=== PATIENT | male | born 1950 | race Caucasian/White ===

== ENCOUNTER 2018-01-30 11:02 | Day surgery (SDC) | payer MEDICARE ==
[2018-01-24 10:38] VITALS: BMI 34.5
[~2018-01-30 11:02] MED LIST: ALPRAZolam 0.25 MG TAB PO PRN; ASPIRIN 325 MG TAB PO STA; SODIUM CHLORIDE 0.9% 1,000 ML in EMPTY BAG 1 BAG IV ONE
[2018-01-30 11:19] LABS: Glucose,Whole Blood 92 mg/dL (75-99)
[2018-01-30 11:29] VITALS: TEMP 98.2
[2018-01-30] MEDS ORDERED: ASPIRIN 81 MG ONE (11:31)
[2018-01-30] MEDS ORDERED: VERAPAMIL 2.5 MG/ML 2 ML AMP ONE (12:39)
[2018-01-30] MEDS ORDERED: LIDOCAINE 2% INJ 20 MG/ML (20 ML MDV) ONE (12:39)
[2018-01-30] MEDS ORDERED: fentaNYL (PF) 50 MCG/ML 2 ML AMP ONE (12:39)
[2018-01-30] MEDS ORDERED: fentaNYL (PF) 50 MCG/ML 2 ML AMP IV ONE (12:50)
[2018-01-30] MEDS ORDERED: LIDOCAINE 2% INJ 20 MG/ML SQ ONE (12:52)
[2018-01-30] MEDS ORDERED: VERAPAMIL SYRINGE (5 MG/10 ML) INTRAARTER ONE (12:55)
[2018-01-30 13:01] LABS: Basophils # (A) 0.1 k/uL (0-0.2); Basophils % (A) 1 %; Eosinophils # (A) 0.2 k/uL (0-0.7); Eosinophils % (A) 2 %; HCT 53.1 % (39.0-53.0); HGB 17.2 gm/dL (13.0-17.5); Lymphocytes # (A) 4.5 k/uL (1.0-4.8); Lymphocytes % (A) 41 %; MCHC 32.5 g/dL (31.0-37.0); MCV 86.3 fL (80.0-100.0); Monocytes # (A) 0.6 k/uL (0-1.0); Monocytes % (A) 5 %; Neutrophils # (A) 5.4 k/uL (1.3-7.7); Neutrophils % (A) 49 %; Platelet Count 218 k/uL (150-450); RBC 6.15 m/uL (4.30-5.90); RDW 14.7 % (11.5-15.5); WBC 11.1 k/uL (3.8-10.6)
[2018-01-30] MEDS ORDERED: HEPARIN SODIUM 1,000 UN/ML (10ML VL) ONE (13:03)
[2018-01-30] MEDS ORDERED: IOPAMIDOL-370 125ML BTL INJ ONE (13:07)
[2018-01-30] MEDS ORDERED: HEPARIN SODIUM 1,000 UN/ML (10ML VL) IV ONE (13:08)
[2018-01-30] MEDS ORDERED: RX INFO: IV CONTRAST WAS GIVEN 1 EACH MISC MISCELLANE PRN (13:22)
[2018-01-30] MEDS ORDERED: NITROGLYCERIN SL TABS 0.4 MG TAB SUBLINGUAL PRN (13:23)
[2018-01-30] MEDS ORDERED: SODIUM CHLORIDE 0.9% 1,000 ML IV SCH (13:30)
[2018-01-30 13:52] VITALS: RESP 18
--- NOTE | 2018-01-30 13:54 | CC ---
CARDIAC CATHETERIZATION REPORT Mr. Fermin is a 67-year-old male with known history of hypertension, hyperlipidemia, diabetes mellitus, prior history of coronary artery disease, who presented with symptoms of progressive angina pectoris. In view of that, recommendation made regarding cardiac catheterization. The procedures, risks and complication were discussed with the patient who was in full understanding and agreement. Of note, the patient has underwent percutaneous revascularization of the LAD in 2016 and subsequently repeat intervention in 2017. PROCEDURE: Patient was brought to the [facility] in a fasting semi-sedated state after receiving fentanyl and Benadryl and achieving moderate conscious sedated state. Using Xylocaine anesthesia and Seldinger technique, a 6-Ukrainian sheath was introduced in the right radial artery. Selective right and left angiography were performed using 5-Ukrainian 4 bend right and left Austin catheter. Multiple views of the coronary artery including hemiaxial views were obtained. Following that, a 5-Ukrainian tight pigtail catheter was introduced into left ventricle and a 30 degree MADRID view of the left ventricle was obtained. Following that, the catheter and sheaths were removed. Hemostasis was obtained with deployment of a TR band. There was no immediate complication. Patient is returned to his room in stable condition. Of note, the patient received 5000 units of intravenous heparin as well as intra-arterial verapamil. FINDINGS: 1. FLUOROSCOPY: There was significant calcification involving the coronary arteries. 2. LEFT MAIN: This is a short size vessel, bifurcating into left circumflex, left anterior descending artery. Left main coronary artery has no evidence of high- grade stenosis. 3. LEFT ANTERIOR DESCENDING ARTERY: This is a large-sized vessel reaching toward the apex with a wraparound apex segment giving rise to 3 diagonal branches. The stented segment in the proximal LAD is patent. The stented segment in the mid LAD has a long segment of in-stent restenosis and a significant stenosis involving involving the third diagonal branch. The rest of the vessel has no high-grade stenosis. 4. LEFT CIRCUMFLEX: This is a nondominant vessel giving rise to 2 obtuse marginal branches, the first one is large in caliber. Both of them have 80%-90% stenosis at the takeoff. 5. RIGHT CORONARY ARTERY: This is a calcified vessel, dominant, bifurcating distally into PDA and posterolateral segment and branches. The right coronary artery in mid segment has a 70%-80% stenosis. The rest of the vessel has no high-grade stenosis. 6. LEFT VENTRICULOGRAM: Left ventriculogram is performed in 30 degree MADRID view and revealed an intra-apical akinesis. The ejection fraction is estimated at 40%-45%. There was no significant mitral regurgitation. HEMODYNAMICS: There was no gradient across the aortic valve. The left ventricular end-diastolic pressure was 60 mmHg. CONCLUSION: 1. Significant in-stent restenosis of the left anterior descending artery with a obstructive disease in the diagonal branch. 2. Significant disease in the right coronary artery as well as the left circumflex. 3. Moderately impaired left ventricular systolic function. RECOMMENDATION: In view of finding anatomy and a history of diabetes mellitus, I have recommended proceeding with coronary artery bypass grafting, the rationale behind the recommendation was discussed with the patient who is in full understanding and agreement. Duration of the procedure 21 minute. MMODL / IJN: [id number] /
--- NOTE | 2018-01-30 14:00 | LTR ---
DATE OF SERVICE: 01/30/2018 RE: Wayne Fermin Dear Dr. Miles; I had the pleasure to perform cardiac catheterization on Mr. Fermin at [facility] on January 30, 2018. A full copy of the procedure note will be forwarded to you. In brief, he was found to have significant progression of disease with significant in- stent restenoses and based on those findings, I recommend proceeding with evaluation for coronary artery bypass grafting. I will keep you updated on his progress and thank you again for allowing me to participate in this patient's care. Please feel free to call for any questions. Sincerely yours, Felicia Randall MD MMGENOL / TERENCEN: [id number] /
--- NOTE | 2018-01-30 14:38 | P.GSCN ---
<Shanel Gutiérrez - Last Filed: 01/30/18 14:24> History of Present Illness Consult date: 01/30/18 Reason for Consult: Multivessel coronary artery disease, surgical revascularization recommendations. Requesting physician: Felicia Randall History of present illness: This is a 67-year-old gentleman who follows with Dr. Alexander Miles on an outpatient basis. He does have a previous medical history of insulin-dependent diabetes mellitus, currently on insulin pump, coronary artery disease with previous myocardial infarction in 2016, stent placement to the proximal LAD in March 2016, stent placement to the ostial diagonal and mid LAD in December 2016, hypertension, hyperlipidemia, family history of early coronary artery disease, obstructive sleep apnea status post surgical revision and no current CPAP use, previous tobacco dependence, patient quit smoking 30-40 years ago. This gentleman presented to Dr. Randall's office with complaints of burning type chest pain with activity, relieved at rest. Associated symptoms include shortness of breath and diaphoresis. Patient denies paroxysmal nocturnal dyspnea, orthopnea, edema, palpitations, syncopal episodes, or stroke-like symptoms. He was brought to [facility] today for elective heart catheterization and was found to have right coronary artery stenosis of 70 %, circumflex stenosis of 90%, proximal LAD stenosis 20%, mid LAD stenosis 95%. LV gram was completed and demonstrated an ejection fraction of 45%. Dr. Epstein from cardiothoracic surgery was consulted regarding surgical revascularization recommendations. Review of Systems 14 point review of systems was completed and was negative except as noted. - Cardiovascular Reports as per HPI, Reports chest pain, Reports decreased exercise tolerance, Reports dyspnea on exertion, Reports high blood pressure, Reports palpitations, Reports shortness of breath - Respiratory Reports as per HPI, Reports dyspnea, Reports sleep apnea, Reports snoring - Gastrointestinal Reports as per HPI, Reports heartburn - Musculoskeletal bilateral: knee pain (Patient needs knee surgery but can't have until he receives cardiac clearance) Past Medical History Past Medical History: Coronary Artery Disease (CAD), COPD, Diabetes Mellitus, Hyperlipidemia, Hypertension, Myocardial Infarction (CT), Sleep Apnea/CPAP/BIPAP Additional Past Medical History / Comment(s): NO CPAP MACHINE (HAD SX), AWAITING SX ON DESTINI KNEES Last Myocardial Infarction Date:: 12/18/16 History of Any Multi-Drug Resistant Organisms: None Reported Past Surgical History: Appendectomy, Heart Catheterization With Stent, Hernia Repair, Tonsillectomy Additional Past Surgical History / Comment(s): 4 HEART STENTS, surgery for sleep apnea, INGUINAL HERNIA Past Anesthesia/Blood Transfusion Reactions: No Reported Reaction Date of Last Stent Placement:: 12/18/17 Past Psychological History: No Psychological Hx Reported Smoking Status: Former smoker Past Alcohol Use History: None Reported Past Drug Use History: None Reported - Past Family History Mother Family Medical History: Osteoarthritis (OA) Additional Family Medical History / Comment(s): MOM IS 86 YEARS OLD. Father Family Medical History: Coronary Artery Disease (CAD), Myocardial Infarction (CT ) Additional Family Medical History / Comment(s): HAD QUAD BYPASS . AT AGE [address] Medications and Allergies Home Medications Medication Instructions Recorded Confirmed Type Enalapril [Vasotec] 10 mg PO DAILY 02/02/16 01/30/18 History INSULIN LISPRO (humaLOG) [humaLOG] See Protocol SQ CONTINUOUS 02/02/16 01/24/18 History Metoprolol Tartrate [Lopressor] 50 mg PO DAILY 02/02/16 01/30/18 History Atorvastatin [Lipitor] 80 mg PO HS #90 tab 03/30/16 01/30/18 Rx Nitroglycerin Sl Tabs [Nitrostat] 0.4 mg SUBLINGUAL Q5M PRN #25 tab 03/30/16 Rx Aspirin [Adult Low Dose Aspirin EC] 81 mg PO DAILY 01/24/18 01/30/18 History Isosorbide Mononitrate [Isosorbide 30 mg PO DAILY 01/24/18 01/30/18 History Mononitrate ER] Levothyroxine Sodium [Synthroid] 50 mcg PO HS 01/24/18 01/30/18 History Allergies Allergy/AdvReac Type Severity Reaction Status Date / Time No Known Allergies Allergy Verified 01/24/18 10:33 Surgical - Exam Vital Signs Temp Pulse Resp BP Pulse Ox 98.2 F 67 18 127/70 94 L 01/30/18 11:20 01/30/18 11:20 01/30/18 11:20 01/30/18 11:20 01/30/18 11:20 - General well developed, well nourished, no distress, no pain, obese - Eyes PERRL, normal ocular movement - ENT no hearing loss - Neck no masses, no bruits, trachea midline - Respiratory Lungs sounds diminished bilaterally. Respirations even, nonlabored. Currently on room air with oxygen saturation 94%. No chest wall deformities. - Cardiovascular S1, S2 present. Regular rate and rhythm, sinus rhythm on telemetry with occasional PVCs. Palpable peripheral pulses bilaterally. No edema present. No varicosities noted to bilateral lower extremities. Left radial Issac's test is negative. - Abdomen Abdomen: soft, non tender, bowel sounds - Genitourinary Deferred - Rectum Deferred - Integumentary no rash, no growths, no abnormal pigmentation - Neurologic normal coordination, normal sensation - Psychiatric oriented to time, oriented to person, oriented to place, speech is normal, memory intact Results - Labs 01/30/18 11:20 Abnormal Lab Results - Last 24 Hours (Table) 01/30/18 Range/Units 11:20 WBC 11.1 H (3.8-10.6) k/uL RBC 6.15 H (4.30-5.90) m/uL Hct 53.1 H (39.0-53.0) % - Imaging Additional studies: Cardiac catheterization films reviewed. Assessment and Plan (1) Coronary artery disease Current Visit: Yes Status: Chronic Code(s): I25.10 - ATHSCL HEART DISEASE OF [place] CORONARY ARTERY W/O ANG PCTRS SNOMED Code(s): 39031825 (2) Insulin dependent diabetes mellitus Current Visit: Yes Status: Chronic Code(s): E11.9 - TYPE 2 DIABETES MELLITUS WITHOUT COMPLICATIONS; Z79.4 - TELEX OPERATOR (CURRENT) USE OF INSULIN SNOMED Code(s): 13788492 (3) History of myocardial infarction Current Visit: No Status: Resolved Code(s): I25.2 - OLD MYOCARDIAL INFARCTION SNOMED Code(s): 140079452 (4) History of coronary artery stent placement Current Visit: Yes Status: Chronic Code(s): Z95.5 - PRESENCE OF CORONARY ANGIOPLASTY IMPLANT AND GRAFT SNOMED Code(s): 816807559 (5) Hypertension Current Visit: Yes Status: Chronic Code(s): I10 - ESSENTIAL (PRIMARY) HYPERTENSION SNOMED Code(s): 83501810 (6) Hyperlipidemia Current Visit: Yes Status: Chronic Code(s): E78.5 - HYPERLIPIDEMIA, UNSPECIFIED SNOMED Code(s): 92190542 (7) History of obstructive sleep apnea Current Visit: Yes Status: Acute Code(s): Z86.69 - PERSONAL HISTORY OF DIS OF THE NERVOUS SYS AND SENSE ORGANS SNOMED Code(s): 821920236 (8) Family history of premature coronary artery disease Current Visit: Yes Status: Chronic Code(s): Z82.49 - FAMILY HX OF ISCHEM HEART DIS AND OTH DIS OF THE CIRC SYS SNOMED Code(s): 708849728 (9) Tobacco dependence in remission Current Visit: No Status: Resolved Code(s): F17.201 - NICOTINE DEPENDENCE, UNSPECIFIED, IN REMISSION SNOMED Code(s): 613237250 (10) Obesity (BMI 30-39.9) Current Visit: Yes Status: Chronic Code(s): E66.9 - OBESITY, UNSPECIFIED SNOMED Code(s): 406816296 Plan: The patient was seen and examined at the bedside in the [facility] with family present. Chart/diagnostics were reviewed. Will obtain relevant studies are completed it Dr. Randall's office. We will discuss the case in detail with Dr. Epstein. Preoperative teaching initiated, all questions answered. Preoperative testing initiated. Would recommend continuing aspirin, statin, beta lauri, KAIA inhibitor, Plavix. Patient will need to be off Plavix for 5-7 days prior to surgery. Medical management per Dr. Randall, Dr. Miles. More recommendations to follow. Thank you Dr. Randall for this consult. We look forward to working with you in the care of your patient. Time with Patient: Greater than 30 <Jd Epstein R - Last Filed: 01/30/18 15:36> Surgical - Exam Vital Signs Temp Pulse Resp BP Pulse Ox 98.2 F 67 18 127/70 94 L 01/30/18 11:20 01/30/18 11:20 01/30/18 11:20 01/30/18 11:20 01/30/18 11:20 Results - Labs 01/30/18 11:20 Abnormal Lab Results - Last 24 Hours (Table) 01/30/18 Range/Units 11:20 WBC 11.1 H (3.8-10.6) k/uL RBC 6.15 H (4.30-5.90) m/uL Hct 53.1 H (39.0-53.0) % Assessment and Plan Assessment: 67-year-old male with previous stenting of the left anterior descending in 2016 here in [place] and subsequent restenting of the LAD more distally in [place] in 2017. Patient now presents with anginal symptomatology. He is found to have three-vessel coronary artery disease with in-stent restenosis in the LAD more distal stent. Ventricular function is somewhat diminished although still above 40%. The anterior wall is somewhat hypokinetic. Recommendation is for coronary artery bypass surgery per Dr. Tate are some on and I agree with this recommendation. Plan bypass of the LAD beyond the stents the right coronary artery and the first obtuse marginal coronary artery. We will attempt to bypass the second obtuse marginal coronary artery, although it is a smaller and somewhat diseased vessel. Coronary bypass surgery will likely be performed by Dr. Selam More. Patient was seen and examined with the nurse practitioner. Films were reviewed with Dr. Randall. I agree with the evaluation of the nurse practitioner as documented. Met with the patient and his family. The indications for surgery, risks versus benefits and possible complications were outlined. STS risk for the procedure should be about 2% mortality. This was discussed with the patient. Patient's questions were answered to the best of my ability. Plan is to stop his Plavix and proceed with surgery sometime later next week.
[2018-01-30 14:48] VITALS: BP 115/79; PULSE 68
--- NOTE | 2018-01-30 15:52 | US ---
EXAMINATION TYPE: US carotid duplex BILAT DATE OF EXAM: 01/30/2018 COMPARISON: NONE CLINICAL HISTORY: PreOp cardiac surgery. Pre op cardiac surgery EXAM MEASUREMENTS: RIGHT: Peak Systolic Velocity (PSV) cm/sec ----- Right CCA: 48.8 ----- Right ICA: 47.4 ----- Right ECA: 95.0 ICA/CCA ratio: 1.0 RIGHT: End Diastole cm/sec ----- Right CCA: 10.8 ----- Right ICA: 17.0 ----- Right ECA: 0.0 LEFT: Peak Systolic Velocity (PSV) cm/sec ----- Left CCA: 51.7 ----- Left ICA: 64.5 ----- Left ECA: 112.9 ICA/CCA ratio: 1.2 LEFT: End Diastole cm/sec ----- Left CCA: 8.5 ----- Left ICA: 13.4 ----- Left ECA: 0.0 VERTEBRALS (direction of flow): Right Vertebral: Antegrade Left Vertebral: Antegrade Rhythm: Arrhythmia Bilateral intimal thickening, plaque bilateral bulb and proximal ICA greater on left side, no elevate d velocities, no significant stenosis. IMPRESSION: 1. Bilateral areas of plaque with no significant hemodynamic stenosis bilaterally. Criteria for Assigning % of Stenosis / Diameter reduction (Estimation based on the indirect measurements of the internal carotid artery velocities (ICA PSV). 1. Normal (no stenosis)=ICA PSV < 125 cm/s: ratio < 2.0: ICA EDV<40 cm/s. 2. Less than 50% stenosis=ICA PSV < 125 cm/s: ratio < 2.0: ICA EDV<40 cm/s. 3. 50 to 69% stenosis=ICA PSV of 125 to 230 cm/s: ration 2.0 ? 4.0: ICA EDV 40-100 cm/s. 4. Greater than 70% stenosis to near occlusion= ICA PSV > 230 cm/s: ratio > 4.0: ICA EDV > 100 cm/s. 5. Near occlusion= ICA PSV velocities may be low or undetectable: variable ratio and ICA EDV. 6. Total occlusion=unable to detect flow.
[2018-01-30 16:05] LABS: Basophils % (A) 0 %; Eosinophils # (A) 0.2 k/uL (0-0.7); Eosinophils % (A) 3 %; HGB 15.5 gm/dL (13.0-17.5); Lymphocytes # (A) 1.9 k/uL (1.0-4.8); Lymphocytes % (A) 27 %; MCH 27.7 pg (25.0-35.0); MCHC 31.6 g/dL (31.0-37.0); MCV 87.4 fL (80.0-100.0); Mean Platelet Volume 7.8; Monocytes # (A) 0.4 k/uL (0-1.0); Monocytes % (A) 5 %; Neutrophils # (A) 4.5 k/uL (1.3-7.7); Neutrophils % (A) 64 %; Platelet Count 171 k/uL (150-450); RDW 14.8 % (11.5-15.5); WBC 7.1 k/uL (3.8-10.6)
[2018-01-30 16:18] LABS: INR 1.1 (<1.2); Partial Thromboplastin Time 27.7 sec (22.0-30.0); Prothrombin Time 10.9 sec (9.0-12.0)
[2018-01-30 16:22] LABS: ALT 23 U/L (21-72); AST 21 U/L (17-59); Albumin 3.9 g/dL (3.5-5.0); Alkaline Phosphatase 76 U/L (38-126); Anion Gap 15 mmol/L; Blood Urea Nitrogen 14 mg/dL (9-20); Calcium 9.8 mg/dL (8.4-10.2); Carbon Dioxide 27 mmol/L (22-30); Chloride 102 mmol/L (98-107); Glucose 218 mg/dL (74-99); Magnesium 1.5 mg/dL (1.6-2.3); Potassium 4.5 mmol/L (3.5-5.1); Sodium 144 mmol/L (137-145); Total Bilirubin 0.4 mg/dL (0.2-1.3); Total Protein 6.2 g/dL (6.3-8.2)
[2018-01-30 16:58] LABS: Appearance,Urine Clear (Clear); Bilirubin,Urine Negative (Negative); Blood,Urine Negative (Negative); Color,Urine Yellow; Glucose,Urine (UA) 2+ (Negative); Ketones,Urine Negative (Negative); Leukocyte Esterase,Urine Negative (Negative); Nitrite,Urine Negative (Negative); Protein,Urine Trace (Negative); Urobilinogen,Urine <2.0 mg/dL (<2.0)
--- NOTE | 2018-01-30 17:22 | XR ---
EXAMINATION TYPE: XR chest 2V DATE OF EXAM: 01/30/2018 COMPARISON: 06/08/2016 HISTORY: Preop heart surgery TECHNIQUE: Frontal and lateral views of the chest are obtained. FINDINGS: There is no heart failure nor confluent pneumonic infiltrate. Costophrenic angles are shaneka r. There are chest leads. Bony thorax is intact. IMPRESSION: No active cardiopulmonary disease. No change.
[2018-01-30 17:40] LABS: Specific Gravity,Urine >1.050 (1.001-1.035)
[2018-01-30] MEDS ORDERED: LEVOTHYROXINE 50 MCG TAB PO SCH (21:00)
[2018-01-30] MEDS ORDERED: ATORVASTATIN 80 MG TAB PO SCH (21:00)
[2018-01-31 01:38] LABS: Hemoglobin A1C 8.8 % (4.0-6.0)
[2018-01-31 02:16] LABS: Hepatitis A Antibody IgM Non-Reactive (Non-Reactive); Hepatitis B Core IgM Non-Reactive (Non-Reactive)
[2018-01-31] MEDS ORDERED: METOPROLOL TARTRATE 50 MG TAB PO SCH (09:00)
[2018-01-31] MEDS ORDERED: NON-FORMULARY DRUG (Enalapril 10 MG) PO SCH (09:00)
[2018-01-31] MEDS ORDERED: NON-FORMULARY DRUG (Aspirin [Adult Low Dose Aspirin Ec] 81 MG) PO SCH (09:00)
[2018-01-31] MEDS ORDERED: ISOSORBIDE MONONITRATE ER 30 MG TAB.ER.24H PO SCH (09:00)
--- NOTE | 2018-01-31 10:14 | ECHOF ---
Referral Reason:preop cabg MEASUREMENTS -------- HEIGHT: 182.9 cm WEIGHT: 109.3 kg BP: RVIDd: 3.5 cm (< 3.3) IVSd: 1.6 cm (0.6 - 1.1) LVIDd: 4.4 cm (3.9 - 5.3) LVPWd: 1.3 cm (0.6 - 1.1) IVSs: 1.8 cm LVIDs: 2.9 cm LVPWs: 1.7 cm Ao Diam: 3.7 cm (2.0 - 3.7) AV Cusp: 2.1 cm (1.5 - 2.6) LA Diam: 3.4 cm (2.7 - 3.8) MV EXCURSION: 16.790 mm (> 18.000) MV EF SLOPE: 72 mm/s (70 - 150) EPSS: 0.8 cm MV E Jerry: 0.60 m/s MV DecT: 249 ms MV A Jerry: 0.64 m/s MV E/A Ratio: 0.93 RAP: 5.00 mmHg RVSP: 7.97 mmHg FINDINGS -------- Sinus rhythm with extra systolic beats. This was a technically difficult study with suboptimal views. The left ventricular size is normal. There is moderate concentric left ventricular hypertrophy. O verall left ventricular systolic function is mildly impaired with, an EF between 45 - 50 %. Basal l ateral LV wall motion is hypokinetic. The right ventricle is mildly enlarged. The left atrium is normal in size. The right atrium is normal in size. Lumason used Aortic valve is trileaflet and is mildly thickened. The mitral valve leaflets are mildly thickened. There is trace mitral regurgitation. Trace tricuspid regurgitation present. The right ventricular systolic pressure, as measured by Dopp ler, is 7.97mmHg. Pulmonic valve appears structurally normal. The aortic root size is normal. Normal inferior vena cava with normal inspiratory collapse consistent with estimated right atrial pre ssure of 5 mmHg. The pericardium is normal. CONCLUSIONS -------- 1. Sinus rhythm with extra systolic beats. 2. This was a technically difficult study with suboptimal views. 3. The left ventricular size is normal. 4. There is moderate concentric left ventricular hypertrophy. 5. Overall left ventricular systolic function is mildly impaired with, an EF between 45 - 50 %. 6. Basal lateral LV wall motion is hypokinetic. 7. The right ventricle is mildly enlarged. 8. The left atrium is normal in size. 9. The right atrium is normal in size. 10. Lumason used 11. Aortic valve is trileaflet and is mildly thickened. 12. The mitral valve leaflets are mildly thickened. 13. There is trace mitral regurgitation. 14. Trace tricuspid regurgitation present. 15. The right ventricular systolic pressure, as measured by Doppler, is 7.97mmHg. 16. Pulmonic valve appears structurally normal. 17. The aortic root size is normal. 18. Normal inferior vena cava with normal inspiratory collapse consistent with estimated right atrial pressure of 5 mmHg. 19. The pericardium is normal. COMMUNITY SERVICES COORDINATOR: Shanel Quinn RDCS
--- NOTE | 2018-02-06 11:25 | P.VSCSTY ---
Greater Saphenous Vein Mapping This is bilateral lower extremity greater saphenous vein mapping. Date of service 01/30/2018 Vein quality and ultrasound appearance no wall changes or intraluminal thrombus are seen. Vein size groin right 11 x 9.8 groin left 7.4 x 7.7 High thigh right 5.8 x 6.2 high thigh left 7.3 x 6.2 Mid thigh right 5.6 x 5.3 mid thigh left 6.1 x 5.7 Above-knee right 6.2 x 4.8 above-knee left 6.4 x 4.7 Below knee right 5.7 x 4.5 below-knee left 5.9 x 4.6 Mid calf right 6.2 x 4.1 mid calf left 5.0 x 3.7 Ankle right 4.8 x 3.3 ankle left 4.6 x 3.3 Impression usable bilateral greater saphenous vein.
== END 2018-01-30 18:05 | disposition home or self-care (01) ==
LOC: CATHCVL 11:02
PROVIDERS: ATTEND Internal Medicine Interventional Cardiology
DX: T82.855A Stenosis of coronary artery stent, initial encounter (principal); I25.110 Atherosclerotic heart disease of native coronary artery with unstable angina pectoris; I25.84 Coronary atherosclerosis due to calcified coronary lesion; I10 Essential (primary) hypertension; Z87.891 Personal history of nicotine dependence; I51.7 Cardiomegaly; I08.1 Rheumatic disorders of both mitral and tricuspid valves; E78.2 Mixed hyperlipidemia; E11.9 Type 2 diabetes mellitus without complications; Z79.4 Long term (current) use of insulin; Z96.41 Presence of insulin pump (external) (internal); I65.23 Occlusion and stenosis of bilateral carotid arteries; J44.9 Chronic obstructive pulmonary disease, unspecified; Z82.49 Family history of ischemic heart disease and other diseases of the circulatory system; Z01.810 Encounter for preprocedural cardiovascular examination; I25.2 Old myocardial infarction; E66.9 Obesity, unspecified; Z68.30 Body mass index [BMI] 30.0-30.9, adult; G47.33 Obstructive sleep apnea (adult) (pediatric); Z79.02 Long term (current) use of antithrombotics/antiplatelets; Z79.82 Long term (current) use of aspirin; Z79.890 Hormone replacement therapy; Z79.899 Other long term (current) drug therapy
CPT/HCPCS: 94150; 93458; 86900; 86901; 80053; 80074; 84443; 83735; 85025; 85610; 85730; 86850; 81003; 87070; 87086; 83036; 71046; 93970; 93880; C8929; C1894; C1769; J2001; J3010; J1644; Q9950; Q9967; 93306

== ENCOUNTER → 2018-02-01 | Outpatient (CLI) | payer MEDICARE ==
--- NOTE | 2018-02-06 11:28 | P.ARTDOP ---
Arterial Doppler Bilateral radial artery studies: Doppler assessment shows no right to left or segmental pressure gradient. Digital plethysmography with radial artery compression shows no significant pressure change. Imaging shows the right to vary between 2.8 x 2.6 and 6.1 x 5.6 mm. The left varies between 2.6 x 2.8 and 5.2 x 5.3 mm. Impression: Large usable bilateral radial arteries.
== END | disposition home or self-care (01) ==
LOC: RADUSWWP 07:47
PROVIDERS: ATTEND Surgery
DX: Z01.818 Encounter for other preprocedural examination (principal); I25.10 Atherosclerotic heart disease of native coronary artery without angina pectoris
CPT/HCPCS: 93923; 93930

== ENCOUNTER 2018-02-05 05:33 | Inpatient (IN) | payer MEDICARE ==
[~2018-02-05 05:33] MED LIST changes: +ALBUMIN HUMAN 25% 50 ML IV ONE; +ALBUMIN HUMAN 5% 500 ML IVPB ONE; -ALPRAZolam 0.25 MG TAB PO PRN; +ASPIRIN 325 MG TAB PO ONE; -ASPIRIN 325 MG TAB PO STA; +ATORVASTATIN 10 MG TAB PO ONE; +CALCIUM CHLORIDE 100 MG/ML 10 ML SYRINGE IV ONE; +CHLORHEXIDINE GLUCONATE 15 ML CUP MUCOUS MEM ONE; +CLEVIDIPINE BUTYRATE 25 MG in EMPTY BAG 1 BAG IV ONE; +DEXTROSE 5% IN WATER 1,000 ML with POTASSIUM CHLORIDE 110 MEQ, MAGNESIUM SULFATE 16 MEQ... IV ONE; +DEXTROSE 5% IN WATER 1,000 ML with POTASSIUM CHLORIDE 25 MEQ, SODIUM CHLORIDE 2.5MEQ/ML... IRRIGATION ONE; +HEPARIN SODIUM 1,000 UN/ML (10ML VL) IV ONE; +HEPARIN SODIUM,PORCINE 5,000 UNIT in SODIUM CHLORIDE 0.9% 500 ML IV ONE; +INSULIN REGULAR 100 UNIT in SODIUM CHLORIDE 0.9% 100 ML IV ONE; +LACTATED RINGERS 1,000 ML IV ONE; +MAGNESIUM SULFATE MG 500 MG/ML VIAL IV ONE; +MANNITOL 25% 12.5 GM/50 ML VIAL IV ONE; +METOPROLOL TARTRATE 12.5 MG TAB PO ONE; +NITROGLYCERIN SL TABS 0.4 MG TAB SUBLINGUAL ONE; +NITROGLYCERIN-D5W PMX 25 MG/250 ML BTL IV ONE; +NITROGLYCERIN-D5W PMX 50 MG in DEXTROSE/WATER 1 250ML.BAG IV ONE; +NOREPINEPHRIN 4 MG-0.9% NS PMX 4 MG/250 ML ML IV ONE; +PAPAVERINE 360 MG in SODIUM CHLORIDE 0.9% 90 ML IV ONE; +PHENYLEPHRINE 40 MG in SODIUM CHLORIDE 0.9% 250 ML IV ONE; +PHENYLEPHRINE-0.9% NACL SYG 1 MG/10 ML SYRINGE IV ONE; +PROPOFOL 1,000 MG/100 ML VIAL IV ONE; +PROTAMINE SULFATE 10 MG/ML 25 ML VIAL IV ONE; +PROTAMINE SULFATE 250 MG in EMPTY BAG 1 BAG IV ONE; +SODIUM BICARB 8.4% 50 ML SYR (1 MEQ/ML) IV ONE; +SODIUM CHLORIDE 0.9% 1,000 ML IV ONE; -SODIUM CHLORIDE 0.9% 1,000 ML in EMPTY BAG 1 BAG IV ONE; +TRANEXAMIC ACID 2,000 MG in SODIUM CHLORIDE 0.9% 180 ML IV ONE; +ceFAZolin 1,000 MG in SODIUM CHLORIDE 0.9% IRRIGATIO 1,000 ML IRRIGATION ONE; +ceFAZolin 2,000 MG in SODIUM CHLORIDE 0.9% 30 ML IVPB ONE
[2018-02-05 06:17] LABS: Glucose,Whole Blood 111 mg/dL (75-99)
[2018-02-05] MEDS ORDERED: DILTIAZEM 50 MG in SODIUM CHLORIDE 0.9% 40 ML IV STA (07:56)
[2018-02-05 08:48] LABS: ABG Base Excess 0.9 mmol/L; ABG HCO3 26 mmol/L (21-25); ABG PCO2 42 mmHg (35-45); ABG PO2 324 mmHg (83-108); ABG Sodium Whole Blood 141 mmol/L (135-146); ABG TCO2 27 mmol/L (19-24)
[2018-02-05 11:00] LABS: ABG Base Excess 1.1 mmol/L; ABG HCO3 26 mmol/L (21-25); ABG Oxygen Saturation 99.9 % (94-97); ABG PCO2 40 mmHg (35-45); ABG PH 7.42 (7.35-7.45); ABG PO2 259 mmHg (83-108); ABG Potassium Whole Blood 4.2 mmol/L (3.4-4.5); ABG Sodium Whole Blood 139 mmol/L (135-146); ABG TCO2 27 mmol/L (19-24)
[2018-02-05 11:49] LABS: ABG Base Excess -0.2 mmol/L; ABG HCO3 26 mmol/L (21-25); ABG Oxygen Saturation 99.6 % (94-97); ABG PCO2 46 mmHg (35-45); ABG PH 7.36 (7.35-7.45); ABG PO2 187 mmHg (83-108); ABG Potassium Whole Blood 5.3 mmol/L (3.4-4.5); ABG Sodium Whole Blood 135 mmol/L (135-146); ABG TCO2 27 mmol/L (19-24)
[2018-02-05 12:17] LABS: ABG HCO3 25 mmol/L (21-25); ABG PCO2 45 mmHg (35-45); ABG PH 7.35 (7.35-7.45); ABG PO2 313 mmHg (83-108); ABG Potassium Whole Blood 4.7 mmol/L (3.4-4.5); ABG Sodium Whole Blood 137 mmol/L (135-146); ABG TCO2 26 mmol/L (19-24)
[2018-02-05 13:02] LABS: ABG Base Excess -1.3 mmol/L; ABG HCO3 25 mmol/L (21-25); ABG Oxygen Saturation 99.7 % (94-97); ABG PCO2 48 mmHg (35-45); ABG PH 7.32 (7.35-7.45); ABG PO2 229 mmHg (83-108); ABG Potassium Whole Blood 4.6 mmol/L (3.4-4.5); ABG Sodium Whole Blood 137 mmol/L (135-146); ABG TCO2 27 mmol/L (19-24)
[2018-02-05 13:25] LABS: ABG Base Excess -1.9 mmol/L; ABG HCO3 25 mmol/L (21-25); ABG Oxygen Saturation 95.4 % (94-97); ABG PCO2 49 mmHg (35-45); ABG PH 7.31 (7.35-7.45); ABG PO2 84 mmHg (83-108); ABG Sodium Whole Blood 139 mmol/L (135-146); ABG TCO2 26 mmol/L (19-24)
[2018-02-05] MEDS ORDERED: ONDANSETRON 4 MG/2 ML VIAL IVP PRN (14:07)
[2018-02-05] MEDS ORDERED: DEXTROSE 5% IN WATER 100 ML with AMIODARONE 150 MG IV PRN (14:07)
[2018-02-05] MEDS ORDERED: Phosphorus Replacement Protoco 1 EACH MISC MISCELLANE PRN (14:07)
[2018-02-05] MEDS ORDERED: Potassium Replacement Protocol 1 EACH MISC MISCELLANE PRN (14:07)
[2018-02-05] MEDS ORDERED: CALCIUM GLUCONATE 2,000 MG in SODIUM CHLORIDE 0.9% 100 ML IVPB PRN (14:07)
[2018-02-05] MEDS ORDERED: Magnesium Replacement Protocol 1 EACH MISC MISCELLANE PRN (14:07)
[2018-02-05] MEDS ORDERED: ASPIRIN 300 MG SUPP RECTAL STA (14:17)
[2018-02-05] MEDS: NITROGLYCERIN-D5W PMX 50 MG in DEXTROSE/WATER 1 250ML.BAG IV SCH (14:30)
[2018-02-05] MEDS: INSULIN REGULAR 100 UNIT in SODIUM CHLORIDE 0.9% 100 ML IV SCH (14:30)
[2018-02-05] MEDS: PROPOFOL 1,000 MG in EMPTY BAG 1 BAG IV SCH ×2 (14:30→23:25)
[2018-02-05 14:51] LABS: Glucose,Whole Blood 149 mg/dL (75-99)
[2018-02-05] MEDS: LACTATED RINGERS 1,000 ML IV SCH (14:57)
[2018-02-05 14:58] LABS: Ionized Calcium 5.1 mg/dL (4.5-5.3)
[2018-02-05 14:59] LABS: Basophils % (A) 0 %; Eosinophils # (A) 0.1 k/uL (0-0.7); Eosinophils % (A) 1 %; HCT 36.5 % (39.0-53.0); Lymphocytes # (A) 1.3 k/uL (1.0-4.8); Lymphocytes % (A) 22 %; MCH 28.4 pg (25.0-35.0); MCHC 32.6 g/dL (31.0-37.0); MCV 87.2 fL (80.0-100.0); Mean Platelet Volume 8.4; Monocytes # (A) 0.3 k/uL (0-1.0); Monocytes % (A) 5 %; Neutrophils % (A) 71 %; Platelet Count 113 k/uL (150-450); RBC 4.18 m/uL (4.30-5.90); RDW 14.7 % (11.5-15.5); WBC 5.6 k/uL (3.8-10.6)
[2018-02-05] MEDS ORDERED: AMIODARONE 450 MG in DEXTROSE 5% IN WATER 250 ML IV PRN ×2 (15:00)
[2018-02-05 15:02] LABS: INR 1.2 (<1.2); Partial Thromboplastin Time 30.5 sec (22.0-30.0); Prothrombin Time 11.3 sec (9.0-12.0)
[2018-02-05 15:05] LABS: ABG Base Excess -0.8 mmol/L; ABG HCO3 26 mmol/L (21-25); ABG Oxygen Saturation 99.7 % (94-97); ABG PCO2 52 mmHg (35-45); ABG PO2 297 mmHg (83-108); ABG TCO2 27 mmol/L (19-24)
[2018-02-05 15:09] LABS: ALT 16 U/L (21-72); AST 26 U/L (17-59); Albumin 3.4 g/dL (3.5-5.0); Alkaline Phosphatase 54 U/L (38-126); Anion Gap 13 mmol/L; Blood Urea Nitrogen 13 mg/dL (9-20); Calcium 8.8 mg/dL (8.4-10.2); Carbon Dioxide 25 mmol/L (22-30); Chloride 105 mmol/L (98-107); Glucose 150 mg/dL (74-99); HGB 11.9 gm/dL (13.0-17.5); Magnesium 2.2 mg/dL (1.6-2.3); Potassium 4.1 mmol/L (3.5-5.1); Sodium 143 mmol/L (137-145); Total Bilirubin 0.6 mg/dL (0.2-1.3); Total Protein 5.1 g/dL (6.3-8.2)
--- NOTE | 2018-02-05 15:12 | XR ---
EXAMINATION TYPE: XR chest 1V portable DATE OF EXAM: 02/05/2018 CLINICAL HISTORY: Postoperative cardiac surgery TECHNIQUE: Single AP portable frontal view of the chest is obtained. COMPARISON: Chest x-ray from January 30, 2018 FINDINGS: There is new endotracheal tube with tip at aortic knob level, approximately 2 to 3 cm abo ve kaleigh. Advise pulling back 2 to 3 cm. There is new orogastric tube projecting below left hemidiaphragm. There are new bilateral chest tubes . There is new right internal jugular [place] catheter with tip at level of the pulmonary outflow t ract. New sternal wires and mediastinal clips are present. There is persistent low lung volumes. There is s table mild cardiomegaly with new moderate central vascular congestion. There is right hilar linear at electasis and more focal left basilar atelectasis and/or less likely infiltrate. No large pleural eff usion or pneumothorax is seen bilaterally. IMPRESSION: 1. New tubes and lines as detailed above, advise pulling back endotracheal tube 2 to 3 cm. 2. Low lung volumes and mild cardiomegaly with new moderate central vascular congestion and patchy bi lateral atelectatic change most prominent in the left lung base.
[2018-02-05 15:41] LABS: Glucose,Whole Blood 145 mg/dL (75-99)
[2018-02-05] MEDS: IPRATROPIUM-ALBUTEROL 3 ML NEB INHALATION SCH ×3 (15:56→23:16)
--- NOTE | 2018-02-05 16:12 | OP ---
OPERATIVE REPORT DATE OF SURGERY: 02/05/2018. SURGEON: Selam More MD ASSISTANTS: 1. Orlando BUSH. 2. Thee De Leon. 3. Bhaskar Benjamin. PREOPERATIVE DIAGNOSES: 1. Triple-vessel coronary artery disease, status post remote stenting of his left anterior descending coronary artery x 2. 2. Mild left ventricular dysfunction. 3. Hypertension. 4. Insulin-dependent diabetes mellitus. 5. Varicose veins. POSTOPERATIVE DIAGNOSES: 1. Triple-vessel coronary artery disease, status post remote stenting of his left anterior descending coronary artery x 2. 2. Mild left ventricular dysfunction. 3. Hypertension. 4. Insulin-dependent diabetes mellitus. 5. Varicose veins. PROCEDURES: 1. Coronary artery bypass grafting x3 using the left internal mammary artery to the left anterior descending artery, left radial artery from the aorta to the second obtuse marginal artery, reverse saphenous vein graft from the aorta to the right coronary artery. 2. Endoscopic harvesting of the left radial artery. 3. Endoscopic harvesting of the right greater saphenous vein from knee to ankle level. 4. Intraoperative transesophageal echocardiogram and epiaortic scanning. 5. Intraoperative graft flow measurements using the [employer] system. INDICATION FOR SURGERY: Patient is a 67-year-old gentleman with prior intervention on his LAD twice with a total of 3 stents, with recurrent anginal symptoms. Cardiac catheterization showed triple-vessel coronary artery disease. The patient is on chronic Plavix. His ejection fraction showed a 45% ejection fraction with no significant valvular abnormality. He clinically had varicose veins. The vein appeared to be large by ultrasound. The patient was brought in today 5 days after stopping his Plavix for triple-vessel coronary artery bypass grafting toward LAD, the biggest obtuse marginal artery, and the right coronary artery. The STS risk was discussed with him and his family. They understood it and agreed to proceed. DESCRIPTION OF PROCEDURE: With patient in supine position, right internal jugular [place] catheter was inserted as well as a left brachial arterial line. The patient had a cardiac index of 2 , PA pressure of 48/23. Subsequently he was brought to the operating room, where general endotracheal anesthesia was induced uneventfully. Two grams of cefazolin were given intravenously. A Garcia catheter was inserted. The chest, abdomen, both lower extremities and the left upper extremity were prepped and draped using ChloraPrep. Ioban was used to cover the skin. Transesophageal echocardiogram confirmed the preoperative finding of mild anteroapical hypokinesia and an ejection fraction of around 50% and no significant valvular abnormality. Midline sternotomy was performed and no bone wax was used. The left hemisternum was elevated and the left internal mammary artery was harvested in a semi- skeletonized fashion. The left pleura was intentionally opened in this process and was drained with a 28-Wallisian chest tube. The right pleura had also a breach in it and was drained also with another 28-Wallisian chest tube. In the same setting, the left radial artery was harvested endoscopically. It was initially exposed at the wrist, where a clamping trial revealed a preserved oxygen pulsatile signal in the left index finger. The forearm incision was closed over a drain. Also in the same setting, the right greater saphenous vein was harvested endoscopically from ankle to knee level after administration of 1500 units of heparin. The leg incisions were closed over a drain. Mediastinal fat was transected between 2 ties and epiaortic scanning revealed concentric intimal thickening but no protruding atheroma of the ascending aorta. Pericardium was opened in an inverted T-fashion and a pericardial cradle was created. Findings included a short soft aorta and a normal-sized heart. After systemic heparinization after placement of respective pledgeted pursestrings, aortic cannulation with a 21-Wallisian soft flow cannula, venous cannulation via the right atrial appendage with dual-stage cannula was performed. Antegrade as well as retrograde cardioplegia catheters were placed. The mammary artery was double-clipped distally and transected. It had an excellent pulsatile flow in it and was around 2 mm in diameter. The radial artery was prepared by incising the fascia all along its volar aspect, and it appeared to be of good quality, around 3 mm in diameter. The vein was prepared and surprisingly was of good quality, around 4 mm in diameter, non-varicosed in the segment to be used. Cardiopulmonary bypass was initiated and we looked at the target. It appeared that the LAD beyond the stents, the right coronary artery before its bifurcation, and the largest obtuse marginal artery, which was low, would be the site for bypass. During aortic clamping, myocardial protection was achieved with an initial dose of antegrade cold blood cardioplegia followed by a dose of retrograde cold blood cardioplegia. All subsequent doses were given retrograde at 15-minute intervals. The first distal anastomosis was between a segment of reverse saphenous vein graft of good quality and the 2 mm right coronary artery before its bifurcation. The coronary artery was around 2 mm in diameter, thin-walled, and the anastomosis was completed using Prolene 7-0 in continuous fashion. The second distal anastomosis was between the left radial artery and the low second obtuse marginal artery, which was opened, was around 1.75 mm in diameter, thin-walled. This was performed using Prolene 7-0 in continuous fashion. The third and last distal anastomosis was between the left internal mammary artery and the distal left anterior descending artery beyond the stent, where it was around 1.75 mm in diameter, of good quality, using Prolene 7 -0 in continuous fashion. Re-warming was started as we punched out 2 buttons of the ascending aorta and completed the 2 proximal anastomoses of the vein graft and the radial artery respectively to the aorta using Prolene 6-0 and 7-0. Lidocaine and magnesium were given before unclamping the aorta. Patient required one single defibrillation to regain initially spontaneous sinus rhythm that was slow but then eventually picked up. Two monopolar atrial pacing wires were affixed to the respective pursestrings on the right atrium. One bipolar ventricular pacing wire was driven via the inferior aspect of the right ventricle. One substernal 32-Wallisian chest tube was placed. After a period of reperfusion and ensuring adequate distal and proximal anastomoses, we weaned off cardiopulmonary bypass without the need of any inotropic or vasopressor support. Graft flow measurements revealed excellent patent grafts. Test-dose and full-dose protamine was given. Decannulation followed. The right atrial appendage cannulation site was reinforced with a silk 0 tie. MMODL / IJN: [id number] / [facility]
[2018-02-05] MEDS: MORPHINE SULFATE 4 MG/ML SYRINGE IVP PRN (16:14)
[2018-02-05] MEDS: ceFAZolin IN SWFI 2 GM/20 ML SYRINGE IVP SCH ×2 (16:16→23:26)
[2018-02-05] MEDS ORDERED: fentaNYL (PF) 50 MCG/ML 2 ML AMP IVP STA (16:24)
[2018-02-05] MEDS: CLEVIDIPINE BUTYRATE 25 MG in EMPTY BAG 1 BAG IV SCH ×5 (16:25→22:53)
[2018-02-05 16:43] LABS: Glucose,Whole Blood 127 mg/dL (75-99)
[2018-02-05] MEDS: ACETAMINOPHEN IV (For NPO) 1,000 MG in EMPTY BAG 1 BAG IVPB SCH ×2 (16:45→23:25)
[2018-02-05 17:06] LABS: ABG Base Excess -2.2 mmol/L; ABG HCO3 26 mmol/L (21-25); ABG Oxygen Saturation 86.2 % (94-97); ABG PCO2 63 mmHg (35-45); ABG PH 7.22 (7.35-7.45); ABG PO2 63 mmHg (83-108); ABG TCO2 28 mmol/L (19-24)
[2018-02-05] MEDS ORDERED: CISATRACURIUM 2 MG/ML 5 ML VIAL IV ONE (17:19)
[2018-02-05] MEDS: CISATRACURIUM 200 MG in SODIUM CHLORIDE 0.9% 180 ML IV SCH (17:33)
[2018-02-05] MEDS ORDERED: METOPROLOL TARTRATE 5 MG/5 ML VIAL IVP ONE ×2 (17:45→21:14)
[2018-02-05] MEDS: METOPROLOL TARTRATE 5 MG/5 ML VIAL IVP SCH ×2 (17:47→17:58)
[2018-02-05 18:07] LABS: ABG Base Excess -0.9 mmol/L; ABG HCO3 26 mmol/L (21-25); ABG Oxygen Saturation 96.8 % (94-97); ABG PCO2 55 mmHg (35-45); ABG PH 7.28 (7.35-7.45); ABG PO2 101 mmHg (83-108); ABG TCO2 28 mmol/L (19-24)
[2018-02-05 18:10] LABS: Glucose,Whole Blood 138 mg/dL (75-99)
[2018-02-05 18:21] LABS: Basophils % (A) 0 %; Eosinophils # (A) 0.1 k/uL (0-0.7); Eosinophils % (A) 1 %; HGB 13.6 gm/dL (13.0-17.5); Lymphocytes # (A) 1.2 k/uL (1.0-4.8); Lymphocytes % (A) 15 %; MCH 28.8 pg (25.0-35.0); MCHC 33.1 g/dL (31.0-37.0); MCV 87.2 fL (80.0-100.0); Mean Platelet Volume 7.7; Monocytes # (A) 0.6 k/uL (0-1.0); Monocytes % (A) 7 %; Neutrophils % (A) 75 %; Platelet Count 158 k/uL (150-450); RBC 4.71 m/uL (4.30-5.90); RDW 14.9 % (11.5-15.5); WBC 7.9 k/uL (3.8-10.6)
[2018-02-05 19:15] LABS: Glucose,Whole Blood 134 mg/dL (75-99)
[2018-02-05 20:06] LABS: Glucose,Whole Blood 153 mg/dL (75-99)
[2018-02-05 20:35] LABS: Basophils % (A) 0 %; Eosinophils # (A) 0.2 k/uL (0-0.7); Eosinophils % (A) 2 %; HCT 39.9 % (39.0-53.0); HGB 14.1 gm/dL (13.0-17.5); Lymphocytes # (A) 1.1 k/uL (1.0-4.8); Lymphocytes % (A) 13 %; MCH 30.4 pg (25.0-35.0); MCHC 35.4 g/dL (31.0-37.0); Mean Platelet Volume 7.6; Monocytes # (A) 0.4 k/uL (0-1.0); Monocytes % (A) 5 %; Neutrophils # (A) 6.3 k/uL (1.3-7.7); Neutrophils % (A) 79 %; Platelet Count 173 k/uL (150-450); RBC 4.64 m/uL (4.30-5.90); RDW 15.1 % (11.5-15.5)
[2018-02-05 20:46] LABS: Anion Gap 12 mmol/L; Blood Urea Nitrogen 12 mg/dL (9-20); Carbon Dioxide 24 mmol/L (22-30); Chloride 103 mmol/L (98-107); Glucose 167 mg/dL (74-99); Potassium 4.7 mmol/L (3.5-5.1); Sodium 139 mmol/L (137-145)
[2018-02-05] MEDS: MUPIROCIN 2% OINT 22 GM TUBE NASAL SCH (20:47)
[2018-02-05] MEDS: CHLORHEXIDINE GLUCONATE 15 ML CUP MUCOUS MEM SCH (21:00)
[2018-02-05 21:05] LABS: Glucose,Whole Blood 167 mg/dL (75-99)
[2018-02-05 21:08] LABS: ABG Base Excess 0.1 mmol/L; ABG HCO3 25 mmol/L (21-25); ABG Oxygen Saturation 94.2 % (94-97); ABG PCO2 44 mmHg (35-45); ABG PH 7.37 (7.35-7.45); ABG PO2 73 mmHg (83-108); ABG TCO2 27 mmol/L (19-24)
[2018-02-05] MEDS ORDERED: MUPIROCIN 2% OINT 22 GM TUBE NASAL ONE (21:15)
[2018-02-05 22:10] LABS: Glucose,Whole Blood 171 mg/dL (75-99)
[2018-02-05 23:07] LABS: Glucose,Whole Blood 169 mg/dL (75-99)
[2018-02-05] MEDS: HEPARIN SODIUM,PORCINE 5,000 UNIT/ML 1 ML VIAL SQ SCH (23:26)
[2018-02-06] MEDS: INSULIN REGULAR 100 UNIT in SODIUM CHLORIDE 0.9% 100 ML IV SCH ×2 (00:25→13:29)
[2018-02-06 00:42] LABS: Glucose,Whole Blood 162 mg/dL (75-99)
[2018-02-06] MEDS: CLEVIDIPINE BUTYRATE 25 MG in EMPTY BAG 1 BAG IV SCH ×3 (00:48→08:21)
[2018-02-06 01:00] LABS: Glucose,Whole Blood 164 mg/dL (75-99)
[2018-02-06] MEDS: MORPHINE SULFATE 4 MG/ML SYRINGE IVP PRN ×5 (02:06→22:04)
[2018-02-06 02:14] LABS: Glucose,Whole Blood 150 mg/dL (75-99)
[2018-02-06] MEDS: PROPOFOL 1,000 MG in EMPTY BAG 1 BAG IV SCH ×2 (02:34→05:40)
[2018-02-06 03:02] LABS: Glucose,Whole Blood 145 mg/dL (75-99)
[2018-02-06] MEDS: IPRATROPIUM-ALBUTEROL 3 ML NEB INHALATION SCH ×8 (03:09→21:34)
[2018-02-06 04:04] LABS: Glucose,Whole Blood 141 mg/dL (75-99)
[2018-02-06 04:22] LABS: Basophils % (A) 0 %; Eosinophils # (A) 0.1 k/uL (0-0.7); Eosinophils % (A) 1 %; HCT 38.3 % (39.0-53.0); Lymphocytes # (A) 1.1 k/uL (1.0-4.8); Lymphocytes % (A) 17 %; MCH 29.3 pg (25.0-35.0); MCHC 33.9 g/dL (31.0-37.0); MCV 86.4 fL (80.0-100.0); Mean Platelet Volume 7.5; Monocytes # (A) 0.3 k/uL (0-1.0); Monocytes % (A) 5 %; Neutrophils % (A) 76 %; Platelet Count 147 k/uL (150-450); RBC 4.43 m/uL (4.30-5.90); RDW 15.1 % (11.5-15.5); WBC 6.6 k/uL (3.8-10.6)
[2018-02-06 04:36] LABS: Ionized Calcium 4.9 mg/dL (4.5-5.3)
[2018-02-06 04:44] LABS: ALT 22 U/L (21-72); AST 33 U/L (17-59); Albumin 3.4 g/dL (3.5-5.0); Alkaline Phosphatase 53 U/L (38-126); Anion Gap 12 mmol/L; Blood Urea Nitrogen 11 mg/dL (9-20); Calcium 8.9 mg/dL (8.4-10.2); Carbon Dioxide 24 mmol/L (22-30); Chloride 102 mmol/L (98-107); Glucose 143 mg/dL (74-99); Magnesium 1.8 mg/dL (1.6-2.3); Potassium 4.4 mmol/L (3.5-5.1); Sodium 138 mmol/L (137-145); Total Bilirubin 0.6 mg/dL (0.2-1.3); Total Protein 5.2 g/dL (6.3-8.2)
[2018-02-06 05:17] LABS: Glucose,Whole Blood 129 mg/dL (75-99)
[2018-02-06 05:18] LABS: INR 1.1 (<1.2); Partial Thromboplastin Time 26.4 sec (22.0-30.0); Prothrombin Time 10.8 sec (9.0-12.0)
[2018-02-06] MEDS: ACETAMINOPHEN IV (For NPO) 1,000 MG in EMPTY BAG 1 BAG IVPB SCH ×3 (05:23→18:18)
[2018-02-06 05:24] LABS: ABG Base Excess 1.2 mmol/L; ABG HCO3 26 mmol/L (21-25); ABG Oxygen Saturation 98.3 % (94-97); ABG PCO2 38 mmHg (35-45); ABG PH 7.43 (7.35-7.45); ABG PO2 129 mmHg (83-108); ABG TCO2 27 mmol/L (19-24)
[2018-02-06] MEDS: MAGNESIUM SULFATE-D5W PMX 1 GM in DEXTROSE/WATER 1 100ML.BAG IVPB SCH ×2 (05:53→07:09)
[2018-02-06 06:04] LABS: Glucose,Whole Blood 120 mg/dL (75-99)
[2018-02-06 07:04] LABS: Glucose,Whole Blood 133 mg/dL (75-99)
[2018-02-06] MEDS: LEVOTHYROXINE 50 MCG TAB PO SCH (07:09)
--- NOTE | 2018-02-06 07:11 | XR ---
EXAMINATION TYPE: XR chest 1V portable DATE OF EXAM: 02/06/2018 Comparison: 02/05/2018 Clinical History: 67-year-old male Post Operative Cardiac Surgery Findings: Median sternotomy wires are present with postsurgical clips in the mediastinum. ET tube tip at the le ashlyn of the medial clavicular heads, satisfactory. NG tube courses below the diaphragm. Bilateral ches t tubes and mediastinal drain are present. No appreciable pneumothorax. Mild perihilar and interstiti al densities show some improvement from prior exam. Persistent small left effusion with retrocardiac opacity. Impression: 1. Slight improvement in the mild pulmonary vascular congestion. 2. Continued small left effusion with retrocardiac atelectasis.
[2018-02-06] MEDS ORDERED: METOPROLOL TARTRATE 25 MG TAB PO STA (07:24)
[2018-02-06] MEDS ORDERED: FUROSEMIDE 10 MG/ML 2 ML VIAL IV STA ×2 (07:29→16:01)
--- NOTE | 2018-02-06 08:31 | P.CNPUL ---
History of Present Illness Consult date: 02/06/18 Reason for consult: other Chief complaint: Status post bypass grafting History of present illness: Pulmonary consult dated 02/06/2018 This is a 67-year-old male who is postop day #1, status post three-vessel bypass grafting. His primary care doctor is Dr. Alexander Miles. The patient has a history of insulin-dependent diabetes mellitus managed with insulin pump CAD with previous myocardial infarction 2016 and stent placement to the LAD hypertension hyperlipidemia family history of CAD sleep apnea syndrome and previous tobacco use although he quit 30-40 years ago. After surgery yesterday , we are having issues with oxygenation and ventilation. Vent changes were made both by myself and thoracic surgeon. Because of poor ventilation and oxygenation, the patient's PEEP had to be increased his FiO2 had to be increased and eventually the patient had to be heavily sedated and paralyzed. In part, this was related to rigors the patient was having, unresponsive to fentanyl. Nonetheless, the patient seemed to do well through the night and this morning the PEEP was dropped. The paralytic was discontinued as well. His arterial blood gases this morning were much improved and we were hopeful that he could be weaned and extubated. This morning, the patient started having some mild riders again, and I made the decision to transition the patient from propofol to Precedex. In addition, we decided to use morphine for control of riders and also additional Cleviprex for blood pressure control. The patient is also receiving IV acetaminophen for mild elevations in temperature. Chest x-ray labs and medications are all reviewed this morning. Review of Systems ROS unobtainable: due to endotracheal tube Past Medical History Past Medical History: Coronary Artery Disease (CAD), COPD, Diabetes Mellitus, Hyperlipidemia, Hypertension, Myocardial Infarction (PR), Sleep Apnea/CPAP/BIPAP Additional Past Medical History / Comment(s): NO CPAP MACHINE, ARTHRITIS KNEES, VARICOSE VEINS, SOB WITH WALKING, INSULIN PUMP. Last Myocardial Infarction Date:: 12/18/16 History of Any Multi-Drug Resistant Organisms: None Reported Past Surgical History: Appendectomy, Heart Catheterization With Stent, Hernia Repair, Tonsillectomy Additional Past Surgical History / Comment(s): 4 HEART STENTS (2015 @ [facility] & 2017 @ [place]), surgery for sleep apnea, INGUINAL HERNIA Past Anesthesia/Blood Transfusion Reactions: No Reported Reaction Date of Last Stent Placement:: 12/18/16 Past Psychological History: No Psychological Hx Reported Smoking Status: Former smoker Past Alcohol Use History: Rare Additional Past Alcohol Use History / Comment(s): STARTED SMOKING AT AGE 16 QUIT IN 1984 SMOKED 2PPD Past Drug Use History: None Reported - Past Family History Mother Family Medical History: Osteoarthritis (OA) Additional Family Medical History / Comment(s): . Father Family Medical History: Coronary Artery Disease (CAD), Myocardial Infarction (PR ) Additional Family Medical History / Comment(s): HAD QUAD BYPASS . AT AGE 60 FROM [place] Medications and Allergies Home Medications Medication Instructions Recorded Confirmed Type Metoprolol Tartrate [Lopressor] 50 mg PO DAILY 02/02/16 02/05/18 History Atorvastatin [Lipitor] 80 mg PO HS #90 tab 03/30/16 02/05/18 Rx Nitroglycerin Sl Tabs [Nitrostat] 0.4 mg SUBLINGUAL Q5M PRN #25 tab 03/30/1610/25 Rx Aspirin [Adult Low Dose Aspirin EC] 81 mg PO DAILY 01/24/18 02/05/18 History Isosorbide Mononitrate [Isosorbide 30 mg PO DAILY 01/24/18 02/05/18 History Mononitrate ER] Levothyroxine Sodium [Synthroid] 50 mcg PO HS 01/24/18 02/05/18 History Clopidogrel [Plavix] 75 mg PO DAILY 02/04/18 02/05/18 History Enalapril [Vasotec] 20 mg PO DAILY 02/04/18 02/05/18 History Mupirocin 2% Nasal Oint [Bactroban 1 applic NASAL BID 02/04/18 02/05/18 History 2% Nasal Oint] INSULIN LISPRO (For Pump) [humaLOG 0.01 units SQ-PUMP CONTINUOUS 02/05/18 History (For Pump)] Allergies Allergy/AdvReac Type Severity Reaction Status Date / Time No Known Allergies Allergy Verified 02/05/18 14:28 Physical Exam Osteopathic Statement: *. No significant issues noted on an osteopathic structural exam other than those noted in the History and Physical/Consult. Vitals: Vital Signs Temp Pulse Pulse Resp BP Pulse Ox 02/06/18 07:45 101 H 02/06/18 07:17 100 02/06/18 07:00 98.8 F 96 95 22 127/66 100 05/02/18 06:30 100 22 99 05/02/18 06:00 99.3 F 98 98 22 106/58 97 05/02/18 05:30 101 H 22 100 05/18 05:00 99.5 F 99 98 22 136/68 100 05/02/18 04:30 95 22 100 05//18 04:00 99.1 F 94 94 22 120/66 99 05/02/18 03:31 90 05/0218 03:30 90 22 98 05/02/18 03:10 92 05/02/18 03:00 99 F 93 92 22 116/62 97 05/02/18 02:30 93 22 97 05/18 02:00 99.3 F 94 93 22 123/61 99 //18 01:30 89 22 99 05//18 01:00 99.5 F 83 94 22 134/56 98 05/02/18 00:30 86 22 97 02/06/18 00:00 87 22 98 02/05/18 23:34 93 02/05/18 23:30 94 22 98 02/05/18 23:16 96 02/05/18 23:00 88 22 97 02/05/18 22:30 85 22 97 02/05/18 22:00 86 22 95 02/05/18 21:30 88 22 95 02/05/18 21:00 104 H 24 96 02/05/18 20:30 97 22 94 L 02/05/18 20:02 98 02/05/18 20:00 105 H 22 94 L 02/05/18 19:52 109 H 02/05/18 19:30 101 H 22 94 L 02/05/18 19:00 101 H 22 95 02/05/18 18:30 99 16 99 0518 18:00 104 H 16 99 02/05/18 17:45 116 H 16 99 02/05/18 17:30 118 H 16 97 02/05/18 17:15 117 H 16 93 L 02/05/18 17:00 117 H 16 88 L 02/05/18 16:45 108 H 93 L 02/05/18 16:30 106 H 22 100 02/05/18 16:15 103 H 20 99 02/05/18 16:00 103 H 18 99 02/05/18 15:45 100 18 97 02/05/18 15:30 94 16 97 02/05/18 15:15 85 15 100 02/05/18 15:00 79 14 100 02/05/18 14:45 78 14 100 Intake and Output 02/05/18 02/06/18 02/06/18 22:59 06:59 14:59 Intake Total 819.355 938.484 138.789 Output Total 2540 700 45 Balance -1720.645 238.484 93.789 Intake: IV 421.5 460 80 Cardiac Output 20 60 30 Lactated Ringers 1,000 ml 400 400 50 @ 50 mls/hr IV .Q20H HUEY Rx#:[id number] Nitroglycerin-D5w Pmx 50 1.5 mg In Dextrose/Water 1 250ml.bag @ 5 MCG/MIN 1.5 mls/hr IV .Q24H HUEY Rx#: [id number] Intake, IV Titration 397.855 478.484 58.789 Amount Cisatracurium 200 mg In 23.871 120.554 Sodium Chloride 0.9% 180 ml @ 2 MCG/KG/MIN 13.08 mls/hr IV .[id number] HUEY Rx #:[id number] Clevidipine Butyrate 25 200.000 84.200 4.4 mg In Empty Bag 1 bag @ 1 MG/HR 2 mls/hr IV .Q24H HUEY Rx#:[id number] Insulin Regular 100 unit 32.584 68.030 7.949 In Sodium Chloride 0.9% 100 ml @ Per Protocol IV .Q0M HUEY Rx#:[id number] Nitroglycerin-D5w Pmx 50 41.4 5.7 mg In Dextrose/Water 1 250ml.bag @ 5 MCG/MIN 1.5 mls/hr IV .Q24H HUEY Rx#: [id number] Propofol 1,000 mg In 100.0 200 46.44 Empty Bag 1 bag @ Titrate IV .Q0M HUEY Rx#: [id number] Output: Chest Tube Drainage 535 165 10 Chest Tube Mediastinal 330 100 10 Chest Tube Right Lateral 55 5 Chest Left Lateral Chest 150 60 Drainage 15 15 Left Wrist 5 5 Right Knee 10 10 Urine 1990 520 35 Other: Voiding Method Indwelling Catheter Indwelling Catheter Weight 117.6 kg ABP, PAP, CO, CI - Last 8 Hours Arterial Blood Pressure 111/65 Arterial Blood Pressure 112/64 Arterial Blood Pressure 105/60 Arterial Blood Pressure 134/68 Arterial Blood Pressure 118/67 Arterial Blood Pressure 125/68 Arterial Blood Pressure 117/64 Arterial Blood Pressure 116/64 Arterial Blood Pressure 111/60 Arterial Blood Pressure 116/61 Arterial Blood Pressure 141/68 Arterial Blood Pressure 133/68 Arterial Blood Pressure 107/61 Arterial Blood Pressure 107/60 Pulmonary Artery Pressure 30/20 Pulmonary Artery Pressure 29/21 Pulmonary Artery Pressure 29/21 Pulmonary Artery Pressure 29/19 Pulmonary Artery Pressure 30/21 Pulmonary Artery Pressure 30/21 Pulmonary Artery Pressure 30/20 Pulmonary Artery Pressure 30/23 Pulmonary Artery Pressure 31/22 Pulmonary Artery Pressure 32/22 Pulmonary Artery Pressure 35/23 Pulmonary Artery Pressure 34/23 Pulmonary Artery Pressure 32/22 Pulmonary Artery Pressure 31/22 Cardiac Output 4.4 Cardiac Output 5.2 Cardiac Output 5.2 Cardiac Output 5.2 Cardiac Output 5.2 Cardiac Output 5.2 Cardiac Output 5.2 Cardiac Output 5.8 Cardiac Output 5.8 Cardiac Output 5.8 Cardiac Output 5.8 Cardiac Output 5.8 Cardiac Output 5.8 Cardiac Output 5.8 Cardiac Index 1.9 Cardiac Index 2.3 No acute distress, sedated, with mild pruritus. Endotracheal tube and NG tube noted. HEENT examination is grossly unremarkable. Mucous membranes are moist. Neck supple. Full range of motion. No adenopathy thyromegaly or neck vein distention. Cardiovascular examination reveals regular rhythm rate. S1-S2 normal. No S3 or S4. No discernible murmur noted. Lungs reveal mild rhonchi bilaterally. Breath sounds are equal. No wheezes or crackles. Abdomen soft without bowel sounds. No masses or tenderness. Extremities are intact. No cyanosis clubbing or edema. Skin is without rash or lesion. Neurologic examination could not be adequately assessed. Results - Laboratory Findings CBC and BMP: 02/06/18 04:00 02/06/18 04:00 ABG ABG pH 7.43 (7.35-7.45) 02/06/18 05:21 ABG pCO2 38 mmHg (35-45) 02/06/18 05:21 ABG pO2 129 mmHg (83-108) H 02/06/18 05:21 ABG O2 Saturation 98.3 % (94-97) H 02/06/18 05:21 PT/INR, D-dimer PT 10.8 sec (9.0-12.0) 02/06/18 04:00 INR 1.1 (<1.2) 02/06/18 04:00 Abnormal lab findings: Abnormal Labs 02/02/18 02/05/18 02/05/18 09:13 06:13 08:48 RBC Hgb Hct Plt Count INR APTT ABG pH ABG pCO2 ABG pO2 324 H ABG HCO3 26 H ABG Total CO2 27 H ABG O2 Saturation 100.0 H ABG Hematocrit ABG Potassium ABG Ionized Calcium ABG Glucose 147 H ABG Lactic Acid Hemoglobin Glucose POC Glucose (mg/dL) 111 H ALT Total Protein Albumin Arterial Blood Potassium Arterial Blood Glucose 147 H Crossmatch See Detail 02/05/18 02/05/18 02/05/18 11:00 11:49 12:17 RBC Hgb Hct Plt Count INR APTT ABG pH ABG pCO2 46 H ABG pO2 259 H 187 H 313 H ABG HCO3 26 H 26 H ABG Total CO2 27 H 27 H 26 H ABG O2 Saturation 99.9 H 99.6 H 100.0 H ABG Hematocrit ABG Potassium 5.3 H 4.7 H ABG Ionized Calcium 4.4 L ABG Glucose 159 H 229 H 216 H ABG Lactic Acid 1.9 H Hemoglobin 11.1 L 11.4 L Glucose POC Glucose (mg/dL) ALT Total Protein Albumin Arterial Blood Potassium 5.3 H 4.7 H Arterial Blood Glucose 159 H 229 H 216 H Crossmatch 02/05/18 02/05/18 02/05/18 13:02 13:25 14:46 RBC 4.18 L Hgb 11.9 L D Hct 36.5 L Plt Count 113 L INR APTT ABG pH 7.32 L 7.31 L ABG pCO2 48 H 49 H ABG pO2 229 H ABG HCO3 ABG Total CO2 27 H 26 H ABG O2 Saturation 99.7 H ABG Hematocrit 33 L ABG Potassium 4.6 H ABG Ionized Calcium ABG Glucose 206 H 196 H ABG Lactic Acid 2.6 H* 2.7 H* Hemoglobin 10.8 L 11.1 L Glucose POC Glucose (mg/dL) ALT Total Protein Albumin Arterial Blood Potassium 4.6 H Arterial Blood Glucose 206 H 196 H Crossmatch 02/05/18 02/05/1802/05/18 14:46 14:46 14:48 RBC Hgb Hct Plt Count INR 1.2 H APTT 30.5 H ABG pH ABG pCO2 ABG pO2 ABG HCO3 ABG Total CO2 ABG O2 Saturation ABG Hematocrit ABG Potassium ABG Ionized Calcium ABG Glucose ABG Lactic Acid Hemoglobin Glucose 150 H POC Glucose (mg/dL) 149 H ALT 16 L Total Protein 5.1 L Albumin 3.4 L Arterial Blood Potassium Arterial Blood Glucose Crossmatch 02/05/18 02/05/18 02/05/18 15:02 15:25 16:42 RBC Hgb Hct Plt Count INR APTT ABG pH 7.30 L ABG pCO2 52 H ABG pO2 297 H ABG HCO3 26 H ABG Total CO2 27 H ABG O2 Saturation 99.7 H ABG Hematocrit ABG Potassium ABG Ionized Calcium ABG Glucose ABG Lactic Acid Hemoglobin Glucose POC Glucose (mg/dL) 145 H 127 H ALT Total Protein Albumin Arterial Blood Potassium Arterial Blood Glucose Crossmatch 02/05/18 02/05/18 02/05/18 16:58 18:03 18:09 RBC Hgb Hct Plt Count INR APTT ABG pH 7.22 L 7.28 L ABG pCO2 63 H 55 H ABG pO2 63 L ABG HCO3 26 H 26 H ABG Total CO2 28 H 28 H ABG O2 Saturation 86.2 L ABG Hematocrit ABG Potassium ABG Ionized Calcium ABG Glucose ABG Lactic Acid Hemoglobin Glucose POC Glucose (mg/dL) 138 H ALT Total Protein Albumin Arterial Blood Potassium Arterial Blood Glucose Crossmatch 02/05/18 02/05/18 02/05/18 19:01 20:04 20:30 RBC Hgb Hct Plt Count INR APTT ABG pH ABG pCO2 ABG pO2 ABG HCO3 ABG Total CO2 ABG O2 Saturation ABG Hematocrit ABG Potassium ABG Ionized Calcium ABG Glucose ABG Lactic Acid Hemoglobin Glucose 167 H POC Glucose (mg/dL) 134 H 153 H ALT Total Protein Albumin Arterial Blood Potassium Arterial Blood Glucose Crossmatch 02/05/18 02/05/18 02/05/18 21:03 21:04 22:08 RBC Hgb Hct Plt Count INR APTT ABG pH ABG pCO2 ABG pO2 73 L ABG HCO3 ABG Total CO2 27 H ABG O2 Saturation ABG Hematocrit ABG Potassium ABG Ionized Calcium ABG Glucose ABG Lactic Acid Hemoglobin Glucose POC Glucose (mg/dL) 167 H 171 H ALT Total Protein Albumin Arterial Blood Potassium Arterial Blood Glucose Crossmatch 02/05/18 02/06/18 02/06/18 23:04 00:12 00:59 RBC Hgb Hct Plt Count INR APTT ABG pH ABG pCO2 ABG pO2 ABG HCO3 ABG Total CO2 ABG O2 Saturation ABG Hematocrit ABG Potassium ABG Ionized Calcium ABG Glucose ABG Lactic Acid Hemoglobin Glucose POC Glucose (mg/dL) 169 H 162 H 164 H ALT Total Protein Albumin Arterial Blood Potassium Arterial Blood Glucose Crossmatch 02/06/18 02/06/18 02/06/18 02:01 03:00 04:00 RBC Hgb Hct 38.3 L Plt Count 147 L INR APTT ABG pH ABG pCO2 ABG pO2 ABG HCO3 ABG Total CO2 ABG O2 Saturation ABG Hematocrit ABG Potassium ABG Ionized Calcium ABG Glucose ABG Lactic Acid Hemoglobin Glucose POC Glucose (mg/dL) 150 H 145 H ALT Total Protein Albumin Arterial Blood Potassium Arterial Blood Glucose Crossmatch 02/06/18 02/06/18 02/06/18 04:00 04:02 05:15 RBC Hgb Hct Plt Count INR APTT ABG pH ABG pCO2 ABG pO2 ABG HCO3 ABG Total CO2 ABG O2 Saturation ABG Hematocrit ABG Potassium ABG Ionized Calcium ABG Glucose ABG Lactic Acid Hemoglobin Glucose 143 H POC Glucose (mg/dL) 141 H 129 H ALT Total Protein 5.2 L Albumin 3.4 L Arterial Blood Potassium Arterial Blood Glucose Crossmatch 02/06/18 02/06/18 02/06/18 05:21 06:02 06:59 RBC Hgb Hct Plt Count INR APTT ABG pH ABG pCO2 ABG pO2 129 H ABG HCO3 26 H ABG Total CO2 27 H ABG O2 Saturation 98.3 H ABG Hematocrit ABG Potassium ABG Ionized Calcium ABG Glucose ABG Lactic Acid Hemoglobin Glucose POC Glucose (mg/dL) 120 H 133 H ALT Total Protein Albumin Arterial Blood Potassium Arterial Blood Glucose Crossmatch - Diagnostic Findings Chest x-ray: image reviewed (Labs x-rays a medications are reviewed.) Assessment and Plan Assessment: Assessment Postop day #1, status post three-vessel bypass grafting History of CAD with previous myocardial infarction, 2017 and previous stent placement in the proximal LAD History of diabetes mellitus, type I, with intensive therapy via insulin pump History of hypertension Hyperlipidemia by history History of sleep apnea syndrome Previous history of tobacco use Plan: Plan dated 02/06/2018 We'll transition the patient from propofol to Precedex. The patient will be given IV acetaminophen for temperature control and IV morphine for control of Love's. The patient's Cleviprex was increased for blood pressure control. Additional recommendations and suggestions are forthcoming. Hopefully, we'll be able to wean and extubate this patient this morning. Oxygenation is improved. Labs x-rays and medications are all reviewed. Time with Patient: Greater than 30
[2018-02-06] MEDS: DEXMEDETOMIDINE 400 MCG in SODIUM CHLORIDE 0.9% 100 ML IV SCH (08:39)
[2018-02-06 08:40] LABS: Glucose,Whole Blood 138 mg/dL (75-99)
[2018-02-06 08:40] LABS: ABG Base Excess -0.3 mmol/L; ABG HCO3 26 mmol/L (21-25); ABG Oxygen Saturation 86.9 % (94-97); ABG PCO2 48 mmHg (35-45); ABG PH 7.34 (7.35-7.45); ABG PO2 55 mmHg (83-108); ABG TCO2 27 mmol/L (19-24)
[2018-02-06] MEDS ORDERED: METOPROLOL TARTRATE 12.5 MG TAB PO SCH (09:00)
[2018-02-06] MEDS ORDERED: ALBUMIN HUMAN 5% 500 ML in EMPTY BAG 1 BAG IVPB ONE (09:00)
[2018-02-06 09:56] LABS: Glucose,Whole Blood 118 mg/dL (75-99)
[2018-02-06] MEDS: ALBUMIN HUMAN 5% 250 ML in EMPTY BAG 1 BAG IVPB PRN ×2 (09:58→10:02)
[2018-02-06] MEDS: LACTATED RINGERS 1,000 ML IV SCH (10:07)
[2018-02-06] MEDS: ceFAZolin IN SWFI 2 GM/20 ML SYRINGE IVP SCH (10:25)
[2018-02-06] MEDS: CISATRACURIUM 200 MG in SODIUM CHLORIDE 0.9% 180 ML IV SCH (10:25)
[2018-02-06] MEDS: PANTOPRAZOLE 40 MG/10 ML VIAL IVP SCH (10:26)
[2018-02-06] MEDS: HEPARIN SODIUM,PORCINE 5,000 UNIT/ML 1 ML VIAL SQ SCH ×2 (10:26→16:40)
[2018-02-06] MEDS: CHLORHEXIDINE GLUCONATE 15 ML CUP MUCOUS MEM SCH (10:26)
[2018-02-06] MEDS: ASPIRIN 325 MG TAB PO SCH (10:27)
[2018-02-06] MEDS: CLOPIDOGREL 75 MG TAB PO SCH (10:27)
[2018-02-06] MEDS: MUPIROCIN 2% OINT 22 GM TUBE NASAL SCH ×2 (10:28→23:19)
[2018-02-06] MEDS: ATORVASTATIN 40 MG TAB PO SCH (10:28)
[2018-02-06 11:10] LABS: Glucose,Whole Blood 98 mg/dL (75-99)
[2018-02-06 11:48] LABS: Glucose,Whole Blood 116 mg/dL (75-99)
--- NOTE | 2018-02-06 12:09 | P.PN ---
Subjective Progress Note Date: 02/06/18 Principal diagnosis: Triple-vessel coronary artery disease, status post remote stenting of his left anterior descending coronary artery twice in March 2016, mild left ventricular dysfunction, hypertension, hyperlipidemia, obstructive sleep apnea status post surgical revision and no current CPAP use, insulin-dependent diabetes mellitus managed with home insulin pump, varicose veins and remote history of tobacco dependence quit smoking 30-40 years ago. POD #1 coronary artery bypass grafting 3 using the left internal mammary artery to the left anterior descending coronary artery, left radial artery from the aorta to the second obtuse marginal coronary artery, a reverse greater saphenous vein graft from the aorta to the right coronary artery, endoscopic harvesting of the left radial artery, endoscopic harvesting of the right greater saphenous vein from knee to ankle level, intraoperative transesophageal echocardiogram and epi-aortic scanning, intraoperative graft flow measurement using the [employer] System. The patient currently remains sedated with propofol drip, he remains intubated with mechanical ventilator support. He is not following any verbal commands at this time. He is having episodes of rigors which is being treated accordingly. His is at his bedside and has been updated on his care to the best of my ability. Objective - Vital Signs Vital signs: Vital Signs Temp 99.7 F H 02/06/18 08:00 Pulse 90 02/06/18 11:33 Resp 22 02/06/18 11:00 BP 127/66 02/06/18 07:00 Pulse Ox 100 02/06/18 11:00 Intake & Output 02/05/18 02/06/18 02/06/18 18:59 06:59 18:59 Intake Total 034.338 1663.785 983.211 Output Total 4600 1775 1380 Balance -4143.379 -388.215 -396.789 Weight 117.6 kg Intake: IV 287.0 680 820 Cardiac Output 80 70 Lactated Ringers 1,000 ml 250 600 250 @ 50 mls/hr IV .Q20H [facility] Rx#:[id number] Nitroglycerin-D5w Pmx 50 3.0 mg In Dextrose/Water 1 250ml.bag @ 5 MCG/MIN 1.5 mls/hr IV .Q24H [facility] Rx#: [id number] albumin 500 Intake, IV Titration 169.621 706.785 163.211 Amount Cisatracurium 200 mg In 2.616 141.809 Sodium Chloride 0.9% 180 ml @ 2 MCG/KG/MIN 13.08 mls/hr IV .[id number] [facility] Rx #:[id number] Clevidipine Butyrate 25 50.000 234.200 20.167 mg In Empty Bag 1 bag @ 1 MG/HR 2 mls/hr IV .Q24H [facility] Rx#:[id number] Dexmedetomidine 400 mcg 2.292 In Sodium Chloride 0.9% 100 ml @ Titrate IV .Q0M [facility] Rx#:[id number] Insulin Regular 100 unit 14.005 86.676 40.752 In Sodium Chloride 0.9% 100 ml @ Per Protocol IV .Q0M [facility] Rx#:[id number] Nitroglycerin-D5w Pmx 50 3 44.1 mg In Dextrose/Water 1 250ml.bag @ 5 MCG/MIN 1.5 mls/hr IV .Q24H [facility] Rx#: [id number] Propofol 1,000 mg In 100.0 200 100.000 Empty Bag 1 bag @ Titrate IV .Q0M [facility] Rx#: [id number] Output: Chest Tube Drainage 425 375 215 Chest Tube Mediastinal 270 200 160 Chest Tube Right Lateral 5 55 5 Chest Left Lateral Chest 150 120 50 Drainage 15 15 Left Wrist 5 5 Right Knee 10 10 Urine 2160 1385 1165 Estimated Blood Loss 1999 Other: Voiding Method Indwelling Catheter Indwelling Catheter ABP, PAP, CO, CI - Last Documented Arterial Blood Pressure 123/73 Pulmonary Artery Pressure 45/29 Cardiac Output 5.5 Cardiac Index 2.4 - Constitutional General appearance: Present: no acute distress, obese - EENT Eyes: Present: PERRLA - Respiratory Details: Lung sounds with few scattered rhonchi throughout, 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 He remains intubated with mechanical ventilator support. Respirations are symmetrical and nonlabored with mechanical ventilator support. Current ventilator settings are as follows: Assist control 22, TV 550, FiO2 50%, peep 10. Current blood gas shows pH of 7.3, pCO2 38, pO2 129, HCO3 26, base excess 1.2, oxygen saturation 98.3%. Oxygen saturations are 100% on current ventilator settings. Mediastinal, left and right pleural chest tubes without air leak. Chest tubes remained to low continuous wall suction -20 cm H2O. Draining thin serosanguineous drainage. Left pleural chest tube with 60 mm output in the last 8 hours, 210 mL output in the last 24 hours. Mediastinal chest tube with 100 mL output in the last 8 hours, 380 mL output since surgery. Right pleural chest tube with 5 mL output in the last 8 hours, 55 mL output since surgery. #9 ET tube remained in place secured at 22 cm at the lip. - Cardiovascular Details: Regular rhythm and rate. S1 and S2 present, negative for S3, gallop or murmur. Sternum is stable. Bedside telemetry showing normal sinus rhythm heart rate 98. Heart hugger's in place. Atrial and ventricular epicardial pacemaker wires in place and connected to backup generator. Knee-high SERG hose and sequential compression devices in place to his bilateral lower extremities. Right IJ [place] in place and functioning. Current cardiac output is 5.5, cardiac index is 2.4, PA pressures are 39/29, CVP is 22 mmHg. Left brachial A- line intact and functioning. - Gastrointestinal Gastrointestinal Comment(s): Abdomen is soft, nontender and nondistended. Hypoactive bowel sounds to all 4 abdominal quadrants. OG tube in place evacuating green bile colored drainage. 50 mL output since surgery. - Genitourinary Genitourinary Comment(s): Garcia catheter for accurate I&O. Draining clear yellow urine. 520 mL output in the last 8 hours. - Integumentary Integumentary Comment(s): Skin is warm and dry. No clubbing or cyanosis present. Midline sternal incision clean dry and approximated. No drainage or redness present. Dermabond dressing clean and dry. Left arm left radial arteria harvesting sites clean dry and approximated. No drainage or redness present. Palpable ulnar pulse. Right leg EVH sites clean dry and approximated. No drainage or redness. Left arm JONAS site draining thin serosanguineous drainage, 5 mL output in the last 8 hours, 10 mL output since surgery. Right leg JONAS site draining thin serosanguineous drainage, 10 mL output in the last 8 hours, 20 mL output since surgery. - Neurologic Neurologic Comment(s): Patient remains sedated with propofol drip. - Musculoskeletal Musculoskeletal Comment(s): Having episodes of rigors. Musculoskeletal: Present: generalized weakness - Psychiatric Psychiatric Comment(s): Remains sedated on propofol drip. - Allied health notes Allied health notes reviewed: nursing - Labs CBC & Chem 7: 05/02/18 04:00 02/06/18 04:00 Labs: Abnormal Lab Results - Last 24 Hours (Table) 02/02/18 02/05/18 02/05/18 Range/Units 09:13 11:00 11:49 RBC (4.30-5.90) m/uL Hgb (13.0-17.5) gm/dL Hct (39.0-53.0) % Plt Count (150-450) k/uL INR (<1.2) APTT (22.0-30.0) sec ABG pH (7.35-7.45) ABG pCO2 46 H (35-45) mmHg ABG pO2 259 H 187 H (83-108) mmHg ABG HCO3 26 H 26 H (21-25) mmol/L ABG Total CO2 27 H 27 H (19-24) mmol/L ABG O2 Saturation 99.9 H 99.6 H (94-97) % ABG Hematocrit (34.0-46.0) % ABG Potassium 5.3 H (3.4-4.5) mmol/L ABG Ionized Calcium 4.4 L (4.5-5.3) mg/dL ABG Glucose 159 H 229 H (75-99) mg/dL ABG Lactic Acid (0.5-1.6) mmol/L Hemoglobin 11.1 L (13.0-17.5) gm/dL Glucose (74-99) mg/dL POC Glucose (mg/dL) (75-99) mg/dL ALT (21-72) U/L Total Protein (6.3-8.2) g/dL Albumin (3.5-5.0) g/dL Arterial Blood Potassium 5.3 H (3.4-4.5) mmol/L Arterial Blood Glucose 159 H 229 H (75-99) mg/dL Crossmatch See Detail 02/05/18 02/05/18 02/05/18 Range/Units 12:17 13:02 13:25 RBC (4.30-5.90) m/uL Hgb (13.0-17.5) gm/dL Hct (39.0-53.0) % Plt Count (150-450) k/uL INR (<1.2) APTT (22.0-30.0) sec ABG pH 7.32 L 7.31 L (7.35-7.45) ABG pCO2 48 H 49 H (35-45) mmHg ABG pO2 313 H 229 H (83-108) mmHg ABG HCO3 (21-25) mmol/L ABG Total CO2 26 H 27 H 26 H (19-24) mmol/L ABG O2 Saturation 100.0 H 99.7 H (94-97) % ABG Hematocrit 33 L (34.0-46.0) % ABG Potassium 4.7 H 4.6 H (3.4-4.5) mmol/L ABG Ionized Calcium (4.5-5.3) mg/dL ABG Glucose 216 H 206 H 196 H (75-99) mg/dL ABG Lactic Acid 1.9 H 2.6 H* 2.7 H* (0.5-1.6) mmol/L Hemoglobin 11.4 L 10.8 L 11.1 L (13.0-17.5) gm/dL Glucose (74-99) mg/dL POC Glucose (mg/dL) (75-99) mg/dL ALT (21-72) U/L Total Protein (6.3-8.2) g/dL Albumin (3.5-5.0) g/dL Arterial Blood Potassium 4.7 H 4.6 H (3.4-4.5) mmol/L Arterial Blood Glucose 216 H 206 H 196 H (75-99) mg/dL Crossmatch 02/05/18 02/05/18 02/05/18 Range/Units 14:46 14:46 14:46 RBC 4.18 L (4.30-5.90) m/uL Hgb 11.9 L D (13.0-17.5) gm/dL Hct 36.5 L (39.0-53.0) % Plt Count 113 L (150-450) k/uL INR 1.2 H (<1.2) APTT 30.5 H (22.0-30.0) sec ABG pH (7.35-7.45) ABG pCO2 (35-45) mmHg ABG pO2 (83-108) mmHg ABG HCO3 (21-25) mmol/L ABG Total CO2 (19-24) mmol/L ABG O2 Saturation (94-97) % ABG Hematocrit (34.0-46.0) % ABG Potassium (3.4-4.5) mmol/L ABG Ionized Calcium (4.5-5.3) mg/dL ABG Glucose (75-99) mg/dL ABG Lactic Acid (0.5-1.6) mmol/L Hemoglobin (13.0-17.5) gm/dL Glucose 150 H (74-99) mg/dL POC Glucose (mg/dL) (75-99) mg/dL ALT 16 L (21-72) U/L Total Protein 5.1 L (6.3-8.2) g/dL Albumin 3.4 L (3.5-5.0) g/dL Arterial Blood Potassium (3.4-4.5) mmol/L Arterial Blood Glucose (75-99) mg/dL Crossmatch 02/05/18 02/05/18 02/05/18 Range/Units 14:48 15:02 15:25 RBC (4.30-5.90) m/uL Hgb (13.0-17.5) gm/dL Hct (39.0-53.0) % Plt Count (150-450) k/uL INR (<1.2) APTT (22.0-30.0) sec ABG pH 7.30 L (7.35-7.45) ABG pCO2 52 H (35-45) mmHg ABG pO2 297 H (83-108) mmHg ABG HCO3 26 H (21-25) mmol/L ABG Total CO2 27 H (19-24) mmol/L ABG O2 Saturation 99.7 H (94-97) % ABG Hematocrit (34.0-46.0) % ABG Potassium (3.4-4.5) mmol/L ABG Ionized Calcium (4.5-5.3) mg/dL ABG Glucose (75-99) mg/dL ABG Lactic Acid (0.5-1.6) mmol/L Hemoglobin (13.0-17.5) gm/dL Glucose (74-99) mg/dL POC Glucose (mg/dL) 149 H 145 H (75-99) mg/dL ALT (21-72) U/L Total Protein (6.3-8.2) g/dL Albumin (3.5-5.0) g/dL Arterial Blood Potassium (3.4-4.5) mmol/L Arterial Blood Glucose (75-99) mg/dL Crossmatch 02/05/18 02/05/18 02/05/18 Range/Units 16:42 16:58 18:03 RBC (4.30-5.90) m/uL Hgb (13.0-17.5) gm/dL Hct (39.0-53.0) % Plt Count (150-450) k/uL INR (<1.2) APTT (22.0-30.0) sec ABG pH 7.22 L 7.28 L (7.35-7.45) ABG pCO2 63 H 55 H (35-45) mmHg ABG pO2 63 L (83-108) mmHg ABG HCO3 26 H 26 H (21-25) mmol/L ABG Total CO2 28 H 28 H (19-24) mmol/L ABG O2 Saturation 86.2 L (94-97) % ABG Hematocrit (34.0-46.0) % ABG Potassium (3.4-4.5) mmol/L ABG Ionized Calcium (4.5-5.3) mg/dL ABG Glucose (75-99) mg/dL ABG Lactic Acid (0.5-1.6) mmol/L Hemoglobin (13.0-17.5) gm/dL Glucose (74-99) mg/dL POC Glucose (mg/dL) 127 H (75-99) mg/dL ALT (21-72) U/L Total Protein (6.3-8.2) g/dL Albumin (3.5-5.0) g/dL Arterial Blood Potassium (3.4-4.5) mmol/L Arterial Blood Glucose (75-99) mg/dL Crossmatch 02/05/18 02/05/18 02/05/18 Range/Units 18:09 19:01 20:04 RBC (4.30-5.90) m/uL Hgb (13.0-17.5) gm/dL Hct (39.0-53.0) % Plt Count (150-450) k/uL INR (<1.2) APTT (22.0-30.0) sec ABG pH (7.35-7.45) ABG pCO2 (35-45) mmHg ABG pO2 (83-108) mmHg ABG HCO3 (21-25) mmol/L ABG Total CO2 (19-24) mmol/L ABG O2 Saturation (94-97) % ABG Hematocrit (34.0-46.0) % ABG Potassium (3.4-4.5) mmol/L ABG Ionized Calcium (4.5-5.3) mg/dL ABG Glucose (75-99) mg/dL ABG Lactic Acid (0.5-1.6) mmol/L Hemoglobin (13.0-17.5) gm/dL Glucose (74-99) mg/dL POC Glucose (mg/dL) 138 H 134 H 153 H (75-99) mg/dL ALT (21-72) U/L Total Protein (6.3-8.2) g/dL Albumin (3.5-5.0) g/dL Arterial Blood Potassium (3.4-4.5) mmol/L Arterial Blood Glucose (75-99) mg/dL Crossmatch 02/05/18 02/05/18 02/05/18 Range/Units 20:30 21:03 21:04 RBC (4.30-5.90) m/uL Hgb (13.0-17.5) gm/dL Hct (39.0-53.0) % Plt Count (150-450) k/uL INR (<1.2) APTT (22.0-30.0) sec ABG pH (7.35-7.45) ABG pCO2 (35-45) mmHg ABG pO2 73 L (83-108) mmHg ABG HCO3 (21-25) mmol/L ABG Total CO2 27 H (19-24) mmol/L ABG O2 Saturation (94-97) % ABG Hematocrit (34.0-46.0) % ABG Potassium (3.4-4.5) mmol/L ABG Ionized Calcium (4.5-5.3) mg/dL ABG Glucose (75-99) mg/dL ABG Lactic Acid (0.5-1.6) mmol/L Hemoglobin (13.0-17.5) gm/dL Glucose 167 H (74-99) mg/dL POC Glucose (mg/dL) 167 H (75-99) mg/dL ALT (21-72) U/L Total Protein (6.3-8.2) g/dL Albumin (3.5-5.0) g/dL Arterial Blood Potassium (3.4-4.5) mmol/L Arterial Blood Glucose (75-99) mg/dL Crossmatch 02/05/18 02/05/18 02/06/18 Range/Units 22:08 23:04 00:12 RBC (4.30-5.90) m/uL Hgb (13.0-17.5) gm/dL Hct (39.0-53.0) % Plt Count (150-450) k/uL INR (<1.2) APTT (22.0-30.0) sec ABG pH (7.35-7.45) ABG pCO2 (35-45) mmHg ABG pO2 (83-108) mmHg ABG HCO3 (21-25) mmol/L ABG Total CO2 (19-24) mmol/L ABG O2 Saturation (94-97) % ABG Hematocrit (34.0-46.0) % ABG Potassium (3.4-4.5) mmol/L ABG Ionized Calcium (4.5-5.3) mg/dL ABG Glucose (75-99) mg/dL ABG Lactic Acid (0.5-1.6) mmol/L Hemoglobin (13.0-17.5) gm/dL Glucose (74-99) mg/dL POC Glucose (mg/dL) 171 H 169 H 162 H (75-99) mg/dL ALT (21-72) U/L Total Protein (6.3-8.2) g/dL Albumin (3.5-5.0) g/dL Arterial Blood Potassium (3.4-4.5) mmol/L Arterial Blood Glucose (75-99) mg/dL Crossmatch 02/06/18 02/06/18 02/06/18 Range/Units 00:59 02:01 03:00 RBC (4.30-5.90) m/uL Hgb (13.0-17.5) gm/dL Hct (39.0-53.0) % Plt Count (150-450) k/uL INR (<1.2) APTT (22.0-30.0) sec ABG pH (7.35-7.45) ABG pCO2 (35-45) mmHg ABG pO2 (83-108) mmHg ABG HCO3 (21-25) mmol/L ABG Total CO2 (19-24) mmol/L ABG O2 Saturation (94-97) % ABG Hematocrit (34.0-46.0) % ABG Potassium (3.4-4.5) mmol/L ABG Ionized Calcium (4.5-5.3) mg/dL ABG Glucose (75-99) mg/dL ABG Lactic Acid (0.5-1.6) mmol/L Hemoglobin (13.0-17.5) gm/dL Glucose (74-99) mg/dL POC Glucose (mg/dL) 164 H 150 H 145 H (75-99) mg/dL ALT (21-72) U/L Total Protein (6.3-8.2) g/dL Albumin (3.5-5.0) g/dL Arterial Blood Potassium (3.4-4.5) mmol/L Arterial Blood Glucose (75-99) mg/dL Crossmatch 02/06/18 02/06/18 02/06/18 Range/Units 04:00 04:00 04:02 RBC (4.30-5.90) m/uL Hgb (13.0-17.5) gm/dL Hct 38.3 L (39.0-53.0) % Plt Count 147 L (150-450) k/uL INR (<1.2) APTT (22.0-30.0) sec ABG pH (7.35-7.45) ABG pCO2 (35-45) mmHg ABG pO2 (83-108) mmHg ABG HCO3 (21-25) mmol/L ABG Total CO2 (19-24) mmol/L ABG O2 Saturation (94-97) % ABG Hematocrit (34.0-46.0) % ABG Potassium (3.4-4.5) mmol/L ABG Ionized Calcium (4.5-5.3) mg/dL ABG Glucose (75-99) mg/dL ABG Lactic Acid (0.5-1.6) mmol/L Hemoglobin (13.0-17.5) gm/dL Glucose 143 H (74-99) mg/dL POC Glucose (mg/dL) 141 H (75-99) mg/dL ALT (21-72) U/L Total Protein 5.2 L (6.3-8.2) g/dL Albumin 3.4 L (3.5-5.0) g/dL Arterial Blood Potassium (3.4-4.5) mmol/L Arterial Blood Glucose (75-99) mg/dL Crossmatch 02/06/18 02/06/18 02/06/18 Range/Units 05:15 05:21 06:02 RBC (4.30-5.90) m/uL Hgb (13.0-17.5) gm/dL Hct (39.0-53.0) % Plt Count (150-450) k/uL INR (<1.2) APTT (22.0-30.0) sec ABG pH (7.35-7.45) ABG pCO2 (35-45) mmHg ABG pO2 129 H (83-108) mmHg ABG HCO3 26 H (21-25) mmol/L ABG Total CO2 27 H (19-24) mmol/L ABG O2 Saturation 98.3 H (94-97) % ABG Hematocrit (34.0-46.0) % ABG Potassium (3.4-4.5) mmol/L ABG Ionized Calcium (4.5-5.3) mg/dL ABG Glucose (75-99) mg/dL ABG Lactic Acid (0.5-1.6) mmol/L Hemoglobin (13.0-17.5) gm/dL Glucose (74-99) mg/dL POC Glucose (mg/dL) 129 H 120 H (75-99) mg/dL ALT (21-72) U/L Total Protein (6.3-8.2) g/dL Albumin (3.5-5.0) g/dL Arterial Blood Potassium (3.4-4.5) mmol/L Arterial Blood Glucose (75-99) mg/dL Crossmatch 02/06/18 02/06/18 02/06/18 Range/Units 06:59 08:30 08:38 RBC (4.30-5.90) m/uL Hgb (13.0-17.5) gm/dL Hct (39.0-53.0) % Plt Count (150-450) k/uL INR (<1.2) APTT (22.0-30.0) sec ABG pH 7.34 L (7.35-7.45) ABG pCO2 48 H (35-45) mmHg ABG pO2 55 L (83-108) mmHg ABG HCO3 26 H (21-25) mmol/L ABG Total CO2 27 H (19-24) mmol/L ABG O2 Saturation 86.9 L (94-97) % ABG Hematocrit (34.0-46.0) % ABG Potassium (3.4-4.5) mmol/L ABG Ionized Calcium (4.5-5.3) mg/dL ABG Glucose (75-99) mg/dL ABG Lactic Acid (0.5-1.6) mmol/L Hemoglobin (13.0-17.5) gm/dL Glucose (74-99) mg/dL POC Glucose (mg/dL) 133 H 138 H (75-99) mg/dL ALT (21-72) U/L Total Protein (6.3-8.2) g/dL Albumin (3.5-5.0) g/dL Arterial Blood Potassium (3.4-4.5) mmol/L Arterial Blood Glucose (75-99) mg/dL Crossmatch 02/06/18 Range/Units 09:54 RBC (4.30-5.90) m/uL Hgb (13.0-17.5) gm/dL Hct (39.0-53.0) % Plt Count (150-450) k/uL INR (<1.2) APTT (22.0-30.0) sec ABG pH (7.35-7.45) ABG pCO2 (35-45) mmHg ABG pO2 (83-108) mmHg ABG HCO3 (21-25) mmol/L ABG Total CO2 (19-24) mmol/L ABG O2 Saturation (94-97) % ABG Hematocrit (34.0-46.0) % ABG Potassium (3.4-4.5) mmol/L ABG Ionized Calcium (4.5-5.3) mg/dL ABG Glucose (75-99) mg/dL ABG Lactic Acid (0.5-1.6) mmol/L Hemoglobin (13.0-17.5) gm/dL Glucose (74-99) mg/dL POC Glucose (mg/dL) 118 H (75-99) mg/dL ALT (21-72) U/L Total Protein (6.3-8.2) g/dL Albumin (3.5-5.0) g/dL Arterial Blood Potassium (3.4-4.5) mmol/L Arterial Blood Glucose (75-99) mg/dL Crossmatch - Imaging and Cardiology Chest x-ray: report reviewed, image reviewed Assessment and Plan (1) History of obstructive sleep apnea Current Visit: No Status: Acute Code(s): Z86.69 - PERSONAL HISTORY OF DIS OF THE NERVOUS SYS AND SENSE ORGANS SNOMED Code(s): 733439072 (2) Coronary artery disease Current Visit: No Status: Chronic Code(s): I25.10 - ATHSCL HEART DISEASE OF [place] CORONARY ARTERY W/O ANG PCTRS SNOMED Code(s): 63643868 (3) Family history of premature coronary artery disease Current Visit: No Status: Chronic Code(s): Z82.49 - FAMILY HX OF ISCHEM HEART DIS AND OTH DIS OF THE CIRC SYS SNOMED Code(s): 616387077 (4) History of coronary artery stent placement Current Visit: No Status: Chronic Code(s): Z95.5 - PRESENCE OF CORONARY ANGIOPLASTY IMPLANT AND GRAFT SNOMED Code(s): 796517596 (5) Hyperlipidemia Current Visit: No Status: Chronic Code(s): E78.5 - HYPERLIPIDEMIA, UNSPECIFIED SNOMED Code(s): 52190580 (6) Hypertension Current Visit: No Status: Chronic Code(s): I10 - ESSENTIAL (PRIMARY) HYPERTENSION SNOMED Code(s): 36229769 (7) Insulin dependent diabetes mellitus Current Visit: No Status: Chronic Code(s): E11.9 - TYPE 2 DIABETES MELLITUS WITHOUT COMPLICATIONS; Z79.4 - ALF (CURRENT) USE OF INSULIN SNOMED Code( s): 46847707 (8) Obesity (BMI 30-39.9) Current Visit: No Status: Chronic Code(s): E66.9 - OBESITY, UNSPECIFIED SNOMED Code(s): 038149116 (9) History of myocardial infarction Current Visit: No Status: Resolved Code(s): I25.2 - OLD MYOCARDIAL INFARCTION SNOMED Code(s): 712257804 (10) Tobacco dependence in remission Current Visit: No Status: Resolved Code(s): F17.201 - NICOTINE DEPENDENCE, UNSPECIFIED, IN REMISSION SNOMED Code(s): 914775675 Plan: 1. Continue aspirin, statin, subcu heparin, and beta lauri. We will increase his metoprolol tartrate 25 mg per NG tube twice a day. 2. Pulmonary and ventilator management per Dr. Dorado. Wean to extubate when appropriate. 3. His propofol drip will be discontinued and he will be transitioned to Precedex. 4. GI and DVT prophylaxis. 5. Once extubated increase activity as tolerated, physical, occupational therapy and cardiac rehab consulted. 6. Lasix 20 mg IV 1 now. 7. Decrease PEEP to 5. 8. Blood sugar management per primary care service. 9. Will monitor daily labs and chest x-rays. 10. More recommendations to follow based on the patient's clinical course. Time with Patient: Greater than 30
[2018-02-06 13:16] LABS: Glucose,Whole Blood 123 mg/dL (75-99)
[2018-02-06] MEDS ORDERED: BISACODYL 10 MG SUPP RECTAL PRN (13:51)
[2018-02-06] MEDS ORDERED: IPRATROPIUM-ALBUTEROL 3 ML NEB INHALATION PRN (13:52)
[2018-02-06] MEDS: HYDROcodone/APAP 5-325MG 1 EACH TAB PO PRN (14:16)
[2018-02-06 14:24] LABS: Glucose,Whole Blood 154 mg/dL (75-99)
[2018-02-06] MEDS: NITROGLYCERIN-D5W PMX 50 MG in DEXTROSE/WATER 1 250ML.BAG IV SCH (14:26)
[2018-02-06] MEDS ORDERED: fentaNYL (PF) 50 MCG/ML 2 ML AMP IV STA (14:50)
[2018-02-06 15:11] LABS: Glucose,Whole Blood 190 mg/dL (75-99)
[2018-02-06 16:45] LABS: Glucose,Whole Blood 166 mg/dL (75-99)
[2018-02-06 17:17] LABS: Glucose,Whole Blood 125 mg/dL (75-99)
[2018-02-06 19:10] LABS: Glucose,Whole Blood 132 mg/dL (75-99)
--- NOTE | 2018-02-06 19:12 | CONS ---
CONSULTATION Mr. Fermin is a 67-year-old gentleman who is seen for postop cardiac evaluation. This patient's medical records reviewed. The patient has a known history of triple-vessel coronary artery disease with remote stenting of the LAD x2 and mildly impaired left ventricular systolic function. The patient has a history of hypertension, hyperlipidemia, and sleep apnea as well as diabetes. The patient underwent coronary artery bypass surgery done times three yesterday with the TRIMBLE graft to the LAD and left radial artery from aorta to the 2nd obtuse marginal branch and saphenous vein graft to the right coronary artery. The patient at present remains sedated. It was a difficult time to extubate the patient and patient currently is getting drip. After the sedation, the patient's vital signs remains stable. PHYSICAL EXAMINATION: VITAL SIGNS: Blood pressure is 127/67. Oxygen saturation is 100%. HEENT examination is negative. NECK: Supple. Heart: First and second heart sounds are normal. No significant murmurs are noted. Lungs examination reveals bilateral scattered wheezes with diminished air entry at the bases. ABDOMEN: Soft. EXTREMITIES: There is no evidence of any leg edema. LABORATORY DATA: Arterial blood gases shows a pH of 7.3, pCO2 is 32, PO2 is 129. Chest x-ray does not show any significant fluid overload. This patient blood sugars are running fairly good. Hemoglobin is 13 g, arterial blood gases today shows pH 7.34 pCO2 is 48 and PO2 is 55, creatinine is 0.8. ASSESSMENT: Patient is status post coronary artery bypass surgery. Remains stable. Patient is still currently intubated and it is difficult to extubate him. Continue the current treatment. MMODL / IJN: [id number] /
[2018-02-06 19:49] LABS: Glucose,Whole Blood 107 mg/dL (75-99)
--- NOTE | 2018-02-06 19:58 | P.CONS ---
History of Present Illness - Reason for Consult Consult date: 02/06/18 Medical management - Chief Complaint s/p cabg - History of Present Illness 67-year-old male who underwent CABG 3 on 02/05/[address] Miles was consulted for medical management. The patient has a history of COPD, coronary artery disease with 4 stents, diabetes mellitus utilizing insulin pump, hyperlipidemia, hypertension, myocardial infarction, and sleep apnea. He does not utilize a CPAP machine. He is a former cigarette smoker and quit smoking in 1984. Patient smoked 2 packs per day. The patient was seen and examined in the intensive care unit this morning by Dr. Miles. The patient remains sedated and intubated. Patient remains on insulin drip. Blood sugars are well controlled and ranging from 118-138. Review of Systems Unable to obtain secondary to mechanical ventilation and sedation Past Medical History Past Medical History: Coronary Artery Disease (CAD), COPD, Diabetes Mellitus, Hyperlipidemia, Hypertension, Myocardial Infarction ([place]), Sleep Apnea/CPAP/BIPAP Additional Past Medical History / Comment(s): NO CPAP MACHINE, ARTHRITIS KNEES, VARICOSE VEINS, SOB WITH WALKING, INSULIN PUMP. Last Myocardial Infarction Date:: 12/18/16 History of Any Multi-Drug Resistant Organisms: None Reported Past Surgical History: Appendectomy, Heart Catheterization With Stent, Hernia Repair, Tonsillectomy Additional Past Surgical History / Comment(s): 4 HEART STENTS (2015 @ [facility] & 2017 @ [place]), surgery for sleep apnea, INGUINAL HERNIA Past Anesthesia/Blood Transfusion Reactions: No Reported Reaction Date of Last Stent Placement:: 12/18/16 Past Psychological History: No Psychological Hx Reported Smoking Status: Former smoker Past Alcohol Use History: Rare Additional Past Alcohol Use History / Comment(s): STARTED SMOKING AT AGE 16 QUIT IN 1984 SMOKED 2PPD Past Drug Use History: None Reported - Past Family History Mother Family Medical History: Osteoarthritis (OA) Additional Family Medical History / Comment(s): . Father Family Medical History: Coronary Artery Disease (CAD), Myocardial Infarction (AK ) Additional Family Medical History / Comment(s): HAD QUAD [place] . AT AGE 60 FROM [place] Medications and Allergies Home Medications Medication Instructions Recorded Confirmed Type Metoprolol Tartrate [Lopressor] 50 mg PO DAILY 02/02/16 02/05/18 History Atorvastatin [Lipitor] 80 mg PO HS #90 tab 03/30/16 02/05/18 Rx Nitroglycerin Sl Tabs [Nitrostat] 0.4 mg SUBLINGUAL Q5M PRN #25 tab 03/30/1610/25 Rx Aspirin [Adult Low Dose Aspirin EC] 81 mg PO DAILY 01/24/18 02/05/18 History Isosorbide Mononitrate [Isosorbide 30 mg PO DAILY 01/24/18 02/05/18 History Mononitrate ER] Levothyroxine Sodium [Synthroid] 50 mcg PO HS 01/24/18 02/05/18 History Clopidogrel [Plavix] 75 mg PO DAILY 02/04/18 02/05/18 History Enalapril [Vasotec] 20 mg PO DAILY 02/04/18 02/05/18 History Mupirocin 2% Nasal Oint [Bactroban 1 applic NASAL BID 02/04/18 02/05/18 History 2% Nasal Oint] INSULIN LISPRO (For Pump) [humaLOG 0.01 units SQ-PUMP CONTINUOUS 02/05/18 History (For Pump)] Allergies Allergy/AdvReac Type Severity Reaction Status Date / Time No Known Allergies Allergy Verified 02/05/18 14:28 Physical Exam Vitals: Vital Signs Temp Pulse Pulse Resp BP Pulse Ox 02/06/18 11:33 90 02/06/18 11:21 91 02/06/18 11:00 96 22 100 02/06/18 10:45 90 16 100 02/06/18 10:30 92 21 100 02/06/18 10:15 92 23 100 02/06/18 10:00 95 22 100 02/06/18 09:45 96 14 97 02/06/18 09:30 96 13 100 02/06/18 09:15 100 17 91 L 02/06/18 09:00 104 H 19 95 02/06/18 08:45 135 H 24 89 L 02/06/18 08:30 128 H 25 H 02/06/18 08:00 99.7 F H 110 H 14 95 02/06/18 07:45 101 H 02/06/18 07:17 100 02/06/18 07:00 98.8 F 96 95 22 127/66 100 02/06/18 06:30 100 22 99 02/06/18 06:00 99.3 F 98 98 22 106/58 97 05/02/18 05:30 101 H 22 100 05//18 05:00 99.5 F 99 98 22 136/68 100 05/0218 04:30 95 22 100 05/18 04:00 99.1 F 94 94 22 120/66 99 05/02/18 03:31 90 05/18 03:30 90 22 98 05/02/18 03:10 92 05 03:00 99 F 93 92 22 116/62 97 05/02/18 02:30 93 22 97 05//18 02:00 99.3 F 94 93 22 123/61 99 05/02/18 01:30 89 22 99 05/0218 01:00 99.5 F 83 94 22 134/56 98 05/02/18 00:30 86 22 97 02/06/18 00:00 87 22 98 02/05/18 23:34 93 02/05/18 23:30 94 22 98 02/05/18 23:16 96 02/05/18 23:00 88 22 97 02/05/18 22:30 85 22 97 02/05/18 22:00 86 22 95 02/05/18 21:30 88 22 95 02/05/18 21:00 104 H 24 96 02/05/18 20:30 97 22 94 L 02/05/18 20:02 98 02/05/18 20:00 105 H 22 94 L 02/05/18 19:52 109 H 02/05/18 19:30 101 H 22 94 L 02/05/18 19:00 101 H 22 95 02/05/18 18:30 99 16 99 02/05/18 18:00 104 H 16 99 02/05/18 17:45 116 H 16 99 02/05/18 17:30 118 H 16 97 05 17:15 117 H 16 93 L 02/05/18 17:00 117 H 16 88 L 02/05/18 16:45 108 H 93 L 02/05/18 16:30 106 H 22 100 02/05/18 16:15 103 H 20 99 02/05/18 16:00 103 H 18 99 02/05/18 15:45 100 18 97 02/05/18 15:30 94 16 97 02/05/18 15:15 85 15 100 02/05/18 15:00 79 14 100 02/05/18 14:45 78 14 100 Intake and Output 02/05/18 02/06/18 02/06/18 22:59 06:59 14:59 Intake Total 819.355 938.484 983.211 Output Total 2540 700 1380 Balance -1720.645 238.484 -396.789 Intake: IV 421.5 460 820 Cardiac Output 20 60 70 Lactated Ringers 1,000 ml 400 400 250 @ 50 mls/hr IV .Q20H [facility] Rx#:[id number] Nitroglycerin-D5w Pmx 50 1.5 mg In Dextrose/Water 1 250ml.bag @ 5 MCG/MIN 1.5 mls/hr IV .Q24H [facility] Rx#: [id number] albumin 500 Intake, IV Titration 397.855 478.484 163.211 Amount Cisatracurium 200 mg In 23.871 120.554 Sodium Chloride 0.9% 180 ml @ 2 MCG/KG/MIN 13.08 mls/hr IV .[id number] [facility] Rx #:[id number] Clevidipine Butyrate 25 200.000 84.200 20.167 mg In Empty Bag 1 bag @ 1 MG/HR 2 mls/hr IV .Q24H [facility] Rx#:[id number] Dexmedetomidine 400 mcg 2.292 In Sodium Chloride 0.9% 100 ml @ Titrate IV .Q0M [facility] Rx#:[id number] Insulin Regular 100 unit 32.584 68.030 40.752 In Sodium Chloride 0.9% 100 ml @ Per Protocol IV .Q0M [facility] Rx#:[id number] Nitroglycerin-D5w Pmx 50 41.4 5.7 mg In Dextrose/Water 1 250ml.bag @ 5 MCG/MIN 1.5 mls/hr IV .Q24H [facility] Rx#: [id number] Propofol 1,000 mg In 100.0 200 100.000 Empty Bag 1 bag @ Titrate IV .Q0M [facility] Rx#: [id number] Output: Chest Tube Drainage 535 165 215 Chest Tube Mediastinal 330 100 160 Chest Tube Right Lateral 55 5 5 Chest Left Lateral Chest 150 60 50 Drainage 15 15 Left Wrist 5 5 Right Knee 10 10 Urine 3222 365 1644 Other: Voiding Method Indwelling Catheter Indwelling Catheter Weight 117.6 kg ABP, PAP, CO, CI - Last 8 Hours Arterial Blood Pressure 123/73 Arterial Blood Pressure 107/70 Arterial Blood Pressure 110/72 Arterial Blood Pressure 109/70 Arterial Blood Pressure 109/71 Arterial Blood Pressure 101/67 Arterial Blood Pressure 90/58 Arterial Blood Pressure 85/57 Arterial Blood Pressure 87/54 Arterial Blood Pressure 129/63 Arterial Blood Pressure 149/71 Arterial Blood Pressure 125/71 Arterial Blood Pressure 111/65 Arterial Blood Pressure 112/64 Arterial Blood Pressure 105/60 Arterial Blood Pressure 134/68 Arterial Blood Pressure 118/67 Arterial Blood Pressure 125/68 Arterial Blood Pressure 117/64 Pulmonary Artery Pressure 45/29 Pulmonary Artery Pressure 41/32 Pulmonary Artery Pressure 40/32 Pulmonary Artery Pressure 40/31 Pulmonary Artery Pressure 40/32 Pulmonary Artery Pressure 39/31 Pulmonary Artery Pressure 34/26 Pulmonary Artery Pressure 33/25 Pulmonary Artery Pressure 22/16 Pulmonary Artery Pressure 42/7 Pulmonary Artery Pressure 42/21 Pulmonary Artery Pressure 38/25 Pulmonary Artery Pressure 30/20 Pulmonary Artery Pressure 29/21 Pulmonary Artery Pressure 29/21 Pulmonary Artery Pressure 29/19 Pulmonary Artery Pressure 30/21 Pulmonary Artery Pressure 30/21 Pulmonary Artery Pressure 30/20 Cardiac Output 5.5 Cardiac Output 5.5 Cardiac Output 5.5 Cardiac Output 5.5 Cardiac Output 5.5 Cardiac Output 5.5 Cardiac Output 5 Cardiac Output 5 Cardiac Output 5 Cardiac Output 5 Cardiac Output 5 Cardiac Output 5 Cardiac Output 4.4 Cardiac Output 5.2 Cardiac Output 5.2 Cardiac Output 5.2 Cardiac Output 5.2 Cardiac Output 5.2 Cardiac Output 5.2 Cardiac Index 2.4 Cardiac Index 2.2 Cardiac Index 1.9 Cardiac Index 2.3 GENERAL: This is a 67-year-old male who remains in the intensive care unit on mechanical ventilation. HEENT: ET tube noted. Head is atraumatic, normocephalic. Pupils are equal, round, and reactive to light. Sclerae anicteric. Conjunctivae are clear. Mucus membranes of the mouth are moist. Neck is supple. RESPIRATORY: Coarse with scattered rhonchi bilaterally. No wheezing or rales noted. Patient maintaining oxygen saturation greater than 92% on mechanical ventilation. CARDIOVASCULAR: Mediastinal and pleural chest tubes noted. Dressing to chest clean dry and intact. Regular rate and rhythm. S1 and S2 noted. No systolic or diastolic murmur auscultated. No JVD noted. No S3 or S4 noted. GASTROINTESTINAL: NG tube noted to LIS. No distention noted. Abdomen soft and round. Hypoactive bowel sounds auscultated x 4 quadrants. INTEGUMENTARY: Dressing to chest clean dry and intact. No cyanosis. No jaundice. No rashes noted. No cellulitis noted. EXTREMITIES: 2+ peripheral pulses. Trace bilateral lower extremity edema. No calf tenderness noted. NEUROLOGIC: Unable to thoroughly assess secondary to mechanical ventilation and sedation PSYCHIATRIC: Unable to thoroughly assess secondary to mechanical ventilation and sedation Results CBC & Chem 7: 02/06/18 04:00 02/06/18 04:00 Labs: Abnormal Lab Results - Last 24 Hours (Table) 02/02/18 02/05/18 02/05/18 Range/Units 09:13 11:00 11:49 RBC (4.30-5.90) m/uL Hgb (13.0-17.5) gm/dL Hct (39.0-53.0) % Plt Count (150-450) k/uL INR (<1.2) APTT (22.0-30.0) sec ABG pH (7.35-7.45) ABG pCO2 46 H (35-45) mmHg ABG pO2 259 H 187 H (83-108) mmHg ABG HCO3 26 H 26 H (21-25) mmol/L ABG Total CO2 27 H 27 H (19-24) mmol/L ABG O2 Saturation 99.9 H 99.6 H (94-97) % ABG Hematocrit (34.0-46.0) % ABG Potassium 5.3 H (3.4-4.5) mmol/L ABG Ionized Calcium 4.4 L (4.5-5.3) mg/dL ABG Glucose 159 H 229 H (75-99) mg/dL ABG Lactic Acid (0.5-1.6) mmol/L Hemoglobin 11.1 L (13.0-17.5) gm/dL Glucose (74-99) mg/dL POC Glucose (mg/dL) (75-99) mg/dL ALT (21-72) U/L Total Protein (6.3-8.2) g/dL Albumin (3.5-5.0) g/dL Arterial Blood Potassium 5.3 H (3.4-4.5) mmol/L Arterial Blood Glucose 159 H 229 H (75-99) mg/dL Crossmatch See Detail 02/05/18 02/05/18 02/05/18 Range/Units 12:17 13:02 13:25 RBC (4.30-5.90) m/uL Hgb (13.0-17.5) gm/dL Hct (39.0-53.0) % Plt Count (150-450) k/uL INR (<1.2) APTT (22.0-30.0) sec ABG pH 7.32 L 7.31 L (7.35-7.45) ABG pCO2 48 H 49 H (35-45) mmHg ABG pO2 313 H 229 H (83-108) mmHg ABG HCO3 (21-25) mmol/L ABG Total CO2 26 H 27 H 26 H (19-24) mmol/L ABG O2 Saturation 100.0 H 99.7 H (94-97) % ABG Hematocrit 33 L (34.0-46.0) % ABG Potassium 4.7 H 4.6 H (3.4-4.5) mmol/L ABG Ionized Calcium (4.5-5.3) mg/dL ABG Glucose 216 H 206 H 196 H (75-99) mg/dL ABG Lactic Acid 1.9 H 2.6 H* 2.7 H* (0.5-1.6) mmol/L Hemoglobin 11.4 L 10.8 L 11.1 L (13.0-17.5) gm/dL Glucose (74-99) mg/dL POC Glucose (mg/dL) (75-99) mg/dL ALT (21-72) U/L Total Protein (6.3-8.2) g/dL Albumin (3.5-5.0) g/dL Arterial Blood Potassium 4.7 H 4.6 H (3.4-4.5) mmol/L Arterial Blood Glucose 216 H 206 H 196 H (75-99) mg/dL Crossmatch 02/05/18 02/05/18 02/05/18 Range/Units 14:46 14:46 14:46 RBC 4.18 L (4.30-5.90) m/uL Hgb 11.9 L D (13.0-17.5) gm/dL Hct 36.5 L (39.0-53.0) % Plt Count 113 L (150-450) k/uL INR 1.2 H (<1.2) APTT 30.5 H (22.0-30.0) sec ABG pH (7.35-7.45) ABG pCO2 (35-45) mmHg ABG pO2 (83-108) mmHg ABG HCO3 (21-25) mmol/L ABG Total CO2 (19-24) mmol/L ABG O2 Saturation (94-97) % ABG Hematocrit (34.0-46.0) % ABG Potassium (3.4-4.5) mmol/L ABG Ionized Calcium (4.5-5.3) mg/dL ABG Glucose (75-99) mg/dL ABG Lactic Acid (0.5-1.6) mmol/L Hemoglobin (13.0-17.5) gm/dL Glucose 150 H (74-99) mg/dL POC Glucose (mg/dL) (75-99) mg/dL ALT 16 L (21-72) U/L Total Protein 5.1 L (6.3-8.2) g/dL Albumin 3.4 L (3.5-5.0) g/dL Arterial Blood Potassium (3.4-4.5) mmol/L Arterial Blood Glucose (75-99) mg/dL Crossmatch 02/05/18 02/05/18 02/05/18 Range/Units 14:48 15:02 15:25 RBC (4.30-5.90) m/uL Hgb (13.0-17.5) gm/dL Hct (39.0-53.0) % Plt Count (150-450) k/uL INR (<1.2) APTT (22.0-30.0) sec ABG pH 7.30 L (7.35-7.45) ABG pCO2 52 H (35-45) mmHg ABG pO2 297 H (83-108) mmHg ABG HCO3 26 H (21-25) mmol/L ABG Total CO2 27 H (19-24) mmol/L ABG O2 Saturation 99.7 H (94-97) % ABG Hematocrit (34.0-46.0) % ABG Potassium (3.4-4.5) mmol/L ABG Ionized Calcium (4.5-5.3) mg/dL ABG Glucose (75-99) mg/dL ABG Lactic Acid (0.5-1.6) mmol/L Hemoglobin (13.0-17.5) gm/dL Glucose (74-99) mg/dL POC Glucose (mg/dL) 149 H 145 H (75-99) mg/dL ALT (21-72) U/L Total Protein (6.3-8.2) g/dL Albumin (3.5-5.0) g/dL Arterial Blood Potassium (3.4-4.5) mmol/L Arterial Blood Glucose (75-99) mg/dL Crossmatch 02/05/18 02/05/18 02/05/18 Range/Units 16:42 16:58 18:03 RBC (4.30-5.90) m/uL Hgb (13.0-17.5) gm/dL Hct (39.0-53.0) % Plt Count (150-450) k/uL INR (<1.2) APTT (22.0-30.0) sec ABG pH 7.22 L 7.28 L (7.35-7.45) ABG pCO2 63 H 55 H (35-45) mmHg ABG pO2 63 L (83-108) mmHg ABG HCO3 26 H 26 H (21-25) mmol/L ABG Total CO2 28 H 28 H (19-24) mmol/L ABG O2 Saturation 86.2 L (94-97) % ABG Hematocrit (34.0-46.0) % ABG Potassium (3.4-4.5) mmol/L ABG Ionized Calcium (4.5-5.3) mg/dL ABG Glucose (75-99) mg/dL ABG Lactic Acid (0.5-1.6) mmol/L Hemoglobin (13.0-17.5) gm/dL Glucose (74-99) mg/dL POC Glucose (mg/dL) 127 H (75-99) mg/dL ALT (21-72) U/L Total Protein (6.3-8.2) g/dL Albumin (3.5-5.0) g/dL Arterial Blood Potassium (3.4-4.5) mmol/L Arterial Blood Glucose (75-99) mg/dL Crossmatch 02/05/18 02/05/18 02/05/18 Range/Units 18:09 19:01 20:04 RBC (4.30-5.90) m/uL Hgb (13.0-17.5) gm/dL Hct (39.0-53.0) % Plt Count (150-450) k/uL INR (<1.2) APTT (22.0-30.0) sec ABG pH (7.35-7.45) ABG pCO2 (35-45) mmHg ABG pO2 (83-108) mmHg ABG HCO3 (21-25) mmol/L ABG Total CO2 (19-24) mmol/L ABG O2 Saturation (94-97) % ABG Hematocrit (34.0-46.0) % ABG Potassium (3.4-4.5) mmol/L ABG Ionized Calcium (4.5-5.3) mg/dL ABG Glucose (75-99) mg/dL ABG Lactic Acid (0.5-1.6) mmol/L Hemoglobin (13.0-17.5) gm/dL Glucose (74-99) mg/dL POC Glucose (mg/dL) 138 H 134 H 153 H (75-99) mg/dL ALT (21-72) U/L Total Protein (6.3-8.2) g/dL Albumin (3.5-5.0) g/dL Arterial Blood Potassium (3.4-4.5) mmol/L Arterial Blood Glucose (75-99) mg/dL Crossmatch 02/05/18 02/05/18 02/05/18 Range/Units 20:30 21:03 21:04 RBC (4.30-5.90) m/uL Hgb (13.0-17.5) gm/dL Hct (39.0-53.0) % Plt Count (150-450) k/uL INR (<1.2) APTT (22.0-30.0) sec ABG pH (7.35-7.45) ABG pCO2 (35-45) mmHg ABG pO2 73 L (83-108) mmHg ABG HCO3 (21-25) mmol/L ABG Total CO2 27 H (19-24) mmol/L ABG O2 Saturation (94-97) % ABG Hematocrit (34.0-46.0) % ABG Potassium (3.4-4.5) mmol/L ABG Ionized Calcium (4.5-5.3) mg/dL ABG Glucose (75-99) mg/dL ABG Lactic Acid (0.5-1.6) mmol/L Hemoglobin (13.0-17.5) gm/dL Glucose 167 H (74-99) mg/dL POC Glucose (mg/dL) 167 H (75-99) mg/dL ALT (21-72) U/L Total Protein (6.3-8.2) g/dL Albumin (3.5-5.0) g/dL Arterial Blood Potassium (3.4-4.5) mmol/L Arterial Blood Glucose (75-99) mg/dL Crossmatch 02/05/18 02/05/18 02/06/18 Range/Units 22:08 23:04 00:12 RBC (4.30-5.90) m/uL Hgb (13.0-17.5) gm/dL Hct (39.0-53.0) % Plt Count (150-450) k/uL INR (<1.2) APTT (22.0-30.0) sec ABG pH (7.35-7.45) ABG pCO2 (35-45) mmHg ABG pO2 (83-108) mmHg ABG HCO3 (21-25) mmol/L ABG Total CO2 (19-24) mmol/L ABG O2 Saturation (94-97) % ABG Hematocrit (34.0-46.0) % ABG Potassium (3.4-4.5) mmol/L ABG Ionized Calcium (4.5-5.3) mg/dL ABG Glucose (75-99) mg/dL ABG Lactic Acid (0.5-1.6) mmol/L Hemoglobin (13.0-17.5) gm/dL Glucose (74-99) mg/dL POC Glucose (mg/dL) 171 H 169 H 162 H (75-99) mg/dL ALT (21-72) U/L Total Protein (6.3-8.2) g/dL Albumin (3.5-5.0) g/dL Arterial Blood Potassium (3.4-4.5) mmol/L Arterial Blood Glucose (75-99) mg/dL Crossmatch 02/06/18 02/06/18 02/06/18 Range/Units 00:59 02:01 03:00 RBC (4.30-5.90) m/uL Hgb (13.0-17.5) gm/dL Hct (39.0-53.0) % Plt Count (150-450) k/uL INR (<1.2) APTT (22.0-30.0) sec ABG pH (7.35-7.45) ABG pCO2 (35-45) mmHg ABG pO2 (83-108) mmHg ABG HCO3 (21-25) mmol/L ABG Total CO2 (19-24) mmol/L ABG O2 Saturation (94-97) % ABG Hematocrit (34.0-46.0) % ABG Potassium (3.4-4.5) mmol/L ABG Ionized Calcium (4.5-5.3) mg/dL ABG Glucose (75-99) mg/dL ABG Lactic Acid (0.5-1.6) mmol/L Hemoglobin (13.0-17.5) gm/dL Glucose (74-99) mg/dL POC Glucose (mg/dL) 164 H 150 H 145 H (75-99) mg/dL ALT (21-72) U/L Total Protein (6.3-8.2) g/dL Albumin (3.5-5.0) g/dL Arterial Blood Potassium (3.4-4.5) mmol/L Arterial Blood Glucose (75-99) mg/dL Crossmatch 02/06/18 02/06/18 02/06/18 Range/Units 04:00 04:00 04:02 RBC (4.30-5.90) m/uL Hgb (13.0-17.5) gm/dL Hct 38.3 L (39.0-53.0) % Plt Count 147 L (150-450) k/uL INR (<1.2) APTT (22.0-30.0) sec ABG pH (7.35-7.45) ABG pCO2 (35-45) mmHg ABG pO2 (83-108) mmHg ABG HCO3 (21-25) mmol/L ABG Total CO2 (19-24) mmol/L ABG O2 Saturation (94-97) % ABG Hematocrit (34.0-46.0) % ABG Potassium (3.4-4.5) mmol/L ABG Ionized Calcium (4.5-5.3) mg/dL ABG Glucose (75-99) mg/dL ABG Lactic Acid (0.5-1.6) mmol/L Hemoglobin (13.0-17.5) gm/dL Glucose 143 H (74-99) mg/dL POC Glucose (mg/dL) 141 H (75-99) mg/dL ALT (21-72) U/L Total Protein 5.2 L (6.3-8.2) g/dL Albumin 3.4 L (3.5-5.0) g/dL Arterial Blood Potassium (3.4-4.5) mmol/L Arterial Blood Glucose (75-99) mg/dL Crossmatch 02/06/1818 02/06/18 Range/Units 05:15 05:21 06:02 RBC (4.30-5.90) m/uL Hgb (13.0-17.5) gm/dL Hct (39.0-53.0) % Plt Count (150-450) k/uL INR (<1.2) APTT (22.0-30.0) sec ABG pH (7.35-7.45) ABG pCO2 (35-45) mmHg ABG pO2 129 H (83-108) mmHg ABG HCO3 26 H (21-25) mmol/L ABG Total CO2 27 H (19-24) mmol/L ABG O2 Saturation 98.3 H (94-97) % ABG Hematocrit (34.0-46.0) % ABG Potassium (3.4-4.5) mmol/L ABG Ionized Calcium (4.5-5.3) mg/dL ABG Glucose (75-99) mg/dL ABG Lactic Acid (0.5-1.6) mmol/L Hemoglobin (13.0-17.5) gm/dL Glucose (74-99) mg/dL POC Glucose (mg/dL) 129 H 120 H (75-99) mg/dL ALT (21-72) U/L Total Protein (6.3-8.2) g/dL Albumin (3.5-5.0) g/dL Arterial Blood Potassium (3.4-4.5) mmol/L Arterial Blood Glucose (75-99) mg/dL Crossmatch 02/06/18 02/06/18 02/06/18 Range/Units 06:59 08:30 08:38 RBC (4.30-5.90) m/uL Hgb (13.0-17.5) gm/dL Hct (39.0-53.0) % Plt Count (150-450) k/uL INR (<1.2) APTT (22.0-30.0) sec ABG pH 7.34 L (7.35-7.45) ABG pCO2 48 H (35-45) mmHg ABG pO2 55 L (83-108) mmHg ABG HCO3 26 H (21-25) mmol/L ABG Total CO2 27 H (19-24) mmol/L ABG O2 Saturation 86.9 L (94-97) % ABG Hematocrit (34.0-46.0) % ABG Potassium (3.4-4.5) mmol/L ABG Ionized Calcium (4.5-5.3) mg/dL ABG Glucose (75-99) mg/dL ABG Lactic Acid (0.5-1.6) mmol/L Hemoglobin (13.0-17.5) gm/dL Glucose (74-99) mg/dL POC Glucose (mg/dL) 133 H 138 H (75-99) mg/dL ALT (21-72) U/L Total Protein (6.3-8.2) g/dL Albumin (3.5-5.0) g/dL Arterial Blood Potassium (3.4-4.5) mmol/L Arterial Blood Glucose (75-99) mg/dL Crossmatch 02/06/18 Range/Units 09:54 RBC (4.30-5.90) m/uL Hgb (13.0-17.5) gm/dL Hct (39.0-53.0) % Plt Count (150-450) k/uL INR (<1.2) APTT (22.0-30.0) sec ABG pH (7.35-7.45) ABG pCO2 (35-45) mmHg ABG pO2 (83-108) mmHg ABG HCO3 (21-25) mmol/L ABG Total CO2 (19-24) mmol/L ABG O2 Saturation (94-97) % ABG Hematocrit (34.0-46.0) % ABG Potassium (3.4-4.5) mmol/L ABG Ionized Calcium (4.5-5.3) mg/dL ABG Glucose (75-99) mg/dL ABG Lactic Acid (0.5-1.6) mmol/L Hemoglobin (13.0-17.5) gm/dL Glucose (74-99) mg/dL POC Glucose (mg/dL) 118 H (75-99) mg/dL ALT (21-72) U/L Total Protein (6.3-8.2) g/dL Albumin (3.5-5.0) g/dL Arterial Blood Potassium (3.4-4.5) mmol/L Arterial Blood Glucose (75-99) mg/dL Crossmatch Assessment and Plan Plan: ASSESSMENT: S/P CABG x 3, POD #1 Coronary artery disease with previous stent placement x 4 Insulin-dependent diabetes mellitus, hemoglobin A1c 8.8% Hypertension Hyperlipidemia Obstructive sleep apnea History of nicotine dependence Obesity: BMI 37.2 PLAN: Continue postoperative care per Dr. More Ventilator management per pulmonary Maintain tight glucose control Continue insulin drip while intubated Once extubated, will begin sliding scale and long-acting insulin and eventually patient may use his insulin pump Home meds as appropriate Monitor labs Monitor vital signs and address as appropriate Further recommendations pending patient's course Nurse practitioner note has been reviewed by physician. Signing provider agrees with the documented findings, assessment, and plan of care.
[2018-02-06 21:04] LABS: Glucose,Whole Blood 122 mg/dL (75-99)
[2018-02-06 22:08] LABS: Glucose,Whole Blood 125 mg/dL (75-99)
[2018-02-06 23:16] LABS: Glucose,Whole Blood 114 mg/dL (75-99)
[2018-02-06] MEDS: SENNOSIDES-DOCUSATE SODIUM 1 EACH TAB PO SCH (23:18)
[2018-02-06] MEDS: METOPROLOL TARTRATE 25 MG TAB PO SCH (23:19)
[2018-02-07 00:08] LABS: Glucose,Whole Blood 127 mg/dL (75-99)
[2018-02-07] MEDS: HEPARIN SODIUM,PORCINE 5,000 UNIT/ML 1 ML VIAL SQ SCH ×4 (00:09→23:20)
[2018-02-07 01:08] LABS: Glucose,Whole Blood 127 mg/dL (75-99)
[2018-02-07] MEDS: HYDROcodone/APAP 5-325MG 1 EACH TAB PO PRN ×3 (02:14→16:12)
[2018-02-07 02:19] LABS: Glucose,Whole Blood 109 mg/dL (75-99)
[2018-02-07] MEDS: DEXMEDETOMIDINE 400 MCG in SODIUM CHLORIDE 0.9% 100 ML IV SCH (02:38)
[2018-02-07] MEDS: CLEVIDIPINE BUTYRATE 25 MG in EMPTY BAG 1 BAG IV SCH ×2 (02:46→04:08)
[2018-02-07 03:04] LABS: Glucose,Whole Blood 126 mg/dL (75-99)
[2018-02-07] MEDS: MORPHINE SULFATE 4 MG/ML SYRINGE IVP PRN (03:13)
[2018-02-07 03:25] LABS: Glucose,Whole Blood 113 mg/dL (75-99)
[2018-02-07 03:38] LABS: ABG Base Excess 0.6 mmol/L; ABG HCO3 25 mmol/L (21-25); ABG Oxygen Saturation 78.3 % (94-97); ABG PCO2 39 mmHg (35-45); ABG PH 7.42 (7.35-7.45); ABG TCO2 26 mmol/L (19-24)
[2018-02-07 03:48] LABS: ABG PO2 43 mmHg (83-108)
[2018-02-07 04:07] LABS: Glucose,Whole Blood 159 mg/dL (75-99)
[2018-02-07] MEDS: KETOROLAC 30 MG/ML 1 ML VIAL IVP SCH ×3 (04:08→18:03)
[2018-02-07 04:45] LABS: Basophils % (A) 0 %; Eosinophils # (A) 0.1 k/uL (0-0.7); Eosinophils % (A) 1 %; HCT 35.9 % (39.0-53.0); HGB 11.8 gm/dL (13.0-17.5); Lymphocytes # (A) 1.4 k/uL (1.0-4.8); Lymphocytes % (A) 15 %; MCH 28.6 pg (25.0-35.0); MCHC 32.9 g/dL (31.0-37.0); MCV 86.8 fL (80.0-100.0); Mean Platelet Volume 7.8; Monocytes # (A) 0.5 k/uL (0-1.0); Monocytes % (A) 6 %; Neutrophils # (A) 7.4 k/uL (1.3-7.7); Neutrophils % (A) 77 %; Platelet Count 132 k/uL (150-450); RBC 4.14 m/uL (4.30-5.90); WBC 9.6 k/uL (3.8-10.6)
[2018-02-07 05:02] LABS: Ionized Calcium 4.8 mg/dL (4.5-5.3)
[2018-02-07 05:10] LABS: Glucose,Whole Blood 163 mg/dL (75-99)
[2018-02-07 05:19] LABS: ALT 19 U/L (21-72); AST 31 U/L (17-59); Albumin 3.9 g/dL (3.5-5.0); Alkaline Phosphatase 58 U/L (38-126); Anion Gap 17 mmol/L; Blood Urea Nitrogen 16 mg/dL (9-20); Calcium 9.1 mg/dL (8.4-10.2); Carbon Dioxide 22 mmol/L (22-30); Chloride 98 mmol/L (98-107); Glucose 174 mg/dL (74-99); Magnesium 1.9 mg/dL (1.6-2.3); Potassium 4.2 mmol/L (3.5-5.1); Sodium 137 mmol/L (137-145); Total Bilirubin 1.8 mg/dL (0.2-1.3); Total Protein 5.7 g/dL (6.3-8.2)
[2018-02-07 06:17] LABS: Glucose,Whole Blood 153 mg/dL (75-99)
[2018-02-07] MEDS: LEVOTHYROXINE 50 MCG TAB PO SCH (06:19)
[2018-02-07] MEDS: LACTATED RINGERS 1,000 ML IV SCH ×3 (06:20→18:05)
[2018-02-07] MEDS: MAGNESIUM SULFATE-D5W PMX 1 GM in DEXTROSE/WATER 1 100ML.BAG IVPB SCH ×2 (06:53→08:23)
[2018-02-07 07:05] LABS: Glucose,Whole Blood 141 mg/dL (75-99)
--- NOTE | 2018-02-07 07:29 | XR ---
EXAMINATION TYPE: XR chest 1V portable DATE OF EXAM: 02/07/2018 COMPARISON: 02/06/2018 HISTORY: Postop cardiac surgery TECHNIQUE: Single frontal view of the chest is obtained. FINDINGS: Right internal jugular central [place] catheter, postsurgical neo and median sternot ze wires, and thoracostomy tubes are similar to the prior. There is been removal of the endotracheal and enteric tubes. Scattered linear opacities are seen throughout the lungs, likely atelectasis with low lung volumes and exaggeration of the cardiomediastinal silhouette secondary to low lung volumes. There is new blunting of the left costophrenic angle. IMPRESSION: New scattered linear airspace disease, likely atelectasis with hypoventilatory lungs and trace left pleural effusion.
[2018-02-07] MEDS: IPRATROPIUM-ALBUTEROL 3 ML NEB INHALATION SCH ×4 (07:44→20:01)
[2018-02-07] MEDS: ASPIRIN 325 MG TAB PO SCH (08:24)
[2018-02-07] MEDS: CLOPIDOGREL 75 MG TAB PO SCH (08:25)
[2018-02-07] MEDS: ATORVASTATIN 40 MG TAB PO SCH (08:25)
[2018-02-07] MEDS: PANTOPRAZOLE 40 MG/10 ML VIAL IVP SCH (08:25)
[2018-02-07] MEDS: METOPROLOL TARTRATE 25 MG TAB PO SCH ×2 (08:25→20:37)
[2018-02-07] MEDS: MUPIROCIN 2% OINT 22 GM TUBE NASAL SCH ×2 (08:25→20:38)
[2018-02-07 08:34] LABS: Glucose,Whole Blood 124 mg/dL (75-99)
[2018-02-07] MEDS: INSULIN REGULAR 100 UNIT in SODIUM CHLORIDE 0.9% 100 ML IV SCH (08:44)
[2018-02-07] MEDS ORDERED: FUROSEMIDE 10 MG/ML 4 ML VIAL IV STA (08:48)
[2018-02-07 09:22] LABS: Glucose,Whole Blood 123 mg/dL (75-99)
--- NOTE | 2018-02-07 09:26 | P.PN ---
Subjective Progress Note Date: 02/07/18 Principal diagnosis: Status post bypass grafting Progress note dated 02/07/2018 67-year-old male postop day #2, status post four-vessel bypass grafting. The patient had some issues with oxygenation and ventilation initially coming out of the operating room. Yesterday, finally after couple weaning attempts, we will extubate the patient. The patient failed his weaning parameters prior to extubation. The patient has a history of diabetes mellitus, managed by insulin pump, CAD with previous myocardial infarction 2016, with previous stent placement to the LAD, hypertension, hyperlipidemia, sleep apnea syndrome and previous tobacco use. The patient did better yesterday after we switched him to dexmedetomidine and DC his propofol. The patient was having arthritis as well. That was treated with narcotics. In addition, the blood pressure was either high or low throughout the day. Needless to say, I'm very happy that we' re able to get him extubated. Currently, the patient is resting comfortably. The patient is currently on 15 L high flow but that'll be titrated down pending his saturations, receiving lactated Ringer's at 50 mL an hour, Cordarone at 1 mg /m, insulin drip at 6.5 units per hour and nitroglycerin at 5 mics per minute. He did develop atrial fibrillation with RVR last night. He was extubated on February 06. Chest x-ray my opinion show some mild fluid overload. He is awake and alert. Objective - Vital Signs Vital signs: Vital Signs Temp 99.7 F H 02/06/18 16:00 Pulse 80 02/07/18 07:56 Resp 18 02/07/18 07:00 BP 151/89 02/06/18 19:00 Pulse Ox 94 L 02/07/18 07:45 Intake & Output 02/06/18 02/07/18 02/07/18 18:59 06:59 18:59 Intake Total 2007.435 896.520 163.011 Output Total 1930 1150 118 Balance 77.435 -253.480 45.011 Weight 119.4 kg Intake: IV 1810 670 150 Cardiac Output 110 70 20 Lactated Ringers 1,000 ml 600 600 130 @ 50 mls/hr IV .Q20H [facility] Rx#:[id number] Ofirmev 100 albumin 1000 Intake, IV Titration 197.435 226.520 13.011 Amount Clevidipine Butyrate 25 20.167 32.067 mg In Empty Bag 1 bag @ 1 MG/HR 2 mls/hr IV .Q24H [facility] Rx#:[id number] Dexmedetomidine 400 mcg 2.292 138.308 2.262 In Sodium Chloride 0.9% 100 ml @ Titrate IV .Q0M [facility] Rx#:[id number] Insulin Regular 100 unit 74.976 56.145 10.749 In Sodium Chloride 0.9% 100 ml @ Per Protocol IV .Q0M [facility] Rx#:[id number] Propofol 1,000 mg In 100.000 Empty Bag 1 bag @ Titrate IV .Q0M [facility] Rx#: [id number] Output: Chest Tube Drainage 320 215 60 Chest Tube Mediastinal 210 80 10 Chest Tube Right Lateral 10 35 20 Chest Left Lateral Chest 100 100 30 Drainage 25 15 Left Wrist 5 5 Right Knee 20 10 Urine 1585 920 58 Other: Voiding Method Indwelling Catheter Indwelling Catheter ABP, PAP, CO, CI - Last Documented Arterial Blood Pressure 99/52 Pulmonary Artery Pressure 34/17 Cardiac Output 9.1 Cardiac Index 4 - Exam No acute distress, oriented 3. High flow oxygen in place. HEENT examination is grossly unremarkable. Mucous membranes are moist. No oral lesions. Neck supple. Full range of motion. No adenopathy thyromegaly or neck vein distention. Cardiovascular examination reveals regular rhythm rate. S1-S2 normal. No S3 or S4. No discernible murmur noted. Lungs reveal few scattered rhonchi. Breath sounds equal. A few crackles are appreciated. No wheezes.. Abdomen soft bowel sounds are heard. No masses or tenderness. Extremities are intact. No cyanosis clubbing or edema. Skin is without rash or lesion. Neurologic examination is brief but nonfocal. - Labs CBC & Chem 7: 02/07/18 04:20 02/07/18 04:20 Labs: Abnormal Lab Results - Last 24 Hours (Table) 02/06/18 02/06/18 02/06/18 Range/Units 09:54 11:47 13:14 RBC (4.30-5.90) m/uL Hgb (13.0-17.5) gm/dL Hct (39.0-53.0) % Plt Count (150-450) k/uL ABG pO2 (83-108) mmHg ABG Total CO2 (19-24) mmol/L ABG O2 Saturation (94-97) % Glucose (74-99) mg/dL POC Glucose (mg/dL) 118 H 116 H 123 H (75-99) mg/dL Total Bilirubin (0.2-1.3) mg/dL ALT (21-72) U/L Total Protein (6.3-8.2) g/dL 02/06/18 02/06/18 02/06/18 Range/Units 14:22 15:09 16:31 RBC (4.30-5.90) m/uL Hgb (13.0-17.5) gm/dL Hct (39.0-53.0) % Plt Count (150-450) k/uL ABG pO2 (83-108) mmHg ABG Total CO2 (19-24) mmol/L ABG O2 Saturation (94-97) % Glucose (74-99) mg/dL POC Glucose (mg/dL) 154 H 190 H 166 H (75-99) mg/dL Total Bilirubin (0.2-1.3) mg/dL ALT (21-72) U/L Total Protein (6.3-8.2) g/dL 02/06/18 02/06/18 02/06/18 Range/Units 17:14 19:08 19:47 RBC (4.30-5.90) m/uL Hgb (13.0-17.5) gm/dL Hct (39.0-53.0) % Plt Count (150-450) k/uL ABG pO2 (83-108) mmHg ABG Total CO2 (19-24) mmol/L ABG O2 Saturation (94-97) % Glucose (74-99) mg/dL POC Glucose (mg/dL) 125 H 132 H 107 H (75-99) mg/dL Total Bilirubin (0.2-1.3) mg/dL ALT (21-72) U/L Total Protein (6.3-8.2) g/dL 02/06/18 02/06/18 02/06/18 Range/Units 21:03 22:06 23:15 RBC (4.30-5.90) m/uL Hgb (13.0-17.5) gm/dL Hct (39.0-53.0) % Plt Count (150-450) k/uL ABG pO2 (83-108) mmHg ABG Total CO2 (19-24) mmol/L ABG O2 Saturation (94-97) % Glucose (74-99) mg/dL POC Glucose (mg/dL) 122 H 125 H 114 H (75-99) mg/dL Total Bilirubin (0.2-1.3) mg/dL ALT (21-72) U/L Total Protein (6.3-8.2) g/dL 02/07/18 02/07/18 02/07/18 Range/Units 00:06 01:06 02:16 RBC (4.30-5.90) m/uL Hgb (13.0-17.5) gm/dL Hct (39.0-53.0) % Plt Count (150-450) k/uL ABG pO2 (83-108) mmHg ABG Total CO2 (19-24) mmol/L ABG O2 Saturation (94-97) % Glucose (74-99) mg/dL POC Glucose (mg/dL) 127 H 127 H 109 H (75-99) mg/dL Total Bilirubin (0.2-1.3) mg/dL ALT (21-72) U/L Total Protein (6.3-8.2) g/dL 02/07/18 02/07/18 02/07/18 Range/Units 03:02 03:23 03:33 RBC (4.30-5.90) m/uL Hgb (13.0-17.5) gm/dL Hct (39.0-53.0) % Plt Count (150-450) k/uL ABG pO2 43 L* (83-108) mmHg ABG Total CO2 26 H (19-24) mmol/L ABG O2 Saturation 78.3 L (94-97) % Glucose (74-99) mg/dL POC Glucose (mg/dL) 126 H 113 H (75-99) mg/dL Total Bilirubin (0.2-1.3) mg/dL ALT (21-72) U/L Total Protein (6.3-8.2) g/dL 02/07/18 02/07/18 02/07/18 Range/Units 04:06 04:20 04:20 RBC 4.14 L (4.30-5.90) m/uL Hgb 11.8 L (13.0-17.5) gm/dL Hct 35.9 L (39.0-53.0) % Plt Count 132 L (150-450) k/uL ABG pO2 (83-108) mmHg ABG Total CO2 (19-24) mmol/L ABG O2 Saturation (94-97) % Glucose 174 H (74-99) mg/dL POC Glucose (mg/dL) 159 H (75-99) mg/dL Total Bilirubin 1.8 H (0.2-1.3) mg/dL ALT 19 L (21-72) U/L Total Protein 5.7 L (6.3-8.2) g/dL 02/07/18 02/07/18 02/07/18 Range/Units 05:09 06:15 07:04 RBC (4.30-5.90) m/uL Hgb (13.0-17.5) gm/dL Hct (39.0-53.0) % Plt Count (150-450) k/uL ABG pO2 (83-108) mmHg ABG Total CO2 (19-24) mmol/L ABG O2 Saturation (94-97) % Glucose (74-99) mg/dL POC Glucose (mg/dL) 163 H 153 H 141 H (75-99) mg/dL Total Bilirubin (0.2-1.3) mg/dL ALT (21-72) U/L Total Protein (6.3-8.2) g/dL 02/07/18 Range/Units 08:33 RBC (4.30-5.90) m/uL Hgb (13.0-17.5) gm/dL Hct (39.0-53.0) % Plt Count (150-450) k/uL ABG pO2 (83-108) mmHg ABG Total CO2 (19-24) mmol/L ABG O2 Saturation (94-97) % Glucose (74-99) mg/dL POC Glucose (mg/dL) 124 H (75-99) mg/dL Total Bilirubin (0.2-1.3) mg/dL ALT (21-72) U/L Total Protein (6.3-8.2) g/dL Assessment and Plan Assessment: Assessment Postop day #2, status post three-vessel bypass grafting Status post postoperative respiratory failure, resolved, the postoperative period being complicated by both hypoxemic and hypercapnia. History of CAD with previous myocardial infarction, 2017 and previous stent placement in the proximal LAD History of diabetes mellitus, type I, with intensive therapy via insulin pump History of hypertension Hyperlipidemia by history History of sleep apnea syndrome Previous history of tobacco use Plan: Plan dated 02/06/2018 We'll transition the patient from propofol to Precedex. The patient will be given IV acetaminophen for temperature control and IV morphine for control of Love's. The patient's Cleviprex was increased for blood pressure control. Additional recommendations and suggestions are forthcoming. Hopefully, we'll be able to wean and extubate this patient this morning. Oxygenation is improved. Labs x-rays and medications are all reviewed. Plan dated 02/07/2018 The patient did seem to improve and settle down once we switch him from propofol to Precedex. The patient was given additional IV acetaminophen for temperature control and IV morphine/fentanyl for control of rigors. The patient failed weaning attempts and weaning parameters earlier today but right around changes shift, the patient seemed to do better get the patient extubated. The patient is now on 15 L high flow which can be titrated down. We 'll continue to follow closely. He did develop atrial fibrillation with RVR last night and placed on Cordarone 1 mg/m. He remains on insulin drip at 6.5 units per hour and nitroglycerin at 5 mcg/m. Critical care time 39 minutes Time with Patient: Greater than 30
[2018-02-07] MEDS: AMIODARONE 200 MG TAB PO SCH ×2 (09:43→20:37)
[2018-02-07] MEDS: DILTIAZEM ORAL 30 MG TAB PO SCH ×4 (09:43→22:55)
[2018-02-07 09:44] LABS: Glucose,Whole Blood 124 mg/dL (75-99)
[2018-02-07] MEDS ORDERED: MORPHINE ORAL SOLN 10 MG/5 ML CUP PO PRN (09:49)
[2018-02-07 10:37] VITALS: BMI 37.8
[2018-02-07 11:09] LABS: Glucose,Whole Blood 94 mg/dL (75-99)
--- NOTE | 2018-02-07 11:49 | P.PN ---
Subjective Progress Note Date: 02/07/18 67-year-old male who underwent CABG 3 on 02/05/[address] Miles was consulted for medical management. The patient has a history of COPD, coronary artery disease with 4 stents, diabetes mellitus utilizing insulin pump, hyperlipidemia, hypertension, myocardial infarction, and sleep apnea. He does not utilize a CPAP machine. He is a former cigarette smoker and quit smoking in 1984. Patient smoked 2 packs per day. 02/06/2018 The patient was seen and examined in the intensive care unit this morning by Dr. Miles. The patient remains sedated and intubated. Patient remains on insulin drip. Blood sugars are well controlled and ranging from 118-138. 02/07/2018 Patient seen and examined at the bedside on rounds with Dr. Miles. Patient remains in the ICU. Patient was extubated yesterday. Patient is currently on 15L oxygen. Saturations greater than 92%. Patient is coughing frequently and voices that his chest is sore. Heart hugger in place. Patient remains on insulin drip this morning per protocol. Objective - Vital Signs Vital signs: Vital Signs Temp 99.7 F H 02/06/18 16:00 Pulse 68 02/07/18 11:00 Resp 12 02/07/18 11:00 BP 151/89 02/06/18 19:00 Pulse Ox 100 02/07/18 11:00 Intake & Output 02/06/18 02/07/18 02/07/18 18:59 06:59 18:59 Intake Total 2006.435 896.520 551.040 Output Total 1930 1150 209 Balance 77.435 -253.480 342.040 Weight 119.4 kg 119.4 kg Intake: IV 1810 670 220 Cardiac Output 110 70 20 Lactated Ringers 1,000 ml 600 600 200 @ 50 mls/hr IV .Q20H [facility] Rx#:[id number] Ofirmev 100 albumin 1000 Intake, IV Titration 197.435 226.520 131.040 Amount Clevidipine Butyrate 25 20.167 32.067 mg In Empty Bag 1 bag @ 1 MG/HR 2 mls/hr IV .Q24H [facility] Rx#:[id number] Dexmedetomidine 400 mcg 2.292 138.308 2.262 In Sodium Chloride 0.9% 100 ml @ Titrate IV .Q0M [facility] Rx#:[id number] Insulin Regular 100 unit 74.976 56.145 28.778 In Sodium Chloride 0.9% 100 ml @ Per Protocol IV .Q0M [facility] Rx#:[id number] Magnesium Sulfate-D5w Pmx 100 1 gm In Dextrose/Water 1 100ml.bag @ 100 mls/hr IVPB Q1H [facility] Rx#: [id number] Propofol 1,000 mg In 100.000 Empty Bag 1 bag @ Titrate IV .Q0M [facility] Rx#: [id number] Oral 200 Output: Chest Tube Drainage 320 215 80 Chest Tube Mediastinal 210 80 10 Chest Tube Right Lateral 10 35 20 Chest Left Lateral Chest 100 100 50 Drainage 25 15 25 Left Wrist 5 5 5 Right Knee 20 10 20 Urine 1585 920 104 Other: Voiding Method Indwelling Catheter Indwelling Catheter Indwelling Catheter ABP, PAP, CO, CI - Last Documented Arterial Blood Pressure 108/60 Pulmonary Artery Pressure 37/16 Cardiac Output 6.8 Cardiac Index 3 - Exam GENERAL: This is a 67-year-old male in no apparent distress at the time of examination. Pleasant and cooperative. HEENT: Head is atraumatic, normocephalic. Pupils are equal, round, and reactive to light. Sclerae anicteric. Conjunctivae are clear. Mucus membranes of the mouth are moist. Neck is supple. RESPIRATORY: Some scattered rhonchi noted. No wheezing. Frequently coughing. No use of accessory muscles. Patient maintaining oxygen saturation greater than 92 % on 15L. CARDIOVASCULAR: Mediastinal and pleural chest tubes noted. Regular rate and rhythm. S1 and S2 noted. No systolic or diastolic murmur auscultated. No JVD noted. No S3 or S4 noted. GASTROINTESTINAL: No distention noted. Abdomen soft and round. Normal active bowel sounds auscultated x 4 quadrants. No pain or tenderness noted upon palpation. INTEGUMENTARY: Dressing to chest CDI. JONAS drain noted to upper and lower extremity with serosanguineous drainage. No cyanosis. No jaundice. No rashes noted. No cellulitis noted. EXTREMITIES: 2+ peripheral pulses. No evidence of peripheral edema. No calf tenderness noted. NEUROLOGIC: Cranial nerves II-XII intact. PSYCHIATRIC: Awake, alert, and oriented X 3. Appropriate affect. Intact judgement and insight. - Labs CBC & Chem 7: 02/07/18 04:20 02/07/18 04:20 Labs: Abnormal Lab Results - Last 24 Hours (Table) 02/06/18 02/06/18 02/06/18 Range/Units 11:47 13:14 14:22 RBC (4.30-5.90) m/uL Hgb (13.0-17.5) gm/dL Hct (39.0-53.0) % Plt Count (150-450) k/uL ABG pO2 (83-108) mmHg ABG Total CO2 (19-24) mmol/L ABG O2 Saturation (94-97) % Glucose (74-99) mg/dL POC Glucose (mg/dL) 116 H 123 H 154 H (75-99) mg/dL Total Bilirubin (0.2-1.3) mg/dL ALT (21-72) U/L Total Protein (6.3-8.2) g/dL 02/06/18 02/06/18 02/06/18 Range/Units 15:09 16:31 17:14 RBC (4.30-5.90) m/uL Hgb (13.0-17.5) gm/dL Hct (39.0-53.0) % Plt Count (150-450) k/uL ABG pO2 (83-108) mmHg ABG Total CO2 (19-24) mmol/L ABG O2 Saturation (94-97) % Glucose (74-99) mg/dL POC Glucose (mg/dL) 190 H 166 H 125 H (75-99) mg/dL Total Bilirubin (0.2-1.3) mg/dL ALT (21-72) U/L Total Protein (6.3-8.2) g/dL 02/06/18 02/06/18 02/06/18 Range/Units 19:08 19:47 21:03 RBC (4.30-5.90) m/uL Hgb (13.0-17.5) gm/dL Hct (39.0-53.0) % Plt Count (150-450) k/uL ABG pO2 (83-108) mmHg ABG Total CO2 (19-24) mmol/L ABG O2 Saturation (94-97) % Glucose (74-99) mg/dL POC Glucose (mg/dL) 132 H 107 H 122 H (75-99) mg/dL Total Bilirubin (0.2-1.3) mg/dL ALT (21-72) U/L Total Protein (6.3-8.2) g/dL 02/06/18 02/06/18 02/07/18 Range/Units 22:06 23:15 00:06 RBC (4.30-5.90) m/uL Hgb (13.0-17.5) gm/dL Hct (39.0-53.0) % Plt Count (150-450) k/uL ABG pO2 (83-108) mmHg ABG Total CO2 (19-24) mmol/L ABG O2 Saturation (94-97) % Glucose (74-99) mg/dL POC Glucose (mg/dL) 125 H 114 H 127 H (75-99) mg/dL Total Bilirubin (0.2-1.3) mg/dL ALT (21-72) U/L Total Protein (6.3-8.2) g/dL 02/07/18 02/07/18 02/07/18 Range/Units 01:06 02:16 03:02 RBC (4.30-5.90) m/uL Hgb (13.0-17.5) gm/dL Hct (39.0-53.0) % Plt Count (150-450) k/uL ABG pO2 (83-108) mmHg ABG Total CO2 (19-24) mmol/L ABG O2 Saturation (94-97) % Glucose (74-99) mg/dL POC Glucose (mg/dL) 127 H 109 H 126 H (75-99) mg/dL Total Bilirubin (0.2-1.3) mg/dL ALT (21-72) U/L Total Protein (6.3-8.2) g/dL 02/07/18 02/07/18 02/07/18 Range/Units 03:23 03:33 04:06 RBC (4.30-5.90) m/uL Hgb (13.0-17.5) gm/dL Hct (39.0-53.0) % Plt Count (150-450) k/uL ABG pO2 43 L* (83-108) mmHg ABG Total CO2 26 H (19-24) mmol/L ABG O2 Saturation 78.3 L (94-97) % Glucose (74-99) mg/dL POC Glucose (mg/dL) 113 H 159 H (75-99) mg/dL Total Bilirubin (0.2-1.3) mg/dL ALT (21-72) U/L Total Protein (6.3-8.2) g/dL 02/07/18 02/07/18 02/07/18 Range/Units 04:20 04:20 05:09 RBC 4.14 L (4.30-5.90) m/uL Hgb 11.8 L (13.0-17.5) gm/dL Hct 35.9 L (39.0-53.0) % Plt Count 132 L (150-450) k/uL ABG pO2 (83-108) mmHg ABG Total CO2 (19-24) mmol/L ABG O2 Saturation (94-97) % Glucose 174 H (74-99) mg/dL POC Glucose (mg/dL) 163 H (75-99) mg/dL Total Bilirubin 1.8 H (0.2-1.3) mg/dL ALT 19 L (21-72) U/L Total Protein 5.7 L (6.3-8.2) g/dL 02/07/18 02/07/18 02/07/18 Range/Units 06:15 07:04 08:33 RBC (4.30-5.90) m/uL Hgb (13.0-17.5) gm/dL Hct (39.0-53.0) % Plt Count (150-450) k/uL ABG pO2 (83-108) mmHg ABG Total CO2 (19-24) mmol/L ABG O2 Saturation (94-97) % Glucose (74-99) mg/dL POC Glucose (mg/dL) 153 H 141 H 124 H (75-99) mg/dL Total Bilirubin (0.2-1.3) mg/dL ALT (21-72) U/L Total Protein (6.3-8.2) g/dL 02/07/18 02/07/18 Range/Units 09:21 09:41 RBC (4.30-5.90) m/uL Hgb (13.0-17.5) gm/dL Hct (39.0-53.0) % Plt Count (150-450) k/uL ABG pO2 (83-108) mmHg ABG Total CO2 (19-24) mmol/L ABG O2 Saturation (94-97) % Glucose (74-99) mg/dL POC Glucose (mg/dL) 123 H 124 H (75-99) mg/dL Total Bilirubin (0.2-1.3) mg/dL ALT (21-72) U/L Total Protein (6.3-8.2) g/dL Assessment and Plan Plan: ASSESSMENT: S/P CABG x 3, POD #2 Coronary artery disease with previous stent placement x 4 Insulin-dependent diabetes mellitus, hemoglobin A1c 8.8% Hypertension Hyperlipidemia Obstructive sleep apnea History of nicotine dependence Obesity: BMI 37.2 PLAN: Continue postoperative care per Dr. More Discontinue insulin drip Begin Levemir 30 units at HS Novolog sliding scale plus novolog 10 units AC-TID Maintain tight glucose control. Will make adjustments to insulin regimen depending on glucose trends Possibility of patient using his own insulin pump within the next day or two. Will re-evaluate daily. Further recommendations pending patient's course Nurse practitioner note has been reviewed by physician. Signing provider agrees with the documented findings, assessment, and plan of care.
[2018-02-07 12:17] LABS: Glucose,Whole Blood 118 mg/dL (75-99)
[2018-02-07] MEDS: INSULIN ASPART 100 UNIT/ML 1 ML 10 ML VIAL SQ SCH ×5 (12:38→21:15)
[2018-02-07 13:43] LABS: Glucose,Whole Blood 165 mg/dL (75-99)
--- NOTE | 2018-02-07 14:04 | PN ---
PROGRESS NOTE This patient is status post coronary artery bypass surgery. The events over the last 24 hours reviewed. Patient went into atrial fibrillation. Patient was treated with IV amiodarone and now he has converted to normal sinus rhythm. Patient was also extubated last night. He is comfortable. No respiratory distress is noted. Patient is afebrile. Heart rate is 80 per minute. Respirations are not labored. Heart: First and second heart sounds are normal. Lungs reveal bilateral diminished air entry. FINAL IMPRESSION: This patient is status post coronary artery bypass surgery. He has remained stable. We will continue the current medications. Patient is on oral amiodarone. If patient has had recurrent episodes of atrial fibrillation, anticoagulation would be considered. MMODL / IJN: [id number] /
--- NOTE | 2018-02-07 16:27 | P.PN ---
Subjective Progress Note Date: 02/07/18 Principal diagnosis: Triple-vessel coronary artery disease, status post remote stenting of his left anterior descending coronary artery twice in March 2016, mild left ventricular dysfunction, hypertension, hyperlipidemia, obstructive sleep apnea status post surgical revision and no current CPAP use, insulin-dependent diabetes mellitus managed with home insulin pump, varicose veins and remote history of tobacco dependence quit smoking 30-40 years ago. POD #2 coronary artery bypass grafting 3 using the left internal mammary artery to the left anterior descending coronary artery, left radial artery from the aorta to the second obtuse marginal coronary artery, a reverse greater saphenous vein graft from the aorta to the right coronary artery, endoscopic harvesting of the left radial artery, endoscopic harvesting of the right greater saphenous vein from knee to ankle level, intraoperative transesophageal echocardiogram and epi-aortic scanning, intraoperative graft flow measurement using the [employer] System. Patient was extubated last evening at 18:45 p.m. Is currently awake, alert and oriented 3. He is moving all 4 extremities appropriately. He denies any complaints of pain. Currently the patient is on a partial nonrebreather, his oxygen saturation are 96%. He is achieving 1000 mL on his incentive spirometry. He went into atrial fibrillation with RVR last night and was started on amiodarone drip at 1 mg/m per protocol. Objective - Vital Signs Vital signs: Vital Signs Temp 98 F 02/07/18 12:00 Pulse 73 02/07/18 16:01 Resp 14 02/07/18 15:00 BP 151/89 02/06/18 19:00 Pulse Ox 100 02/07/18 15:00 Intake & Output 02/06/18 02/07/18 02/07/18 18:59 06:59 18:59 Intake Total 2006.435 742.650 5619.040 Output Total 1930 1150 366 Balance 77.435 -253.480 715.040 Weight 119.4 kg 119.4 kg Intake: IV 1810 670 300 Cardiac Output 110 70 20 Lactated Ringers 1,000 ml 600 600 280 @ 50 mls/hr IV .Q20H [facility] Rx#:[id number] Ofirmev 100 albumin 1000 Intake, IV Titration 197.435 226.520 131.040 Amount Clevidipine Butyrate 25 20.167 32.067 mg In Empty Bag 1 bag @ 1 MG/HR 2 mls/hr IV .Q24H [facility] Rx#:[id number] Dexmedetomidine 400 mcg 2.292 138.308 2.262 In Sodium Chloride 0.9% 100 ml @ Titrate IV .Q0M [facility] Rx#:[id number] Insulin Regular 100 unit 74.976 56.145 28.778 In Sodium Chloride 0.9% 100 ml @ Per Protocol IV .Q0M [facility] Rx#:[id number] Magnesium Sulfate-D5w Pmx 100 1 gm In Dextrose/Water 1 100ml.bag @ 100 mls/hr IVPB Q1H [facility] Rx#: [id number] Propofol 1,000 mg In 100.000 Empty Bag 1 bag @ Titrate IV .Q0M [facility] Rx#: [id number] Oral 650 Output: Chest Tube Drainage 320 215 120 Chest Tube Mediastinal 210 80 10 Chest Tube Right Lateral 10 35 20 Chest Left Lateral Chest 100 100 90 Drainage 25 15 25 Left Wrist 5 5 5 Right Knee 20 10 20 Urine 1585 920 221 Other: Voiding Method Indwelling Catheter Indwelling Catheter Indwelling Catheter ABP, PAP, CO, CI - Last Documented Arterial Blood Pressure 117/60 Pulmonary Artery Pressure 37/16 Cardiac Output 6.8 Cardiac Index 3 - Constitutional General appearance: Present: cooperative, no acute distress, obese - Respiratory Details: Lung sounds are essentially clear to his bilateral upper lobes, diminished to his bilateral bases. Respirations are symmetrical and nonlabored. Oxygen saturation are 96% on a partial nonrebreather. He is achieving 1000 L on his incentive spirometry. Mediastinal and left and right pleural chest tubes to low continuous wall suction -20 cm H2O. Draining thin serosanguineous drainage. No air leak present. Mediastinal chest tube drained 50 mL in 8 hours , 210 mL in 24 hours. Left pleural chest tube drained 50 mL in 8 hours, 200 mL in 24 hours. Right pleural chest tube drained 10 mL in 8 hours, 40 mL in 24 hours. - Cardiovascular Details: Regular rhythm and rate. S1 and S2 present, negative for S3, gallop or murmur. Sternum is stable. Bedside telemetry showing normal sinus rhythm at this time heart rate 78. No further episodes of atrial fibrillation at this time. Atrial and ventricular epicardial pacemaker wires intact and grounded. Knee- high SERG hose and sequential compression devices in place to his bilateral lower extremities. Right IJ Cordis with Cushing-Dionne catheter in place and functioning. Current cardiac output 9.1, cardiac index 4.0, PA pressures 33/16 , CVP is 10. Left brachial A-line intact and functioning. Palpable ulnar pulse bilaterally. - Gastrointestinal Gastrointestinal Comment(s): Abdomen is soft, nontender and nondistended. Active bowel sounds all 4 abdominal quadrants. Tolerating oral intake. Passing flatus. - Genitourinary Genitourinary Comment(s): Garcia catheter for accurate I&O. Draining clear yellow urine. 725 mL output in the last 8 hours. - Integumentary Integumentary Comment(s): Skin is warm and dry. No clubbing or cyanosis present. Midline sternal incision clean dry and approximated. No drainage or redness present. Dermabond dressing clean and dry. Left arm radial artery harvesting sites clean and dry and approximated. No drainage or redness present. JONAS drain in place to his left forearm draining thin serosanguineous drainage. 5 mL output in the last 8 hours. Right leg EVH harvest site clean dry and approximated. No drainage or redness present. JONAS drain in place draining thin serosanguineous drainage, 20 mL output last 8 hours. - Neurologic Neurologic: Present: CNII-XII intact - Musculoskeletal Musculoskeletal: Present: gait normal, strength equal bilaterally - Psychiatric Psychiatric: Present: A&O x's 3, appropriate affect, intact judgment & insight - Allied health notes Allied health notes reviewed: nursing - Labs CBC & Chem 7: 02/07/18 04:20 02/07/18 04:20 Labs: Abnormal Lab Results - Last 24 Hours (Table) 02/06/18 02/06/18 02/06/18 Range/Units 16:31 17:14 19:08 RBC (4.30-5.90) m/uL Hgb (13.0-17.5) gm/dL Hct (39.0-53.0) % Plt Count (150-450) k/uL ABG pO2 (83-108) mmHg ABG Total CO2 (19-24) mmol/L ABG O2 Saturation (94-97) % Glucose (74-99) mg/dL POC Glucose (mg/dL) 166 H 125 H 132 H (75-99) mg/dL Total Bilirubin (0.2-1.3) mg/dL ALT (21-72) U/L Total Protein (6.3-8.2) g/dL 02/06/18 02/06/18 02/06/18 Range/Units 19:47 21:03 22:06 RBC (4.30-5.90) m/uL Hgb (13.0-17.5) gm/dL Hct (39.0-53.0) % Plt Count (150-450) k/uL ABG pO2 (83-108) mmHg ABG Total CO2 (19-24) mmol/L ABG O2 Saturation (94-97) % Glucose (74-99) mg/dL POC Glucose (mg/dL) 107 H 122 H 125 H (75-99) mg/dL Total Bilirubin (0.2-1.3) mg/dL ALT (21-72) U/L Total Protein (6.3-8.2) g/dL 02/06/18 02/07/18 02/07/18 Range/Units 23:15 00:06 01:06 RBC (4.30-5.90) m/uL Hgb (13.0-17.5) gm/dL Hct (39.0-53.0) % Plt Count (150-450) k/uL ABG pO2 (83-108) mmHg ABG Total CO2 (19-24) mmol/L ABG O2 Saturation (94-97) % Glucose (74-99) mg/dL POC Glucose (mg/dL) 114 H 127 H 127 H (75-99) mg/dL Total Bilirubin (0.2-1.3) mg/dL ALT (21-72) U/L Total Protein (6.3-8.2) g/dL 02/07/18 02/07/18 02/07/18 Range/Units 02:16 03:02 03:23 RBC (4.30-5.90) m/uL Hgb (13.0-17.5) gm/dL Hct (39.0-53.0) % Plt Count (150-450) k/uL ABG pO2 (83-108) mmHg ABG Total CO2 (19-24) mmol/L ABG O2 Saturation (94-97) % Glucose (74-99) mg/dL POC Glucose (mg/dL) 109 H 126 H 113 H (75-99) mg/dL Total Bilirubin (0.2-1.3) mg/dL ALT (21-72) U/L Total Protein (6.3-8.2) g/dL 02/07/18 02/07/18 02/07/18 Range/Units 03:33 04:06 04:20 RBC (4.30-5.90) m/uL Hgb (13.0-17.5) gm/dL Hct (39.0-53.0) % Plt Count (150-450) k/uL ABG pO2 43 L* (83-108) mmHg ABG Total CO2 26 H (19-24) mmol/L ABG O2 Saturation 78.3 L (94-97) % Glucose 174 H (74-99) mg/dL POC Glucose (mg/dL) 159 H (75-99) mg/dL Total Bilirubin 1.8 H (0.2-1.3) mg/dL ALT 19 L (21-72) U/L Total Protein 5.7 L (6.3-8.2) g/dL 02/07/18 02/07/18 02/07/18 Range/Units 04:20 05:09 06:15 RBC 4.14 L (4.30-5.90) m/uL Hgb 11.8 L (13.0-17.5) gm/dL Hct 35.9 L (39.0-53.0) % Plt Count 132 L (150-450) k/uL ABG pO2 (83-108) mmHg ABG Total CO2 (19-24) mmol/L ABG O2 Saturation (94-97) % Glucose (74-99) mg/dL POC Glucose (mg/dL) 163 H 153 H (75-99) mg/dL Total Bilirubin (0.2-1.3) mg/dL ALT (21-72) U/L Total Protein (6.3-8.2) g/dL 02/07/18 02/07/18 02/07/18 Range/Units 07:04 08:33 09:21 RBC (4.30-5.90) m/uL Hgb (13.0-17.5) gm/dL Hct (39.0-53.0) % Plt Count (150-450) k/uL ABG pO2 (83-108) mmHg ABG Total CO2 (19-24) mmol/L ABG O2 Saturation (94-97) % Glucose (74-99) mg/dL POC Glucose (mg/dL) 141 H 124 H 123 H (75-99) mg/dL Total Bilirubin (0.2-1.3) mg/dL ALT (21-72) U/L Total Protein (6.3-8.2) g/dL 02/07/18 02/07/18 02/07/18 Range/Units 09:41 12:17 13:42 RBC (4.30-5.90) m/uL Hgb (13.0-17.5) gm/dL Hct (39.0-53.0) % Plt Count (150-450) k/uL ABG pO2 (83-108) mmHg ABG Total CO2 (19-24) mmol/L ABG O2 Saturation (94-97) % Glucose (74-99) mg/dL POC Glucose (mg/dL) 124 H 118 H 165 H (75-99) mg/dL Total Bilirubin (0.2-1.3) mg/dL ALT (21-72) U/L Total Protein (6.3-8.2) g/dL - Imaging and Cardiology Chest x-ray: report reviewed, image reviewed Assessment and Plan (1) History of obstructive sleep apnea Current Visit: No Status: Acute Code(s): Z86.69 - PERSONAL HISTORY OF DIS OF THE NERVOUS SYS AND SENSE ORGANS SNOMED Code(s): 258317759 (2) Coronary artery disease Current Visit: No Status: Chronic Code(s): I25.10 - ATHSCL HEART DISEASE OF [place] CORONARY ARTERY W/O ANG PCTRS SNOMED Code(s): 18525263 (3) Family history of premature coronary artery disease Current Visit: No Status: Chronic Code(s): Z82.49 - FAMILY HX OF ISCHEM HEART DIS AND OTH DIS OF THE CIRC SYS SNOMED Code(s): 463703382 (4) History of coronary artery stent placement Current Visit: No Status: Chronic Code(s): Z95.5 - PRESENCE OF CORONARY ANGIOPLASTY IMPLANT AND GRAFT SNOMED Code(s): 846166615 (5) Hyperlipidemia Current Visit: No Status: Chronic Code(s): E78.5 - HYPERLIPIDEMIA, UNSPECIFIED SNOMED Code(s): 53765724 (6) Hypertension Current Visit: No Status: Chronic Code(s): I10 - ESSENTIAL (PRIMARY) HYPERTENSION SNOMED Code(s): 62969131 (7) Insulin dependent diabetes mellitus Current Visit: No Status: Chronic Code(s): E11.9 - TYPE 2 DIABETES MELLITUS WITHOUT COMPLICATIONS; 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 Continue aspirin, statin, subcu heparin, and beta lauri. Continue metoprolol tartrate 25 mg by mouth twice a day. 2. Pulmonary management per Dr. Dorado. 3. Discontinue nitroglycerin drip and start Cardizem 30 mg by mouth every 6 hours. Do not stop Cardizem due to radial artery spasm. 4. GI and DVT prophylaxis. 5. Increase activity as tolerated, physical, occupational therapy and cardiac rehab following. 6. Lasix 40 mg IV 1 now. 7. Discontinue mediastinal and right pleural chest tubes. Continue left pleural chest tube to low continuous wall suction -20 cm H2O. 8. Blood sugar management per primary care service. 9. Will monitor daily labs and chest x-rays. 10. Remove Cushing-Dionne catheter keep right IJ cordis and placed to continuous CVP monitoring. 11. Remove left arm and right leg JONAS drains. 12. Start amiodarone 400 mg by mouth twice a day for atrial fib ablation prophylaxis. Once amiodarone drip is finished discontinue. 13. Encourage use of his incentive spirometry every hour while awake. 14. More recommendations to follow based on the patient's clinical course. Time with Patient: Greater than 30
[2018-02-07 17:15] LABS: Glucose,Whole Blood 168 mg/dL (75-99)
[2018-02-07] MEDS: SENNOSIDES-DOCUSATE SODIUM 1 EACH TAB PO SCH (20:37)
[2018-02-07 20:45] LABS: Hemoglobin A1C 8.4 % (4.0-6.0)
[2018-02-07] MEDS ORDERED: INSULIN DETEMIR 100 UNIT/ML 10 ML VIAL SQ SCH (21:00)
[2018-02-07 21:03] LABS: Glucose,Whole Blood 178 mg/dL (75-99)
[2018-02-07] MEDS: BENZOCAINE/MENTHOL LOZENG 1 EACH LOZENGE MUCOUS MEM PRN (22:23)
[2018-02-08] MEDS: KETOROLAC 30 MG/ML 1 ML VIAL IVP SCH (00:22)
[2018-02-08] MEDS: BENZOCAINE/MENTHOL LOZENG 1 EACH LOZENGE MUCOUS MEM PRN ×3 (00:23→10:43)
[2018-02-08] MEDS: HYDROcodone/APAP 5-325MG 1 EACH TAB PO PRN ×2 (01:38→10:37)
[2018-02-08 05:26] LABS: Ionized Calcium 4.9 mg/dL (4.5-5.3)
[2018-02-08 05:29] LABS: Basophils % (A) 0 %; Eosinophils # (A) 0.2 k/uL (0-0.7); Eosinophils % (A) 2 %; HCT 33.7 % (39.0-53.0); Lymphocytes # (A) 1.3 k/uL (1.0-4.8); Lymphocytes % (A) 17 %; MCH 28.4 pg (25.0-35.0); MCHC 32.5 g/dL (31.0-37.0); MCV 87.5 fL (80.0-100.0); Monocytes # (A) 0.4 k/uL (0-1.0); Monocytes % (A) 6 %; Neutrophils # (A) 5.5 k/uL (1.3-7.7); Neutrophils % (A) 73 %; Platelet Count 135 k/uL (150-450); RBC 3.85 m/uL (4.30-5.90); RDW 14.9 % (11.5-15.5); WBC 7.5 k/uL (3.8-10.6)
[2018-02-08 05:36] LABS: Albumin 3.4 g/dL (3.5-5.0); Calcium 8.9 mg/dL (8.4-10.2); Magnesium 2.3 mg/dL (1.6-2.3); Potassium 4.5 mmol/L (3.5-5.1); Total Bilirubin 0.8 mg/dL (0.2-1.3); Total Protein 5.4 g/dL (6.3-8.2)
[2018-02-08 07:03] LABS: Glucose,Whole Blood 170 mg/dL (75-99)
[2018-02-08] MEDS: LEVOTHYROXINE 50 MCG TAB PO SCH (07:21)
--- NOTE | 2018-02-08 07:24 | XR ---
EXAMINATION TYPE: XR chest 1V portable DATE OF EXAM: 02/08/2018 COMPARISON: 02/07/2018 HISTORY: SOB, Follow Up FINDINGS: Indwelling tubes and catheters are unchanged. No change in bibasilar opacities. Stable appearance of the cardio-mediastinal structures at this time. Pleural effusion unchanged. IMPRESSION: 1. Stable portable chest. Clinical correlation and follow up until resolution is recommended.
[2018-02-08 07:43] LABS: Glucose,Whole Blood 201 mg/dL (75-99)
[2018-02-08] MEDS: PANTOPRAZOLE 40 MG TABLET PO SCH (07:46)
[2018-02-08] MEDS: HEPARIN SODIUM,PORCINE 5,000 UNIT/ML 1 ML VIAL SQ SCH ×2 (07:47→16:24)
[2018-02-08] MEDS: INSULIN ASPART 100 UNIT/ML 1 ML 10 ML VIAL SQ SCH ×7 (07:47→21:02)
[2018-02-08] MEDS ORDERED: INSULIN ASPART 100 UNIT/ML 1 ML 10 ML VIAL SQ ONE (07:55)
[2018-02-08] MEDS: METOPROLOL TARTRATE 25 MG TAB PO SCH (07:58)
[2018-02-08] MEDS: DILTIAZEM ORAL 30 MG TAB PO SCH ×4 (07:58→21:04)
[2018-02-08] MEDS: ASPIRIN 325 MG TAB PO SCH (07:59)
[2018-02-08] MEDS: ATORVASTATIN 40 MG TAB PO SCH (07:59)
[2018-02-08] MEDS: CLOPIDOGREL 75 MG TAB PO SCH (07:59)
[2018-02-08] MEDS: AMIODARONE 200 MG TAB PO SCH ×2 (07:59→21:03)
[2018-02-08] MEDS: IPRATROPIUM-ALBUTEROL 3 ML NEB INHALATION SCH ×4 (08:28→20:54)
[2018-02-08] MEDS: MAGNESIUM HYDROXIDE 2,400 MG/10 ML CUP PO PRN (08:37)
--- NOTE | 2018-02-08 08:37 | P.PN ---
Subjective Progress Note Date: 02/08/18 Principal diagnosis: Status post bypass grafting Progress note dated 02/07/2018 67-year-old male postop day #2, status post four-vessel bypass grafting. The patient had some issues with oxygenation and ventilation initially coming out of the operating room. Yesterday, finally after couple weaning attempts, we will extubate the patient. The patient failed his weaning parameters prior to extubation. The patient has a history of diabetes mellitus, managed by insulin pump, CAD with previous myocardial infarction 2016, with previous stent placement to the LAD, hypertension, hyperlipidemia, sleep apnea syndrome and previous tobacco use. The patient did better yesterday after we switched him to dexmedetomidine and DC his propofol. The patient was having arthritis as well. That was treated with narcotics. In addition, the blood pressure was either high or low throughout the day. Needless to say, I'm very happy that we' re able to get him extubated. Currently, the patient is resting comfortably. The patient is currently on 15 L high flow but that'll be titrated down pending his saturations, receiving lactated Ringer's at 50 mL an hour, Cordarone at 1 mg /m, insulin drip at 6.5 units per hour and nitroglycerin at 5 mics per minute. He did develop atrial fibrillation with RVR last night. He was extubated on February 06. Chest x-ray my opinion show some mild fluid overload. He is awake and alert. Progress note dated 02/08/2018 This is a 67-year-old male, postop day #3, status post four-vessel bypass grafting. The patient had some issues with oxygenation and ventilation initially after the surgery. Eventually, the patient was weaned and extubated. This was a day ago. The patient has a history of diabetes mellitus managed by insulin pump, CAD, with previous myocardial infarction, 2017, previous stent placement to the LAD, hypertension, hyperlipidemia, sleep apnea syndrome and previous tobacco use. Currently, the patient's on O2 with 10 L high flow. He' s getting a saline IV at KVO. Chest x-ray seems to show some mild fluid overload. His CVP is not particularly high. He has not been seen by cardiothoracic as yet. I will let them decide whether or not they want to give him some additional diuretic at this point. Other than that, he is resting comfortably. His Cordarone has been weaned off. Nitroglycerin has been weaned off. Labs x-rays and medications are all reviewed. Objective - Vital Signs Vital signs: Vital Signs Temp 98.8 F 02/08/18 08:00 Pulse 85 02/08/18 08:00 Resp 18 02/08/18 08:00 BP 134/69 02/08/18 08:00 Pulse Ox 95 02/08/18 08:28 Intake & Output 02/07/18 02/08/18 02/08/18 18:59 06:59 18:59 Intake Total 1141.040 350 30 Output Total 475 485 230 Balance 666.040 -135 -200 Weight 119.4 kg 121.1 kg 121.1 kg Intake: IV 360 350 30 Cardiac Output 20 Lactated Ringers 1,000 ml 340 350 30 @ 20 mls/hr IV .Q24H [facility] Rx#:[id number] Intake, IV Titration 131.040 Amount Dexmedetomidine 400 mcg 2.262 In Sodium Chloride 0.9% 100 ml @ Titrate IV .Q0M [facility] Rx#:[id number] Insulin Regular 100 unit 28.778 In Sodium Chloride 0.9% 100 ml @ Per Protocol IV .Q0M [facility] Rx#:[id number] Magnesium Sulfate-D5w Pmx 100 1 gm In Dextrose/Water 1 100ml.bag @ 100 mls/hr IVPB Q1H [facility] Rx#: [id number] Oral 650 Output: Chest Tube Drainage 140 120 30 Chest Tube Mediastinal 10 Chest Tube Right Lateral 20 Chest Left Lateral Chest 110 120 30 Drainage 25 Left Wrist 5 Right Knee 20 Urine 310 365 200 Uretheral (Garcia) 80 Other: Voiding Method Indwelling Catheter Indwelling Catheter Indwelling Catheter ABP, PAP, CO, CI - Last Documented Arterial Blood Pressure 137/62 Pulmonary Artery Pressure 37/16 Cardiac Output 6.8 Cardiac Index 3 - Exam No acute distress, oriented 3. High flow oxygen in place. HEENT examination is grossly unremarkable. Mucous membranes are moist. No oral lesions. Neck supple. Full range of motion. No adenopathy thyromegaly or neck vein distention. Cardiovascular examination reveals regular rhythm rate. S1-S2 normal. No S3 or S4. No discernible murmur noted. Lungs reveal few scattered rhonchi. Breath sounds equal. A few crackles are appreciated. No wheezes.. Abdomen soft bowel sounds are heard. No masses or tenderness. Extremities are intact. No cyanosis clubbing or edema. Skin is without rash or lesion. Neurologic examination is brief but nonfocal. - Labs CBC & Chem 7: 02/08/18 04:50 02/08/18 04:50 Labs: Abnormal Lab Results - Last 24 Hours (Table) 02/07/18 02/07/18 02/07/18 Range/Units 04:20 08:33 09:21 RBC (4.30-5.90) m/uL Hgb (13.0-17.5) gm/dL Hct (39.0-53.0) % Plt Count (150-450) k/uL BUN (9-20) mg/dL Glucose (74-99) mg/dL POC Glucose (mg/dL) 124 H 123 H (75-99) mg/dL Hemoglobin A1c 8.4 H (4.0-6.0) % ALT (21-72) U/L Total Protein (6.3-8.2) g/dL Albumin (3.5-5.0) g/dL 02/07/18 02/07/18 02/07/18 Range/Units 09:41 12:17 13:42 RBC (4.30-5.90) m/uL Hgb (13.0-17.5) gm/dL Hct (39.0-53.0) % Plt Count (150-450) k/uL BUN (9-20) mg/dL Glucose (74-99) mg/dL POC Glucose (mg/dL) 124 H 118 H 165 H (75-99) mg/dL Hemoglobin A1c (4.0-6.0) % ALT (21-72) U/L Total Protein (6.3-8.2) g/dL Albumin (3.5-5.0) g/dL 02/07/18 02/07/18 02/08/18 Range/Units 17:13 21:00 04:50 RBC 3.85 L (4.30-5.90) m/uL Hgb 11.0 L (13.0-17.5) gm/dL Hct 33.7 L (39.0-53.0) % Plt Count 135 L (150-450) k/uL BUN (9-20) mg/dL Glucose (74-99) mg/dL POC Glucose (mg/dL) 168 H 178 H (75-99) mg/dL Hemoglobin A1c (4.0-6.0) % ALT (21-72) U/L Total Protein (6.3-8.2) g/dL Albumin (3.5-5.0) g/dL 02/08/18 02/08/18 02/08/18 Range/Units 04:50 07:01 07:42 RBC (4.30-5.90) m/uL Hgb (13.0-17.5) gm/dL Hct (39.0-53.0) % Plt Count (150-450) k/uL BUN 23 H (9-20) mg/dL Glucose 199 H (74-99) mg/dL POC Glucose (mg/dL) 170 H 201 H (75-99) mg/dL Hemoglobin A1c (4.0-6.0) % ALT 11 L (21-72) U/L Total Protein 5.4 L (6.3-8.2) g/dL Albumin 3.4 L (3.5-5.0) g/dL Assessment and Plan Assessment: Assessment Postop day #3, status post three-vessel bypass grafting Status post postoperative respiratory failure, resolved, the postoperative period being complicated by both hypoxemic and hypercapnia. History of CAD with previous myocardial infarction, 2017 and previous stent placement in the proximal LAD History of diabetes mellitus, type I, with intensive therapy via insulin pump History of hypertension Hyperlipidemia by history History of sleep apnea syndrome Previous history of tobacco use Plan: Plan dated 02/06/2018 We'll transition the patient from propofol to Precedex. The patient will be given IV acetaminophen for temperature control and IV morphine for control of Love's. The patient's Cleviprex was increased for blood pressure control. Additional recommendations and suggestions are forthcoming. Hopefully, we'll be able to wean and extubate this patient this morning. Oxygenation is improved. Labs x-rays and medications are all reviewed. Plan dated 02/07/2018 The patient did seem to improve and settle down once we switch him from propofol to Precedex. The patient was given additional IV acetaminophen for temperature control and IV morphine/fentanyl for control of rigors. The patient failed weaning attempts and weaning parameters earlier today but right around changes shift, the patient seemed to do better get the patient extubated. The patient is now on 15 L high flow which can be titrated down. We 'll continue to follow closely. He did develop atrial fibrillation with RVR last night and placed on Cordarone 1 mg/m. He remains on insulin drip at 6.5 units per hour and nitroglycerin at 5 mcg/m. Critical care time 39 minutes Plan dictated 02/08/2018 The patient seemed be doing better. His progress is slow low. His oxygen has been weaned from 15 L to 10 L high flow. He's getting a saline IV at KVO. Chest x-ray seems to show fluid overload. CVP is not particularly high. The patient looks stable to me. Additional recommendations and suggestions are forthcoming. All drips have been weaned off. Additional recommendations and suggestions are forthcoming. Critical care time is 32 minutes Time with Patient: Greater than 30
[2018-02-08] MEDS: MUPIROCIN 2% OINT 22 GM TUBE NASAL SCH ×2 (08:38→21:04)
[2018-02-08] MEDS: guaiFENesin 600 MG TABLET.ER PO SCH ×2 (10:03→21:44)
[2018-02-08 11:12] LABS: Glucose,Whole Blood 162 mg/dL (75-99)
--- NOTE | 2018-02-08 11:29 | P.PN ---
Subjective Progress Note Date: 02/08/18 Principal diagnosis: Triple-vessel coronary artery disease, status post remote stenting of his left anterior descending coronary artery twice in March 2016, mild left ventricular dysfunction, hypertension, hyperlipidemia, obstructive sleep apnea status post surgical revision and no current CPAP use, insulin-dependent diabetes mellitus managed with home insulin pump, varicose veins and remote history of tobacco dependence quit smoking 30-40 years ago. POD #3 coronary artery bypass grafting 3 using the left internal mammary artery to the left anterior descending coronary artery, left radial artery from the aorta to the second obtuse marginal coronary artery, a reverse greater saphenous vein graft from the aorta to the right coronary artery, endoscopic harvesting of the left radial artery, endoscopic harvesting of the right greater saphenous vein from knee to ankle level, intraoperative transesophageal echocardiogram and epi-aortic scanning, intraoperative graft flow measurement using the [employer] System. Postoperative paroxysmal atrial fibrillation, an expected outcome of surgery. Postoperative respiratory failure, resolved, postoperative period being complicated by both hypoxemic and hypercapnia, an unexpected but potential outcome of surgery. Patient is sitting up to the bedside chair. He is in no acute distress. He denies any complaints of pain or shortness of breath at this time. He is alert and oriented 3 but reports he has been having episodes of hallucinations. He reports that he is sometimes seen in the wall move in his room. He is been ambulating in the intensive care unit hallway with minimal assistance. Objective - Vital Signs Vital signs: Vital Signs Temp 98.2 F 02/08/18 09:00 Pulse 74 02/08/18 09:00 Resp 18 02/08/18 09:00 BP 113/65 02/08/18 09:00 Pulse Ox 95 02/08/18 09:00 Intake & Output 02/07/18 02/08/18 02/08/18 18:59 06:59 18:59 Intake Total 1141.040 350 30 Output Total 475 485 210 Balance 666.040 -135 -180 Weight 119.4 kg 121.1 kg 121.1 kg Intake: IV 360 350 30 Cardiac Output 20 Lactated Ringers 1,000 ml 340 350 30 @ 20 mls/hr IV .Q24H [facility] Rx#:[id number] Intake, IV Titration 131.040 Amount Dexmedetomidine 400 mcg 2.262 In Sodium Chloride 0.9% 100 ml @ Titrate IV .Q0M [facility] Rx#:[id number] Insulin Regular 100 unit 28.778 In Sodium Chloride 0.9% 100 ml @ Per Protocol IV .Q0M [facility] Rx#:[id number] Magnesium Sulfate-D5w Pmx 100 1 gm In Dextrose/Water 1 100ml.bag @ 100 mls/hr IVPB Q1H [facility] Rx#: [id number] Oral 650 Output: Chest Tube Drainage 140 120 20 Chest Tube Mediastinal 10 Chest Tube Right Lateral 20 Chest Left Lateral Chest 110 120 20 Drainage 25 Left Wrist 5 Right Knee 20 Urine 310 365 190 Uretheral (Garcia) 40 Other: Voiding Method Indwelling Catheter Indwelling Catheter Indwelling Catheter ABP, PAP, CO, CI - Last Documented Arterial Blood Pressure 138/64 Pulmonary Artery Pressure 37/16 Cardiac Output 6.8 Cardiac Index 3 - Constitutional General appearance: Present: cooperative, no acute distress, obese - Respiratory Details: Lungs sounds essentially clear to his bilateral upper lobes, few scattered crackles to his bilateral bases. Respirations are symmetrical and nonlabored. Oxygen saturation are 97% on 5 L nasal cannula. He is achieving 1000 mL on his incentive spirometry with encouragement. Left pleural chest tube remains to low continuous wall suction -20 cm H2O. No air leak present. Draining thin serosanguineous drainage. 60 mL output in the last 8 hours, 200 mL output in the last 24 hours. - Cardiovascular Details: Regular rhythm and rate. S1 and S2 present, negative for S3, gallop or murmur. Sternum is stable. Bedside telemetry showing normal sinus rhythm heart rate 78. No further episodes of atrial fibrillation. Heart hugger is in place and he is demonstrating appropriate use. Knee-high SERG hose and sequential compression devices in place to his bilateral lower extremities. Atrial and ventricular epicardial pacemaker wires and placing grounded. - Gastrointestinal Gastrointestinal Comment(s): Abdomen soft, nontender and nondistended. Hypoactive bowel sounds to all 4 abdominal quadrants. Tolerating oral intake. Passing flatus. - Genitourinary Genitourinary Comment(s): Garcia catheter for accurate I&O. Draining clear yellow urine. 250 mL output the last 8 hours. - Integumentary Integumentary Comment(s): Skin is warm and dry. No clubbing or cyanosis present. Midline sternal incision clean dry and approximated. No drainage or redness present. Dermabond dressing clean and dry. Left arm radial artery harvesting sites clean dry and approximated. No drainage or redness present. Left ulnar pulse palpable. Right leg EVH harvest sites clean dry and approximated. No drainage or redness present. - Neurologic Neurologic: Present: CNII-XII intact - Musculoskeletal Musculoskeletal: Present: gait normal, strength equal bilaterally - Psychiatric Psychiatric: Present: A&O x's 3, appropriate affect, intact judgment & insight - Allied health notes Allied health notes reviewed: nursing - Labs CBC & Chem 7: 02/08/18 04:50 02/08/18 04:50 Labs: Abnormal Lab Results - Last 24 Hours (Table) 02/07/18 02/07/18 02/07/18 Range/Units 04:20 09:21 09:41 RBC (4.30-5.90) m/uL Hgb (13.0-17.5) gm/dL Hct (39.0-53.0) % Plt Count (150-450) k/uL BUN (9-20) mg/dL Glucose (74-99) mg/dL POC Glucose (mg/dL) 123 H 124 H (75-99) mg/dL Hemoglobin A1c 8.4 H (4.0-6.0) % ALT (21-72) U/L Total Protein (6.3-8.2) g/dL Albumin (3.5-5.0) g/dL 02/07/18 02/07/18 02/07/18 Range/Units 12:17 13:42 17:13 RBC (4.30-5.90) m/uL Hgb (13.0-17.5) gm/dL Hct (39.0-53.0) % Plt Count (150-450) k/uL BUN (9-20) mg/dL Glucose (74-99) mg/dL POC Glucose (mg/dL) 118 H 165 H 168 H (75-99) mg/dL Hemoglobin A1c (4.0-6.0) % ALT (21-72) U/L Total Protein (6.3-8.2) g/dL Albumin (3.5-5.0) g/dL 02/07/18 02/08/18 02/08/18 Range/Units 21:00 04:50 04:50 RBC 3.85 L (4.30-5.90) m/uL Hgb 11.0 L (13.0-17.5) gm/dL Hct 33.7 L (39.0-53.0) % Plt Count 135 L (150-450) k/uL BUN 23 H (9-20) mg/dL Glucose 199 H (74-99) mg/dL POC Glucose (mg/dL) 178 H (75-99) mg/dL Hemoglobin A1c (4.0-6.0) % ALT 11 L (21-72) U/L Total Protein 5.4 L (6.3-8.2) g/dL Albumin 3.4 L (3.5-5.0) g/dL 02/08/18 02/08/18 Range/Units 07:01 07:42 RBC (4.30-5.90) m/uL Hgb (13.0-17.5) gm/dL Hct (39.0-53.0) % Plt Count (150-450) k/uL BUN (9-20) mg/dL Glucose (74-99) mg/dL POC Glucose (mg/dL) 170 H 201 H (75-99) mg/dL Hemoglobin A1c (4.0-6.0) % ALT (21-72) U/L Total Protein (6.3-8.2) g/dL Albumin (3.5-5.0) g/dL - Imaging and Cardiology Chest x-ray: report reviewed, image reviewed Assessment and Plan (1) History of obstructive sleep apnea Current Visit: No Status: Acute Code(s): Z86.69 - PERSONAL HISTORY OF DIS OF THE NERVOUS SYS AND SENSE ORGANS SNOMED Code(s): 112638050 (2) Coronary artery disease Current Visit: No Status: Chronic Code(s): I25.10 - ATHSCL HEART DISEASE OF [place] CORONARY ARTERY W/O ANG PCTRS SNOMED Code(s): 73033662 (3) Family history of premature coronary artery disease Current Visit: No Status: Chronic Code(s): Z82.49 - FAMILY HX OF ISCHEM HEART DIS AND OTH DIS OF THE CIRC SYS SNOMED Code(s): 327727246 (4) History of coronary artery stent placement Current Visit: No Status: Chronic Code(s): Z95.5 - PRESENCE OF CORONARY ANGIOPLASTY IMPLANT AND GRAFT SNOMED Code(s): 017808141 (5) Hyperlipidemia Current Visit: No Status: Chronic Code(s): E78.5 - HYPERLIPIDEMIA, UNSPECIFIED SNOMED Code(s): 71756647 (6) Hypertension Current Visit: No Status: Chronic Code(s): I10 - ESSENTIAL (PRIMARY) HYPERTENSION SNOMED Code(s): 38627720 (7) Insulin dependent diabetes mellitus Current Visit: No Status: Chronic Code(s): E11.9 - TYPE 2 DIABETES MELLITUS WITHOUT COMPLICATIONS; Z79.4 - HIGH SCALER (CURRENT) USE OF INSULIN SNOMED Code( s): 41851191 (8) Obesity (BMI 30-39.9) Current Visit: No Status: Chronic Code(s): E66.9 - OBESITY, UNSPECIFIED SNOMED Code(s): 394104810 (9) History of myocardial infarction Current Visit: No Status: Resolved Code(s): I25.2 - OLD MYOCARDIAL INFARCTION SNOMED Code(s): 277363583 (10) Tobacco dependence in remission Current Visit: No Status: Resolved Code(s): F17.201 - NICOTINE DEPENDENCE, UNSPECIFIED, IN REMISSION SNOMED Code(s): 225051376 Plan: 1. Continue aspirin, statin, subcu heparin, and beta lauri. We will increase his metoprolol tartrate to 50 mg by mouth twice a day. 2. Pulmonary management per Dr. Dorado. 3. Continue Cardizem 30 mg by mouth every 6 hours. Do not stop Cardizem due to radial harvest. 4. GI and DVT prophylaxis. 5. Increase activity as tolerated, physical, occupational therapy and cardiac rehab following. 6. Discontinue left pleural chest tube. 7. Discontinue Garcia catheter. 8. Blood sugar management per primary care service. Start home insulin pump when okay with primary care service. 9. Will monitor daily labs and chest x-rays. 10. Discontinue right IJ Cordis. 11. Encourage use of his incentive spirometry every hour while awake. 12. Continue amiodarone 400 mg by mouth twice a day for atrial fib ablation prophylaxis. 13. We will add Mucinex 1200 mg by mouth twice a day. 14. More recommendations to follow based on the patient's clinical course. Time with Patient: Greater than 30
[2018-02-08] MEDS ORDERED: METOPROLOL TARTRATE 25 MG TAB PO STA (11:30)
--- NOTE | 2018-02-08 13:48 | P.PN ---
Subjective Progress Note Date: 02/08/18 67-year-old male who underwent CABG 3 on 02/05/[address] Miles was consulted for medical management. The patient has a history of COPD, coronary artery disease with 4 stents, diabetes mellitus utilizing insulin pump, hyperlipidemia, hypertension, myocardial infarction, and sleep apnea. He does not utilize a CPAP machine. He is a former cigarette smoker and quit smoking in 1984. Patient smoked 2 packs per day. 02/06/2018 The patient was seen and examined in the intensive care unit this morning by Dr. Miles. The patient remains sedated and intubated. Patient remains on insulin drip. Blood sugars are well controlled and ranging from 118-138. 02/07/2018 Patient seen and examined at the bedside on rounds with Dr. Miles. Patient remains in the ICU. Patient was extubated yesterday. Patient is currently on 15L oxygen. Saturations greater than 92%. Patient is coughing frequently and voices that his chest is sore. Heart hugger in place. Patient remains on insulin drip this morning per protocol. 02/08/2018 Patient seen and examined at the bedside in the intensive care unit by Dr. Miles. Patient is POD #3 CABG. Patient is awake and alert. He is on 5L NC with oxygen saturations greater than 92%. He continues to have occasional productive cough. Insulin drip was discontinued yesterday. Blood sugars over the last 24 hours range from 94-201. He is currently on novolog sliding scale, 10 units novolog with meals, and 30 units levemir at HS. Objective - Vital Signs Vital signs: Vital Signs Temp 98.2 F 02/08/18 09:00 Pulse 74 02/08/18 09:00 Resp 18 02/08/18 09:00 BP 113/65 02/08/18 09:00 Pulse Ox 95 02/08/18 09:00 Intake & Output 02/07/18 02/08/18 02/08/18 18:59 06:59 18:59 Intake Total 1141.040 350 30 Output Total 475 485 210 Balance 666.040 -135 -180 Weight 119.4 kg 121.1 kg 121.1 kg Intake: IV 360 350 30 Cardiac Output 20 Lactated Ringers 1,000 ml 340 350 30 @ 20 mls/hr IV .Q24H [facility] Rx#:[id number] Intake, IV Titration 131.040 Amount Dexmedetomidine 400 mcg 2.262 In Sodium Chloride 0.9% 100 ml @ Titrate IV .Q0M [facility] Rx#:[id number] Insulin Regular 100 unit 28.778 In Sodium Chloride 0.9% 100 ml @ Per Protocol IV .Q0M [facility] Rx#:[id number] Magnesium Sulfate-D5w Pmx 100 1 gm In Dextrose/Water 1 100ml.bag @ 100 mls/hr IVPB Q1H [facility] Rx#: [id number] Oral 650 Output: Chest Tube Drainage 140 120 20 Chest Tube Mediastinal 10 Chest Tube Right Lateral 20 Chest Left Lateral Chest 110 120 20 Drainage 25 Left Wrist 5 Right Knee 20 Urine 310 365 190 Uretheral (Garcia) 40 Other: Voiding Method Indwelling Catheter Indwelling Catheter Indwelling Catheter ABP, PAP, CO, CI - Last Documented Arterial Blood Pressure 138/64 Pulmonary Artery Pressure 37/16 Cardiac Output 6.8 Cardiac Index 3 - Exam GENERAL: This is a 67-year-old male in no apparent distress at the time of examination. Pleasant and cooperative. HEENT: Head is atraumatic, normocephalic. Pupils are equal, round, and reactive to light. Sclerae anicteric. Conjunctivae are clear. Mucus membranes of the mouth are moist. Neck is supple. RESPIRATORY: Some scattered rhonchi noted. No wheezing. Frequently coughing. No use of accessory muscles. Patient maintaining oxygen saturation greater than 92 % on 5L. CARDIOVASCULAR: Mediastinal and pleural chest tubes noted. Regular rate and rhythm. S1 and S2 noted. No systolic or diastolic murmur auscultated. No JVD noted. No S3 or S4 noted. GASTROINTESTINAL: No distention noted. Abdomen soft and round. Normal active bowel sounds auscultated x 4 quadrants. No pain or tenderness noted upon palpation. INTEGUMENTARY: Dressing to chest CDI. JONAS drain noted to upper and lower extremity with serosanguineous drainage. No cyanosis. No jaundice. No rashes noted. No cellulitis noted. EXTREMITIES: 2+ peripheral pulses. No evidence of peripheral edema. No calf tenderness noted. NEUROLOGIC: Cranial nerves II-XII intact. PSYCHIATRIC: Awake, alert, and oriented X 3. Appropriate affect. Intact judgement and insight. - Labs CBC & Chem 7: 02/08/18 04:50 02/08/18 04:50 Labs: Abnormal Lab Results - Last 24 Hours (Table) 02/07/18 02/07/18 02/07/18 Range/Units 04:20 09:21 09:41 RBC (4.30-5.90) m/uL Hgb (13.0-17.5) gm/dL Hct (39.0-53.0) % Plt Count (150-450) k/uL BUN (9-20) mg/dL Glucose (74-99) mg/dL POC Glucose (mg/dL) 123 H 124 H (75-99) mg/dL Hemoglobin A1c 8.4 H (4.0-6.0) % ALT (21-72) U/L Total Protein (6.3-8.2) g/dL Albumin (3.5-5.0) g/dL 02/07/18 02/07/18 02/07/18 Range/Units 12:17 13:42 17:13 RBC (4.30-5.90) m/uL Hgb (13.0-17.5) gm/dL Hct (39.0-53.0) % Plt Count (150-450) k/uL BUN (9-20) mg/dL Glucose (74-99) mg/dL POC Glucose (mg/dL) 118 H 165 H 168 H (75-99) mg/dL Hemoglobin A1c (4.0-6.0) % ALT (21-72) U/L Total Protein (6.3-8.2) g/dL Albumin (3.5-5.0) g/dL 02/07/18 02/08/18 02/08/18 Range/Units 21:00 04:50 04:50 RBC 3.85 L (4.30-5.90) m/uL Hgb 11.0 L (13.0-17.5) gm/dL Hct 33.7 L (39.0-53.0) % Plt Count 135 L (150-450) k/uL BUN 23 H (9-20) mg/dL Glucose 199 H (74-99) mg/dL POC Glucose (mg/dL) 178 H (75-99) mg/dL Hemoglobin A1c (4.0-6.0) % ALT 11 L (21-72) U/L Total Protein 5.4 L (6.3-8.2) g/dL Albumin 3.4 L (3.5-5.0) g/dL 02/08/18 02/08/18 Range/Units 07:01 07:42 RBC (4.30-5.90) m/uL Hgb (13.0-17.5) gm/dL Hct (39.0-53.0) % Plt Count (150-450) k/uL BUN (9-20) mg/dL Glucose (74-99) mg/dL POC Glucose (mg/dL) 170 H 201 H (75-99) mg/dL Hemoglobin A1c (4.0-6.0) % ALT (21-72) U/L Total Protein (6.3-8.2) g/dL Albumin (3.5-5.0) g/dL Assessment and Plan Plan: ASSESSMENT: S/P CABG x 3, POD #3 Coronary artery disease with previous stent placement x 4 Insulin-dependent diabetes mellitus, hemoglobin A1c 8.8% Hypertension Hyperlipidemia Obstructive sleep apnea History of nicotine dependence Obesity: BMI 37.2 PLAN: Continue postoperative care per Dr. More Give 5 units novolog now Increase novolog with meals to 15 units Increase Levemir to 55 units at HS Novolog sliding scale ACHS Maintain tight glucose control. Will make adjustments to insulin regimen depending on glucose trends Ideally, would like to resume patients home insulin pump. May start tomorrow if patients hallucinations improve and patient is able to operate pump and make adjustments as needed Further recommendations pending patient's course Nurse practitioner note has been reviewed by physician. Signing provider agrees with the documented findings, assessment, and plan of care.
[2018-02-08] MEDS: LACTATED RINGERS 1,000 ML IV SCH (14:32)
[2018-02-08 17:14] LABS: Glucose,Whole Blood 128 mg/dL (75-99)
[2018-02-08] MEDS ORDERED: ACETAMINOPHEN TAB 500 MG TAB PO PRN (20:04)
[2018-02-08 20:59] LABS: Glucose,Whole Blood 165 mg/dL (75-99)
[2018-02-08] MEDS: INSULIN DETEMIR 100 UNIT/ML 10 ML VIAL SQ SCH (21:02)
[2018-02-08] MEDS: METOPROLOL TARTRATE 50 MG TAB PO SCH (21:03)
[2018-02-08] MEDS: SENNOSIDES-DOCUSATE SODIUM 1 EACH TAB PO SCH (21:05)
[2018-02-09] MEDS: HYDROcodone/APAP 5-325MG 1 EACH TAB PO PRN ×3 (00:33→18:36)
[2018-02-09] MEDS: HEPARIN SODIUM,PORCINE 5,000 UNIT/ML 1 ML VIAL SQ SCH ×3 (00:33→16:39)
[2018-02-09] MEDS: BENZOCAINE/MENTHOL LOZENG 1 EACH LOZENGE MUCOUS MEM PRN ×4 (00:34→22:57)
[2018-02-09 05:59] LABS: Basophils % (A) 0 %; Eosinophils # (A) 0.2 k/uL (0-0.7); Eosinophils % (A) 3 %; HGB 10.9 gm/dL (13.0-17.5); Hypochromasia Slight; Lymphocytes # (A) 1.1 k/uL (1.0-4.8); Lymphocytes % (A) 20 %; MCH 28.2 pg (25.0-35.0); MCV 88.3 fL (80.0-100.0); Mean Platelet Volume 7.9; Monocytes # (A) 0.5 k/uL (0-1.0); Monocytes % (A) 8 %; Neutrophils # (A) 3.6 k/uL (1.3-7.7); Neutrophils % (A) 66 %; Platelet Count 159 k/uL (150-450); RBC 3.85 m/uL (4.30-5.90); RDW 14.9 % (11.5-15.5); WBC 5.5 k/uL (3.8-10.6)
[2018-02-09 06:23] LABS: Ionized Calcium 4.9 mg/dL (4.5-5.3)
[2018-02-09] MEDS: LEVOTHYROXINE 50 MCG TAB PO SCH (06:26)
[2018-02-09 06:40] LABS: Albumin 3.3 g/dL (3.5-5.0); Calcium 9.1 mg/dL (8.4-10.2); Magnesium 2.4 mg/dL (1.6-2.3); Potassium 4.2 mmol/L (3.5-5.1); Total Bilirubin 0.6 mg/dL (0.2-1.3); Total Protein 5.5 g/dL (6.3-8.2)
--- NOTE | 2018-02-09 06:55 | XR ---
EXAMINATION TYPE: XR chest 1V portable DATE OF EXAM: 02/09/2018 HISTORY: Post Operative Cardiac Surgery. REFERENCE: Previous study dated 02/08/2018. FINDINGS: There has been a midline sternotomy. The patient's right internal jugular catheter has been removed. The heart remains enlarged. There is bibasilar atelectasis. There is a small left effusion. IMPRESSION: CONTINUING POSTOPERATIVE CHANGE.
[2018-02-09 06:59] LABS: Glucose,Whole Blood 104 mg/dL (75-99)
[2018-02-09] MEDS: INSULIN ASPART 100 UNIT/ML 1 ML 10 ML VIAL SQ SCH ×7 (08:08→21:51)
[2018-02-09] MEDS: IPRATROPIUM-ALBUTEROL 3 ML NEB INHALATION SCH ×4 (08:15→21:14)
[2018-02-09] MEDS: CLOPIDOGREL 75 MG TAB PO SCH (08:28)
[2018-02-09] MEDS: ATORVASTATIN 40 MG TAB PO SCH (08:28)
[2018-02-09] MEDS: AMIODARONE 200 MG TAB PO SCH ×2 (08:29→20:23)
[2018-02-09] MEDS: DILTIAZEM ORAL 30 MG TAB PO SCH ×4 (08:29→21:51)
[2018-02-09] MEDS: ASPIRIN 325 MG TAB PO SCH (08:29)
[2018-02-09] MEDS: guaiFENesin 600 MG TABLET.ER PO SCH (08:29)
[2018-02-09] MEDS: PANTOPRAZOLE 40 MG TABLET PO SCH (08:29)
[2018-02-09] MEDS: METOPROLOL TARTRATE 50 MG TAB PO SCH ×2 (08:30→20:23)
[2018-02-09] MEDS: PROMETHAZ-COD 6.25-10 MG/5 ML 5 ML CUP PO PRN ×3 (10:14→22:57)
[2018-02-09] MEDS: BENZONATATE 100 MG CAP PO SCH ×3 (10:15→21:51)
--- NOTE | 2018-02-09 11:46 | P.PN ---
Subjective Progress Note Date: 02/09/18 Principal diagnosis: Triple-vessel coronary artery disease, status post remote stenting of his left anterior descending coronary artery twice in March 2016, mild left ventricular dysfunction, hypertension, hyperlipidemia, obstructive sleep apnea status post surgical revision and no current CPAP use, insulin-dependent diabetes mellitus managed with home insulin pump, varicose veins and remote history of tobacco dependence quit smoking 30-40 years ago. POD #4 coronary artery bypass grafting 3 using the left internal mammary artery to the left anterior descending coronary artery, left radial artery from the aorta to the second obtuse marginal coronary artery, a reverse greater saphenous vein graft from the aorta to the right coronary artery, endoscopic harvesting of the left radial artery, endoscopic harvesting of the right greater saphenous vein from knee to ankle level, intraoperative transesophageal echocardiogram and epi-aortic scanning, intraoperative graft flow measurement using the [employer] System. Postoperative paroxysmal atrial fibrillation, an expected outcome of surgery. Postoperative respiratory failure, resolved, postoperative period being complicated by both hypoxemic and hypercapnia, an unexpected but potential outcome of surgery. Patient is sitting up to the bedside chair. He is in no acute distress. He denies any complaints of pain or shortness of breath at this time. He reports that he has been having episodes of coughing throughout the night. Oxygen saturation are 98% on room air, he is achieving 1000 mL on his incentive spirometry with encouragement. Objective - Vital Signs Vital signs: Vital Signs Temp 98.9 F 02/09/18 08:00 Pulse 81 02/09/18 11:00 Resp 25 H 02/09/18 11:00 BP 124/74 02/09/18 11:00 Pulse Ox 98 02/09/18 11:00 Intake & Output 02/08/18 02/09/18 02/09/18 18:59 06:59 18:59 Intake Total 505 200 450 Output Total 540 1000 400 Balance -35 -800 50 Weight 121.1 kg 120.4 kg Intake: IV 30 Lactated Ringers 1,000 ml 30 @ 20 mls/hr IV .Q24H [facility] Rx#:[id number] Oral 475 200 450 Output: Chest Tube Drainage 30 Left Lateral Chest 30 Urine 510 1000 400 Uretheral (Garcia) 40 Other: Voiding Method Urinal Urinal Urinal # Voids 1 ABP, PAP, CO, CI - Last Documented Arterial Blood Pressure 155/71 Pulmonary Artery Pressure 37/16 Cardiac Output 6.8 Cardiac Index 3 - Constitutional General appearance: Present: cooperative, no acute distress, obese - Respiratory Details: Lungs sounds essentially clear throughout, diminished to his bilateral bases. Respirations are symmetrical and nonlabored. Oxygen saturation are 98% on room air. He is achieving 1000 mL on his incentive spirometry. - Cardiovascular Details: Regular rhythm and rate. S1 and S2 present, negative for S3, gallop or murmur. Sternum is stable. Bedside telemetry showing normal sinus rhythm heart rate 80. Atrial and ventricular epicardial pacemaker wires in place and grounded. Heart hugger is in place and he is demonstrating appropriate use. Knee-high SERG hose and sequential compression devices in place to his bilateral lower extremities. - Gastrointestinal Gastrointestinal Comment(s): Abdomen is soft, nontender and nondistended. Active bowel sounds to all 4, quadrants. Passing flatus. Tolerating oral intake. - Genitourinary Genitourinary Comment(s): Voiding clear yellow urine. Adequate urine output. 1000 mL in the last 8 hours. - Integumentary Integumentary Comment(s): Skin is warm and dry. No clubbing or cyanosis. Midline sternal incision clean dry and approximated. No redness or drainage present. Dermabond dressing clean and dry. Left arm radial harvest sites clean dry and approximated. No redness or drainage present. Right leg EVH site clean dry and approximated. No redness or drainage present. - Neurologic Neurologic: Present: CNII-XII intact - Musculoskeletal Musculoskeletal: Present: gait normal, strength equal bilaterally - Psychiatric Psychiatric: Present: A&O x's 3, appropriate affect, intact judgment & insight - Labs CBC & Chem 7: 02/09/18 05:35 02/09/18 05:35 Labs: Abnormal Lab Results - Last 24 Hours (Table) 02/08/18 02/08/18 02/09/18 Range/Units 17:12 20:58 05:35 RBC 3.85 L (4.30-5.90) m/uL Hgb 10.9 L (13.0-17.5) gm/dL Hct 34.0 L (39.0-53.0) % BUN (9-20) mg/dL Glucose (74-99) mg/dL POC Glucose (mg/dL) 128 H 165 H (75-99) mg/dL Magnesium (1.6-2.3) mg/dL ALT (21-72) U/L Total Protein (6.3-8.2) g/dL Albumin (3.5-5.0) g/dL 02/09/18 02/09/18 Range/Units 05:35 06:58 RBC (4.30-5.90) m/uL Hgb (13.0-17.5) gm/dL Hct (39.0-53.0) % BUN 22 H (9-20) mg/dL Glucose 107 H (74-99) mg/dL POC Glucose (mg/dL) 104 H (75-99) mg/dL Magnesium 2.4 H (1.6-2.3) mg/dL ALT 15 L (21-72) U/L Total Protein 5.5 L (6.3-8.2) g/dL Albumin 3.3 L (3.5-5.0) g/dL Microbiology - Last 24 Hours (Table) 02/08/18 10:12 Gram Stain - Preliminary Sputum - Imaging and Cardiology Chest x-ray: report reviewed, image reviewed Assessment and Plan (1) History of obstructive sleep apnea Current Visit: No Status: Acute Code(s): Z86.69 - PERSONAL HISTORY OF DIS OF THE NERVOUS SYS AND SENSE ORGANS SNOMED Code(s): 859597143 (2) Coronary artery disease Current Visit: No Status: Chronic Code(s): I25.10 - ATHSCL HEART DISEASE OF [place] CORONARY ARTERY W/O ANG PCTRS SNOMED Code(s): 44181107 (3) Family history of premature coronary artery disease Current Visit: No Status: Chronic Code(s): Z82.49 - FAMILY HX OF ISCHEM HEART DIS AND OTH DIS OF THE CIRC SYS SNOMED Code(s): 421747498 (4) History of coronary artery stent placement Current Visit: No Status: Chronic Code(s): Z95.5 - PRESENCE OF CORONARY ANGIOPLASTY IMPLANT AND GRAFT SNOMED Code(s): 652624357 (5) Hyperlipidemia Current Visit: No Status: Chronic Code(s): E78.5 - HYPERLIPIDEMIA, UNSPECIFIED SNOMED Code(s): 76814293 (6) Hypertension Current Visit: No Status: Chronic Code(s): I10 - ESSENTIAL (PRIMARY) HYPERTENSION SNOMED Code(s): 69215979 (7) Insulin dependent diabetes mellitus Current Visit: No Status: Chronic Code(s): E11.9 - TYPE 2 DIABETES MELLITUS WITHOUT COMPLICATIONS; Z79.4 - INDUSTRIAL ROBOTICS MECHANIC (CURRENT) USE OF INSULIN SNOMED Code( s): 26594138 (8) Obesity (BMI 30-39.9) Current Visit: No Status: Chronic Code(s): E66.9 - OBESITY, UNSPECIFIED SNOMED Code(s): 047640951 (9) History of myocardial infarction Current Visit: No Status: Resolved Code(s): I25.2 - OLD MYOCARDIAL INFARCTION SNOMED Code(s): 871568984 (10) Tobacco dependence in remission Current Visit: No Status: Resolved Code(s): F17.201 - NICOTINE DEPENDENCE, UNSPECIFIED, IN REMISSION SNOMED Code(s): 940117719 Plan: 1. Continue aspirin, statin, subcu heparin, and beta lauri. We will increase his beta lauri as tolerated. 2. Pulmonary management per Dr. Dorado. 3. Continue Cardizem 30 mg by mouth every 6 hours. Do not stop Cardizem due to radial harvest. 4. GI and DVT prophylaxis. 5. Increase activity as tolerated, physical, occupational therapy and cardiac rehab following. 6. Dr. Dorado added Phenergan With Codeine and Tessalon pearls for his coughing episodes 7. Encourage use of his incentive spirometry every hour while awake. 8. Blood sugar management per primary care service. Start home insulin pump when okay with primary care service. 9. Will monitor daily labs and chest x-rays. 10. Continue amiodarone 400 mg by mouth twice a day for atrial fib ablation prophylaxis. 11. More recommendations to follow based on the patient's clinical course. We will transfer the patient to [address] [place] [id number]. Time with Patient: Greater than 30
--- NOTE | 2018-02-09 11:50 | P.PN ---
Subjective Progress Note Date: 02/09/18 Principal diagnosis: Status post bypass grafting Progress note dated 02/07/2018 67-year-old male postop day #2, status post four-vessel bypass grafting. The patient had some issues with oxygenation and ventilation initially coming out of the operating room. Yesterday, finally after couple weaning attempts, we will extubate the patient. The patient failed his weaning parameters prior to extubation. The patient has a history of diabetes mellitus, managed by insulin pump, CAD with previous myocardial infarction 2016, with previous stent placement to the LAD, hypertension, hyperlipidemia, sleep apnea syndrome and previous tobacco use. The patient did better yesterday after we switched him to dexmedetomidine and DC his propofol. The patient was having arthritis as well. That was treated with narcotics. In addition, the blood pressure was either high or low throughout the day. Needless to say, I'm very happy that we' re able to get him extubated. Currently, the patient is resting comfortably. The patient is currently on 15 L high flow but that'll be titrated down pending his saturations, receiving lactated Ringer's at 50 mL an hour, Cordarone at 1 mg /m, insulin drip at 6.5 units per hour and nitroglycerin at 5 mics per minute. He did develop atrial fibrillation with RVR last night. He was extubated on February 06. Chest x-ray my opinion show some mild fluid overload. He is awake and alert. Progress note dated 02/08/2018 This is a 67-year-old male, postop day #3, status post four-vessel bypass grafting. The patient had some issues with oxygenation and ventilation initially after the surgery. Eventually, the patient was weaned and extubated. This was a day ago. The patient has a history of diabetes mellitus managed by insulin pump, CAD, with previous myocardial infarction, 2017, previous stent placement to the LAD, hypertension, hyperlipidemia, sleep apnea syndrome and previous tobacco use. Currently, the patient's on O2 with 10 L high flow. He' s getting a saline IV at KVO. Chest x-ray seems to show some mild fluid overload. His CVP is not particularly high. He has not been seen by cardiothoracic as yet. I will let them decide whether or not they want to give him some additional diuretic at this point. Other than that, he is resting comfortably. His Cordarone has been weaned off. Nitroglycerin has been weaned off. Labs x-rays and medications are all reviewed. Progress note dated 02/09/2018. 67-year-old male, postop day #4, status post four-vessel bypass grafting. The patient had some initial issues with both oxygenation and ventilation postsurgically. The eventually resolved. He was weaned and extubated. The patient is doing relatively well now. He has a history of diabetes managed by insulin pump CAD previous myocardial infarction and stent placement 2017 hypertension hyperlipidemia sleep apnea syndrome previous tobacco use. The patient's is in the room with him. His only issue right now is a lot of coughing. We had some Tessalon Perles and some codeine containing cough syrup for that. Other than that, he seemed to do relatively well. He is currently receiving O2 at 2 L and no IV. Objective - Vital Signs Vital signs: Vital Signs Temp 98.9 F 02/09/18 08:00 Pulse 81 02/09/18 11:00 Resp 25 H 02/09/18 11:00 BP 124/74 02/09/18 11:00 Pulse Ox 98 02/09/18 11:00 Intake & Output 02/08/18 02/09/18 02/09/18 18:59 06:59 18:59 Intake Total 505 200 450 Output Total 540 1000 400 Balance -35 -800 50 Weight 121.1 kg 120.4 kg Intake: IV 30 Lactated Ringers 1,000 ml 30 @ 20 mls/hr IV .Q24H [facility] Rx#:[id number] Oral 475 200 450 Output: Chest Tube Drainage 30 Left Lateral Chest 30 Urine 510 1000 400 Uretheral (Garcia) 40 Other: Voiding Method Urinal Urinal Urinal # Voids 1 ABP, PAP, CO, CI - Last Documented Arterial Blood Pressure 155/71 Pulmonary Artery Pressure 37/16 Cardiac Output 6.8 Cardiac Index 3 - Exam No acute distress, oriented 3. Nasal O2 at [address] HEENT examination is grossly unremarkable. Mucous membranes are moist. No oral lesions. Neck supple. Full range of motion. No adenopathy thyromegaly or neck vein distention. Cardiovascular examination reveals regular rhythm rate. S1-S2 normal. No S3 or S4. No discernible murmur noted. Lungs reveal few scattered rhonchi. Breath sounds equal. A few crackles are appreciated. No wheezes.. Abdomen soft bowel sounds are heard. No masses or tenderness. Extremities are intact. No cyanosis clubbing or edema. Skin is without rash or lesion. Neurologic examination is brief but nonfocal. - Labs CBC & Chem 7: 02/09/18 05:35 02/09/18 05:35 Labs: Abnormal Lab Results - Last 24 Hours (Table) 02/08/18 02/08/18 02/09/18 Range/Units 17:12 20:58 05:35 RBC 3.85 L (4.30-5.90) m/uL Hgb 10.9 L (13.0-17.5) gm/dL Hct 34.0 L (39.0-53.0) % BUN (9-20) mg/dL Glucose (74-99) mg/dL POC Glucose (mg/dL) 128 H 165 H (75-99) mg/dL Magnesium (1.6-2.3) mg/dL ALT (21-72) U/L Total Protein (6.3-8.2) g/dL Albumin (3.5-5.0) g/dL 02/09/18 02/09/18 Range/Units 05:35 06:58 RBC (4.30-5.90) m/uL Hgb (13.0-17.5) gm/dL Hct (39.0-53.0) % BUN 22 H (9-20) mg/dL Glucose 107 H (74-99) mg/dL POC Glucose (mg/dL) 104 H (75-99) mg/dL Magnesium 2.4 H (1.6-2.3) mg/dL ALT 15 L (21-72) U/L Total Protein 5.5 L (6.3-8.2) g/dL Albumin 3.3 L (3.5-5.0) g/dL Microbiology - Last 24 Hours (Table) 02/08/18 10:12 Gram Stain - Preliminary Sputum Assessment and Plan Assessment: Assessment Postop day #4, status post three-vessel bypass grafting Status post postoperative respiratory failure, resolved, the postoperative period being complicated by both hypoxemic and hypercapnia. History of CAD with previous myocardial infarction, 2017 and previous stent placement in the proximal LAD History of diabetes mellitus, type I, with intensive therapy via insulin pump History of hypertension Hyperlipidemia by history History of sleep apnea syndrome Previous history of tobacco use Plan: Plan dated 02/06/2018 We'll transition the patient from propofol to Precedex. The patient will be given IV acetaminophen for temperature control and IV morphine for control of Love's. The patient's Cleviprex was increased for blood pressure control. Additional recommendations and suggestions are forthcoming. Hopefully, we'll be able to wean and extubate this patient this morning. Oxygenation is improved. Labs x-rays and medications are all reviewed. Plan dated 02/07/2018 The patient did seem to improve and settle down once we switch him from propofol to Precedex. The patient was given additional IV acetaminophen for temperature control and IV morphine/fentanyl for control of rigors. The patient failed weaning attempts and weaning parameters earlier today but right around changes shift, the patient seemed to do better get the patient extubated. The patient is now on 15 L high flow which can be titrated down. We 'll continue to follow closely. He did develop atrial fibrillation with RVR last night and placed on Cordarone 1 mg/m. He remains on insulin drip at 6.5 units per hour and nitroglycerin at 5 mcg/m. Critical care time 39 minutes Plan dictated 02/08/2018 The patient seemed be doing better. His progress is slow low. His oxygen has been weaned from 15 L to 10 L high flow. He's getting a saline IV at KVO. Chest x-ray seems to show fluid overload. CVP is not particularly high. The patient looks stable to me. Additional recommendations and suggestions are forthcoming. All drips have been weaned off. Additional recommendations and suggestions are forthcoming. Critical care time is 32 minutes Plan dated 02/09/2018 The patient seemed be feeling better finally. The patient has been weaned down to 2 L. Yesterday, he was still on high flow O2. The patient is not receiving any IV fluids. We do at some Tessalon Perles 200 mg 3 times a day as well as some codeine containing cough syrup for his cough. The patient otherwise is doing well. X-rays reviewed. Labs and medications are reviewed. We'll continue to follow. The patient will stay in the ICU. Critical care time 32 minutes. Time with Patient: Greater than 30
[2018-02-09 11:53] LABS: Glucose,Whole Blood 102 mg/dL (75-99)
[2018-02-09] MEDS: MAGNESIUM HYDROXIDE 2,400 MG/10 ML CUP PO PRN (12:58)
[2018-02-09] MEDS: BUDESONIDE 1 MG/2 ML NEBU INHALATION SCH ×2 (13:35→21:14)
[2018-02-09 17:28] LABS: Glucose,Whole Blood 143 mg/dL (75-99)
--- NOTE | 2018-02-09 20:03 | PN ---
PROGRESS NOTE DATE OF SERVICE: 02/09/2018. HISTORY: The patient's electronic medical records for the last 24 hours were reviewed. This patient is status post coronary artery bypass surgery. The patient is sitting comfortably in the bedside chair. He is not in any acute distress. Denies any complaint of chest pain or shortness of breath. Patient's oxygen saturations remains 98% on room air and he is achieving about 1 L on his incentive spirometry. PHYSICAL EXAMINATION: Vital signs reveal the patient is afebrile, blood pressure is 124/74 mmHg, respiratory rate is 25. HEART: First and second heart sounds are normal. LUNGS: Clinically clear to auscultation and percussion. LABORATORY DATA: Patient's electrolytes are normal. Creatinine is 1.10. Chest x-ray does not show any evidence of significant congestive cardiac failure. PLAN: The patient's medications are reviewed. MMODL / IJN: [id number] /
[2018-02-09] MEDS: SENNOSIDES-DOCUSATE SODIUM 1 EACH TAB PO SCH (20:23)
[2018-02-09] MEDS: EZETIMIBE 10 MG TAB PO SCH (20:23)
[2018-02-09] MEDS: INSULIN DETEMIR 100 UNIT/ML 10 ML VIAL SQ SCH (20:25)
[2018-02-09 20:31] LABS: Glucose,Whole Blood 132 mg/dL (75-99)
--- NOTE | 2018-02-09 22:38 | P.PN ---
Subjective Progress Note Date: 02/09/18 Principal diagnosis: Status post coronary artery bypass graft 67-year-old male who underwent CABG 3 on 02/05/[address] Miles was consulted for medical management. The patient has a history of COPD, coronary artery disease with 4 stents, diabetes mellitus utilizing insulin pump, hyperlipidemia, hypertension, myocardial infarction, and sleep apnea. He does not utilize a CPAP machine. He is a former cigarette smoker and quit smoking in 1984. Patient smoked 2 packs per day. 02/06/2018 The patient was seen and examined in the intensive care unit this morning by Dr. Miles. The patient remains sedated and intubated. Patient remains on insulin drip. Blood sugars are well controlled and ranging from 118-138. 02/07/2018 Patient seen and examined at the bedside on rounds with Dr. Miles. Patient remains in the ICU. Patient was extubated yesterday. Patient is currently on 15L oxygen. Saturations greater than 92%. Patient is coughing frequently and voices that his chest is sore. Heart hugger in place. Patient remains on insulin drip this morning per protocol. 02/08/2018 Patient seen and examined at the bedside in the intensive care unit by Dr. Miles. Patient is POD #3 CABG. Patient is awake and alert. He is on 5L NC with oxygen saturations greater than 92%. He continues to have occasional productive cough. Insulin drip was discontinued yesterday. Blood sugars over the last 24 hours range from 94-201. He is currently on novolog sliding scale, 10 units novolog with meals, and 30 units levemir at HS. 02/09/2018 Patient has been complaining of cough which is improving improving at this time. No fever no chills. Chest x-ray is negative. Otherwise blood sugars better controlled. No fever no chills. No nausea vomiting or abdominal pain. No diarrhea. All other review of systems negative as above Current medications reviewed Objective - Vital Signs Vital signs: Vital Signs Temp 98.7 F 02/09/18 16:00 Pulse 87 02/09/18 16:00 Resp 15 02/09/18 16:00 BP 128/74 02/09/18 16:00 Pulse Ox 100 02/09/18 16:00 Intake & Output 05/04/18 05/05/18 05/05/18 18:59 06:59 18:59 Intake Total 505 200 750 Output Total 540 1000 500 Balance -35 -800 250 Weight 121.1 kg 120.4 kg Intake: IV 30 Lactated Ringers 1,000 ml 30 @ 20 mls/hr IV .Q24H [facility] Rx#:[id number] Oral 475 200 750 Output: Chest Tube Drainage 30 Left Lateral Chest 30 Urine 510 1000 500 Uretheral (Garcia) 40 Other: Voiding Method Urinal Urinal Urinal # Voids 1 ABP, PAP, CO, CI - Last Documented Arterial Blood Pressure 155/71 Pulmonary Artery Pressure 37/16 Cardiac Output 6.8 Cardiac Index 3 - Exam GENERAL: This is a 67-year-old male in no apparent distress at the time of examination. Pleasant and cooperative. HEENT: Head is atraumatic, normocephalic. Pupils are equal, round, and reactive to light. Sclerae anicteric. Conjunctivae are clear. Mucus membranes of the mouth are moist. Neck is supple. RESPIRATORY: Some scattered rhonchi noted. No wheezing. Frequently coughing. No use of accessory muscles. Patient maintaining oxygen saturation greater than 92 % on 5L. CARDIOVASCULAR: Mediastinal and pleural chest tubes noted. Regular rate and rhythm. S1 and S2 noted. No systolic or diastolic murmur auscultated. No JVD noted. No S3 or S4 noted. GASTROINTESTINAL: No distention noted. Abdomen soft and round. Normal active bowel sounds auscultated x 4 quadrants. No pain or tenderness noted upon palpation. INTEGUMENTARY: Dressing to chest CDI. JONAS drain noted to upper and lower extremity with serosanguineous drainage. No cyanosis. No jaundice. No rashes noted. No cellulitis noted. EXTREMITIES: 2+ peripheral pulses. No evidence of peripheral edema. No calf tenderness noted. NEUROLOGIC: Cranial nerves II-XII intact. PSYCHIATRIC: Awake, alert, and oriented X 3. Appropriate affect. Intact judgement and insight. - Labs CBC & Chem 7: 02/09/18 05:35 02/09/18 05:35 Labs: Abnormal Lab Results - Last 24 Hours (Table) 02/08/18 02/08/18 02/09/18 Range/Units 17:12 20:58 05:35 RBC 3.85 L (4.30-5.90) m/uL Hgb 10.9 L (13.0-17.5) gm/dL Hct 34.0 L (39.0-53.0) % BUN (9-20) mg/dL Glucose (74-99) mg/dL POC Glucose (mg/dL) 128 H 165 H (75-99) mg/dL Magnesium (1.6-2.3) mg/dL ALT (21-72) U/L Total Protein (6.3-8.2) g/dL Albumin (3.5-5.0) g/dL 02/09/18 02/09/18 02/09/18 Range/Units 05:35 06:58 11:50 RBC (4.30-5.90) m/uL Hgb (13.0-17.5) gm/dL Hct (39.0-53.0) % BUN 22 H (9-20) mg/dL Glucose 107 H (74-99) mg/dL POC Glucose (mg/dL) 104 H 102 H (75-99) mg/dL Magnesium 2.4 H (1.6-2.3) mg/dL ALT 15 L (21-72) U/L Total Protein 5.5 L (6.3-8.2) g/dL Albumin 3.3 L (3.5-5.0) g/dL Microbiology - Last 24 Hours (Table) 02/08/18 10:12 Gram Stain - Preliminary Sputum Assessment and Plan Assessment: S/P CABG x 3, POD #4 Coronary artery disease with previous stent placement x 4 Insulin-dependent diabetes mellitus, hemoglobin A1c 8.8% Hypertension Hyperlipidemia Obstructive sleep apnea History of nicotine dependence Obesity: BMI 37.2 PLAN: Continue postoperative care per Dr. More Increased novolog with meals to 15 units Increased Levemir to 55 units at HS Novolog sliding scale ACHS Maintain tight glucose control. Will make adjustments to insulin regimen depending on glucose trends Ideally, would like to resume patients home insulin pump. May start tomorrow if patients hallucinations improve and patient is able to operate pump and make adjustments as needed Further recommendations pending patient's course Time with Patient: Greater than 30
[2018-02-10] MEDS: HEPARIN SODIUM,PORCINE 5,000 UNIT/ML 1 ML VIAL SQ SCH ×4 (01:00→23:00)
[2018-02-10 06:46] LABS: Glucose,Whole Blood 121 mg/dL (75-99)
[2018-02-10 07:13] LABS: HCT 35.3 % (39.0-53.0); HGB 11.4 gm/dL (13.0-17.5); MCH 27.9 pg (25.0-35.0); MCHC 32.2 g/dL (31.0-37.0); MCV 86.8 fL (80.0-100.0); Mean Platelet Volume 7.5; Platelet Count 220 k/uL (150-450); RBC 4.07 m/uL (4.30-5.90); RDW 14.8 % (11.5-15.5); WBC 5.2 k/uL (3.8-10.6)
[2018-02-10] MEDS: LEVOTHYROXINE 50 MCG TAB PO SCH (07:17)
[2018-02-10 07:24] LABS: Calcium 9.3 mg/dL (8.4-10.2); Magnesium 2.3 mg/dL (1.6-2.3); Potassium 4.1 mmol/L (3.5-5.1)
[2018-02-10] MEDS: PROMETHAZ-COD 6.25-10 MG/5 ML 5 ML CUP PO PRN ×3 (07:26→19:00)
[2018-02-10] MEDS: IPRATROPIUM-ALBUTEROL 3 ML NEB INHALATION SCH ×4 (07:55→19:56)
[2018-02-10] MEDS: BUDESONIDE 1 MG/2 ML NEBU INHALATION SCH ×2 (07:55→19:55)
[2018-02-10] MEDS: HYDROcodone/APAP 5-325MG 1 EACH TAB PO PRN ×3 (08:15→17:48)
[2018-02-10] MEDS: INSULIN ASPART 100 UNIT/ML 1 ML 10 ML VIAL SQ SCH ×7 (08:23→21:25)
[2018-02-10] MEDS: METOPROLOL TARTRATE 50 MG TAB PO SCH (08:24)
[2018-02-10] MEDS: ASPIRIN 325 MG TAB PO SCH (08:24)
[2018-02-10] MEDS: BENZONATATE 100 MG CAP PO SCH ×3 (08:24→21:26)
[2018-02-10] MEDS: DILTIAZEM ORAL 30 MG TAB PO SCH ×4 (08:24→21:26)
[2018-02-10] MEDS: AMIODARONE 200 MG TAB PO SCH ×2 (08:24→20:41)
[2018-02-10] MEDS: EZETIMIBE 10 MG TAB PO SCH (08:25)
[2018-02-10] MEDS: PANTOPRAZOLE 40 MG TABLET PO SCH (08:27)
[2018-02-10] MEDS: CLOPIDOGREL 75 MG TAB PO SCH (08:27)
[2018-02-10] MEDS: ATORVASTATIN 40 MG TAB PO SCH (08:28)
[2018-02-10] MEDS ORDERED: METOPROLOL TARTRATE 25 MG TAB PO STA (09:08)
--- NOTE | 2018-02-10 09:55 | P.PN ---
Subjective Progress Note Date: 02/10/18 Principal diagnosis: Status post bypass grafting Progress note dated 02/07/2018 67-year-old male postop day #2, status post four-vessel bypass grafting. The patient had some issues with oxygenation and ventilation initially coming out of the operating room. Yesterday, finally after couple weaning attempts, we will extubate the patient. The patient failed his weaning parameters prior to extubation. The patient has a history of diabetes mellitus, managed by insulin pump, CAD with previous myocardial infarction 2016, with previous stent placement to the LAD, hypertension, hyperlipidemia, sleep apnea syndrome and previous tobacco use. The patient did better yesterday after we switched him to dexmedetomidine and DC his propofol. The patient was having arthritis as well. That was treated with narcotics. In addition, the blood pressure was either high or low throughout the day. Needless to say, I'm very happy that we' re able to get him extubated. Currently, the patient is resting comfortably. The patient is currently on 15 L high flow but that'll be titrated down pending his saturations, receiving lactated Ringer's at 50 mL an hour, Cordarone at 1 mg /m, insulin drip at 6.5 units per hour and nitroglycerin at 5 mics per minute. He did develop atrial fibrillation with RVR last night. He was extubated on February 06. Chest x-ray my opinion show some mild fluid overload. He is awake and alert. Progress note dated 02/08/2018 This is a 67-year-old male, postop day #3, status post four-vessel bypass grafting. The patient had some issues with oxygenation and ventilation initially after the surgery. Eventually, the patient was weaned and extubated. This was a day ago. The patient has a history of diabetes mellitus managed by insulin pump, CAD, with previous myocardial infarction, 2017, previous stent placement to the LAD, hypertension, hyperlipidemia, sleep apnea syndrome and previous tobacco use. Currently, the patient's on O2 with 10 L high flow. He' s getting a saline IV at KVO. Chest x-ray seems to show some mild fluid overload. His CVP is not particularly high. He has not been seen by cardiothoracic as yet. I will let them decide whether or not they want to give him some additional diuretic at this point. Other than that, he is resting comfortably. His Cordarone has been weaned off. Nitroglycerin has been weaned off. Labs x-rays and medications are all reviewed. Progress note dated 02/09/2018. 67-year-old male, postop day #4, status post four-vessel bypass grafting. The patient had some initial issues with both oxygenation and ventilation postsurgically. The eventually resolved. He was weaned and extubated. The patient is doing relatively well now. He has a history of diabetes managed by insulin pump CAD previous myocardial infarction and stent placement 2017 hypertension hyperlipidemia sleep apnea syndrome previous tobacco use. The patient's is in the room with him. His only issue right now is a lot of coughing. We had some Tessalon Perles and some codeine containing cough syrup for that. Other than that, he seemed to do relatively well. He is currently receiving O2 at 2 L and no IV. Progress note dated 02/10/2018 67-year-old male, postop day #5, status post four-vessel bypass grafting. The patient is doing much better. His biggest issue right now is persistent cough. Yesterday we added some promethazine with codeine cough syrup as well as some Tessalon Perles. The patient's cough is improved but he still is having some issues. The patient has a history of diabetes CAD myocardial infarction previous stent placement hypertension hyperlipidemia sleep apnea syndrome and previous tobacco use. He is currently still on O2 at 2 L. Hemodynamically he is stable. His cough is a bit better today. Objective - Vital Signs Vital signs: Vital Signs Temp 98.3 F 02/10/18 08:00 Pulse 87 02/10/18 08:12 Resp 13 02/10/18 08:00 BP 140/78 02/10/18 05:00 Pulse Ox 100 02/10/18 08:00 Intake & Output 02/09/18 02/10/18 02/10/18 18:59 06:59 18:59 Intake Total 750 Output Total 600 250 250 Balance 150 -250 -250 Weight 114.2 kg Intake: Oral 750 Output: Urine 600 250 250 Other: Voiding Method Urinal Urinal # Voids 1 1 ABP, PAP, CO, CI - Last Documented Arterial Blood Pressure 155/71 Pulmonary Artery Pressure 37/16 Cardiac Output 6.8 Cardiac Index 3 - Exam No acute distress, oriented 3. Nasal O2 at [address] HEENT examination is grossly unremarkable. Mucous membranes are moist. No oral lesions. Neck supple. Full range of motion. No adenopathy thyromegaly or neck vein distention. Cardiovascular examination reveals regular rhythm rate. S1-S2 normal. No S3 or S4. No discernible murmur noted. Lungs reveal few scattered rhonchi. Breath sounds equal. A few crackles are appreciated. No wheezes.. Abdomen soft bowel sounds are heard. No masses or tenderness. Extremities are intact. No cyanosis clubbing or edema. Skin is without rash or lesion. Neurologic examination is brief but nonfocal. - Labs CBC & Chem 7: 02/10/18 06:45 02/10/18 06:45 Labs: Abnormal Lab Results - Last 24 Hours (Table) 02/09/18 02/09/18 02/09/18 Range/Units 11:50 17:26 20:28 RBC (4.30-5.90) m/uL Hgb (13.0-17.5) gm/dL Hct (39.0-53.0) % BUN (9-20) mg/dL Glucose (74-99) mg/dL POC Glucose (mg/dL) 102 H 143 H 132 H (75-99) mg/dL 02/10/18 02/10/18 02/10/18 Range/Units 06:44 06:45 06:45 RBC 4.07 L (4.30-5.90) m/uL Hgb 11.4 L (13.0-17.5) gm/dL Hct 35.3 L (39.0-53.0) % BUN 24 H (9-20) mg/dL Glucose 117 H (74-99) mg/dL POC Glucose (mg/dL) 121 H (75-99) mg/dL Assessment and Plan Assessment: Assessment Postop day #5, status post 4 vessel bypass grafting Status post postoperative respiratory failure, resolved, the postoperative period being complicated by both hypoxemic and hypercapnia. History of CAD with previous myocardial infarction, 2017 and previous stent placement in the proximal LAD History of diabetes mellitus, type I, with intensive therapy via insulin pump History of hypertension Hyperlipidemia by history History of sleep apnea syndrome Previous history of tobacco use Plan: Plan dated 02/06/2018 We'll transition the patient from propofol to Precedex. The patient will be given IV acetaminophen for temperature control and IV morphine for control of Love's. The patient's Cleviprex was increased for blood pressure control. Additional recommendations and suggestions are forthcoming. Hopefully, we'll be able to wean and extubate this patient this morning. Oxygenation is improved. Labs x-rays and medications are all reviewed. Plan dated 02/07/2018 The patient did seem to improve and settle down once we switch him from propofol to Precedex. The patient was given additional IV acetaminophen for temperature control and IV morphine/fentanyl for control of rigors. The patient failed weaning attempts and weaning parameters earlier today but right around changes shift, the patient seemed to do better get the patient extubated. The patient is now on 15 L high flow which can be titrated down. We 'll continue to follow closely. He did develop atrial fibrillation with RVR last night and placed on Cordarone 1 mg/m. He remains on insulin drip at 6.5 units per hour and nitroglycerin at 5 mcg/m. Critical care time 39 minutes Plan dictated 02/08/2018 The patient seemed be doing better. His progress is slow low. His oxygen has been weaned from 15 L to 10 L high flow. He's getting a saline IV at KVO. Chest x-ray seems to show fluid overload. CVP is not particularly high. The patient looks stable to me. Additional recommendations and suggestions are forthcoming. All drips have been weaned off. Additional recommendations and suggestions are forthcoming. Critical care time is 32 minutes Plan dated 02/09/2018 The patient seemed be feeling better finally. The patient has been weaned down to 2 L. Yesterday, he was still on high flow O2. The patient is not receiving any IV fluids. We do at some Tessalon Perles 200 mg 3 times a day as well as some codeine containing cough syrup for his cough. The patient otherwise is doing well. X-rays reviewed. Labs and medications are reviewed. We'll continue to follow. The patient will stay in the ICU. Critical care time 32 minutes. Plan dated 02/10/2018 The patient seems be doing a bit better today. Still with a cough that is improved from yesterday. Yesterday we added some promethazine with codeine cough syrup as well as some Tessalon Perles, 200 mg 3 times a day. In addition , he remains on nasal O2 2 L. Sitting up in the chair. Hemodynamically, he's been stable. He does see to be progressing. No chest x-ray today as yet. Time with Patient: Less than 30
--- NOTE | 2018-02-10 11:43 | P.PN ---
Subjective Progress Note Date: 02/10/18 Principal diagnosis: Triple-vessel coronary artery disease, status post remote stenting of his left anterior descending coronary artery twice in March 2016, mild left ventricular dysfunction, hypertension, hyperlipidemia, obstructive sleep apnea status post surgical revision and no current CPAP use, insulin-dependent diabetes mellitus managed with home insulin pump, varicose veins and remote history of tobacco dependence quit smoking 30-40 years ago. POD #5 coronary artery bypass grafting 3 using the left internal mammary artery to the left anterior descending coronary artery, left radial artery from the aorta to the second obtuse marginal coronary artery, a reverse greater saphenous vein graft from the aorta to the right coronary artery, endoscopic harvesting of the left radial artery, endoscopic harvesting of the right greater saphenous vein from knee to ankle level, intraoperative transesophageal echocardiogram and epi-aortic scanning, intraoperative graft flow measurement using the [employer] Compare System. Postoperative paroxysmal atrial fibrillation, an expected outcome of surgery. Postoperative respiratory failure, resolved, postoperative period being complicated by both hypoxemic and hypercapnia, an unexpected but potential outcome of surgery. Patient is sitting up to the bedside chair. He is in no acute distress. He denies any complaints of pain or shortness of breath at this time. He reports that his episodes of coughing have somewhat improved. Oxygen saturation are 99 % on 2 L nasal cannula, he is achieving 1850 mL on his incentive spirometry with encouragement. Objective - Vital Signs Vital signs: Vital Signs Temp 98.3 F 02/10/18 08:00 Pulse 87 02/10/18 08:12 Resp 13 02/10/18 08:00 BP 140/78 02/10/18 05:00 Pulse Ox 100 02/10/18 08:00 Intake & Output 02/09/18 02/10/18 02/10/18 18:59 06:59 18:59 Intake Total 750 Output Total 600 250 250 Balance 150 -250 -250 Weight 114.2 kg Intake: Oral 750 Output: Urine 600 250 250 Other: Voiding Method Urinal Urinal Urinal # Voids 1 1 ABP, PAP, CO, CI - Last Documented Arterial Blood Pressure 155/71 Pulmonary Artery Pressure 37/16 Cardiac Output 6.8 Cardiac Index 3 - Constitutional General appearance: Present: cooperative, no acute distress, obese - Respiratory Details: Lungs sounds essentially clear throughout, few scattered crackles to his bilateral bases. Respirations are symmetrical and nonlabored. Oxygen saturation are 99% on 2 L nasal cannula. He is achieving 1850 mL on his incentive spirometry. - Cardiovascular Details: Irregular rhythm with controlled rate. S1 and S2 present, negative for S3, gallop or murmur. Sternum is stable. Bedside telemetry showing atrial fibrillation heart rate 92. Heart hugger is in place and he is demonstrating appropriate use. Atrial and ventricular epicardial pacemaker wires intact and grounded. Knee-high SERG hose and sequential compression devices in place to his bilateral lower extremities. No edema present. - Gastrointestinal Gastrointestinal Comment(s): Abdomen is soft, nontender and nondistended. Active bowel sounds all 4 abdominal quadrants. Tolerating oral intake. Passing flatus. - Genitourinary Genitourinary Comment(s): Voiding clear yellow urine. 250 mL output in the last 8 hours. - Integumentary Integumentary Comment(s): Skin is warm and dry. No clubbing or cyanosis present. Midline sternal incision clean dry and approximated. No drainage or redness present. Dermabond dressing clean and dry. Right leg EVH site clean dry and approximated. No drainage or redness present. Left arm radial artery harvest sites clean dry and approximated. - Neurologic Neurologic: Present: CNII-XII intact - Musculoskeletal Musculoskeletal: Present: gait normal, strength equal bilaterally - Psychiatric Psychiatric: Present: A&O x's 3, appropriate affect, intact judgment & insight - Allied health notes Allied health notes reviewed: nursing - Labs CBC & Chem 7: 02/10/18 06:45 02/10/18 06:45 Labs: Abnormal Lab Results - Last 24 Hours (Table) 02/09/18 02/09/18 02/09/18 Range/Units 11:50 17:26 20:28 RBC (4.30-5.90) m/uL Hgb (13.0-17.5) gm/dL Hct (39.0-53.0) % BUN (9-20) mg/dL Glucose (74-99) mg/dL POC Glucose (mg/dL) 102 H 143 H 132 H (75-99) mg/dL 02/10/18 02/10/18 02/10/18 Range/Units 06:44 06:45 06:45 RBC 4.07 L (4.30-5.90) m/uL Hgb 11.4 L (13.0-17.5) gm/dL Hct 35.3 L (39.0-53.0) % BUN 24 H (9-20) mg/dL Glucose 117 H (74-99) mg/dL POC Glucose (mg/dL) 121 H (75-99) mg/dL Microbiology - Last 24 Hours (Table) 02/08/18 10:12 Gram Stain - Final Sputum Sputum Culture - Final Assessment and Plan (1) History of obstructive sleep apnea Current Visit: No Status: Acute Code(s): Z86.69 - PERSONAL HISTORY OF DIS OF THE NERVOUS SYS AND SENSE ORGANS SNOMED Code(s): 591860974 (2) Coronary artery disease Current Visit: No Status: Chronic Code(s): I25.10 - ATHSCL HEART DISEASE OF [place] CORONARY ARTERY W/O ANG PCTRS SNOMED Code(s): 04425202 (3) Family history of premature coronary artery disease Current Visit: No Status: Chronic Code(s): Z82.49 - FAMILY HX OF ISCHEM HEART DIS AND OTH DIS OF THE CIRC SYS SNOMED Code(s): 986177062 (4) History of coronary artery stent placement Current Visit: No Status: Chronic Code(s): Z95.5 - PRESENCE OF CORONARY ANGIOPLASTY IMPLANT AND GRAFT SNOMED Code(s): 391957668 (5) Hyperlipidemia Current Visit: No Status: Chronic Code(s): E78.5 - HYPERLIPIDEMIA, UNSPECIFIED SNOMED Code(s): 19025583 (6) Hypertension Current Visit: No Status: Chronic Code(s): I10 - ESSENTIAL (PRIMARY) HYPERTENSION SNOMED Code(s): 19097797 (7) Insulin dependent diabetes mellitus Current Visit: No Status: Chronic Code(s): E11.9 - TYPE 2 DIABETES MELLITUS WITHOUT COMPLICATIONS; Z79.4 - LONG-TERM (CURRENT) USE OF INSULIN SNOMED Code( s): 46762078 (8) Obesity (BMI 30-39.9) Current Visit: No Status: Chronic Code(s): E66.9 - OBESITY, UNSPECIFIED SNOMED Code(s): 122250359 (9) History of myocardial infarction Current Visit: No Status: Resolved Code(s): I25.2 - OLD MYOCARDIAL INFARCTION SNOMED Code(s): 855219210 (10) Tobacco dependence in remission Current Visit: No Status: Resolved Code(s): F17.201 - NICOTINE DEPENDENCE, UNSPECIFIED, IN REMISSION SNOMED Code(s): 404681336 Plan: 1. Continue aspirin, statin, subcu heparin, and beta lauri. We will increase his metoprolol tartrate to 75 mg by mouth twice a day. 2. Pulmonary management per Dr. Dorado. 3. Continue Cardizem 30 mg by mouth every 6 hours. Do not stop Cardizem due to radial harvest. 4. GI and DVT prophylaxis. 5. Increase activity as tolerated, physical, occupational therapy and cardiac rehab following. 6. Continue Phenergan With Codeine and Tessalon pearls for his coughing episodes 7. Encourage use of his incentive spirometry every hour while awake. 8. Blood sugar management per primary care service. Start home insulin pump when okay with primary care service. 9. Will monitor daily labs and chest x-rays. 10. Continue amiodarone 400 mg by mouth twice a day for atrial fib ablation prophylaxis. 11. More recommendations to follow based on the patient's clinical course. We will transfer the patient to [address] [place] [address]. Time with Patient: Greater than 30
[2018-02-10 13:02] LABS: Glucose,Whole Blood 95 mg/dL (75-99)
[2018-02-10 16:23] LABS: Glucose,Whole Blood 104 mg/dL (75-99)
[2018-02-10] MEDS: CHLORHEXIDINE GLUCONATE 15 ML CUP MUCOUS MEM SCH (16:47)
[2018-02-10] MEDS: KETOROLAC 30 MG/ML 1 ML VIAL IVP SCH (16:49)
--- NOTE | 2018-02-10 19:19 | PN ---
PROGRESS NOTE The patient is status post coronary artery bypass surgery. Patient is doing fairly well. He is sitting in the chair comfortably without any acute respiratory distress. Patient is afebrile. Blood pressure is 140/78 mmHg. Heart S1 and S2 normal. Lungs are fairly clear to auscultation and percussion. We will continue the current medications. MMODL / IJN: [id number] /
[2018-02-10] MEDS: METOPROLOL TARTRATE 25 MG TAB PO SCH (20:41)
[2018-02-10 21:13] LABS: Glucose,Whole Blood 247 mg/dL (75-99)
[2018-02-10] MEDS: INSULIN DETEMIR 100 UNIT/ML 10 ML VIAL SQ SCH (21:25)
[2018-02-10] MEDS: SENNOSIDES-DOCUSATE SODIUM 1 EACH TAB PO SCH (21:26)
[2018-02-11] MEDS: PROMETHAZ-COD 6.25-10 MG/5 ML 5 ML CUP PO PRN ×3 (01:02→13:59)
[2018-02-11] MEDS: HYDROcodone/APAP 5-325MG 1 EACH TAB PO PRN ×3 (01:13→14:07)
[2018-02-11 06:15] LABS: Glucose,Whole Blood 81 mg/dL (75-99)
[2018-02-11] MEDS: INSULIN ASPART 100 UNIT/ML 1 ML 10 ML VIAL SQ SCH ×3 (06:23→07:08)
[2018-02-11] MEDS: LEVOTHYROXINE 50 MCG TAB PO SCH (06:38)
[2018-02-11] MEDS: PANTOPRAZOLE 40 MG TABLET PO SCH (06:38)
[2018-02-11 06:53] LABS: Basophils % (A) 1 %; Eosinophils # (A) 0.3 k/uL (0-0.7); Eosinophils % (A) 5 %; HCT 37.6 % (39.0-53.0); HGB 12.2 gm/dL (13.0-17.5); Lymphocytes # (A) 1.7 k/uL (1.0-4.8); Lymphocytes % (A) 27 %; MCH 28.1 pg (25.0-35.0); MCHC 32.6 g/dL (31.0-37.0); MCV 86.3 fL (80.0-100.0); Mean Platelet Volume 7.6; Monocytes # (A) 0.5 k/uL (0-1.0); Monocytes % (A) 8 %; Neutrophils # (A) 3.4 k/uL (1.3-7.7); Neutrophils % (A) 55 %; Platelet Count 248 k/uL (150-450); RBC 4.36 m/uL (4.30-5.90); RDW 14.8 % (11.5-15.5); WBC 6.2 k/uL (3.8-10.6)
[2018-02-11 07:04] LABS: Albumin 3.8 g/dL (3.5-5.0); Calcium 9.7 mg/dL (8.4-10.2); Potassium 4.3 mmol/L (3.5-5.1); Total Bilirubin 0.7 mg/dL (0.2-1.3); Total Protein 6.1 g/dL (6.3-8.2)
--- NOTE | 2018-02-11 07:10 | XR ---
EXAMINATION TYPE: XR chest 2V DATE OF EXAM: 02/11/2018 COMPARISON: Chest x-ray from 2 days ago and older studies. HISTORY: Post open cardiac surgery progress study. TECHNIQUE: Frontal and lateral views of the chest are obtained. FINDINGS: Post-CABG changes with mediastinal clips and sternal wires is redemonstrated. There is pers istent left basilar opacity. There is persistent patchy right basilar atelectasis. There is no new fo pat air space opacity, pleural effusion, or pneumothorax seen. The cardiac silhouette size is stable and mildly enlarged with atherosclerotic aorta. The osseous structures are intact. IMPRESSION: Overall stable findings from prior study, mild cardiomegaly with small left pleural effu solange and left basilar atelectasis and/or infiltrate and patchy right basilar atelectasis all redemons trated.
[2018-02-11] MEDS: IPRATROPIUM-ALBUTEROL 3 ML NEB INHALATION SCH ×3 (07:34→15:27)
[2018-02-11] MEDS: BUDESONIDE 1 MG/2 ML NEBU INHALATION SCH (07:34)
[2018-02-11] MEDS: HEPARIN SODIUM,PORCINE 5,000 UNIT/ML 1 ML VIAL SQ SCH (07:57)
[2018-02-11] MEDS: BENZONATATE 100 MG CAP PO SCH ×2 (07:58→15:31)
[2018-02-11] MEDS: METOPROLOL TARTRATE 25 MG TAB PO SCH (07:58)
[2018-02-11] MEDS: CLOPIDOGREL 75 MG TAB PO SCH (07:59)
[2018-02-11] MEDS: ASPIRIN 325 MG TAB PO SCH (07:59)
[2018-02-11] MEDS: ATORVASTATIN 40 MG TAB PO SCH (07:59)
[2018-02-11] MEDS: EZETIMIBE 10 MG TAB PO SCH (08:00)
[2018-02-11] MEDS: AMIODARONE 200 MG TAB PO SCH (08:00)
[2018-02-11] MEDS: DILTIAZEM ORAL 30 MG TAB PO SCH ×2 (08:00→14:01)
[2018-02-11 08:38] VITALS: BP 159/80; TEMP 97.7
[2018-02-11] MEDS ORDERED: INSPUCOR MISCELLANE PRN ×2 (09:40→13:36)
[2018-02-11] MEDS ORDERED: INSULIN ASPART 100 UNIT/ML 1 ML 10 ML VIAL SQ PRN (09:40)
[2018-02-11] MEDS ORDERED: INSULIN PUMP BASAL RATES 1 EACH MISC MISCELLANE PRN ×3 (09:40→13:36)
--- NOTE | 2018-02-11 09:51 | P.PN ---
Subjective Progress Note Date: 02/11/18 67-year-old male who underwent CABG 3 on 02/05/[address] Miles was consulted for medical management. The patient has a history of COPD, coronary artery disease with 4 stents, diabetes mellitus utilizing insulin pump, hyperlipidemia, hypertension, myocardial infarction, and sleep apnea. He does not utilize a CPAP machine. He is a former cigarette smoker and quit smoking in 1984. Patient smoked 2 packs per day. 02/06/2018 The patient was seen and examined in the intensive care unit this morning by Dr. Miles. The patient remains sedated and intubated. Patient remains on insulin drip. Blood sugars are well controlled and ranging from 118-138. 02/07/2018 Patient seen and examined at the bedside on rounds with Dr. Miles. Patient remains in the ICU. Patient was extubated yesterday. Patient is currently on 15L oxygen. Saturations greater than 92%. Patient is coughing frequently and voices that his chest is sore. Heart hugger in place. Patient remains on insulin drip this morning per protocol. 02/08/2018 Patient seen and examined at the bedside in the intensive care unit by Dr. Miles. Patient is POD #3 CABG. Patient is awake and alert. He is on 5L NC with oxygen saturations greater than 92%. He continues to have occasional productive cough. Insulin drip was discontinued yesterday. Blood sugars over the last 24 hours range from 94-201. He is currently on novolog sliding scale, 10 units novolog with meals, and 30 units levemir at . 02/09/2018-Note per covering provider 02/10/2018-Note per covering provider 02/11/2018 Patient seen and examined at the bedside with Dr. Miles. Spouse present. Patient states he is feeling great this morning and has a lot of energy. He reports a frequent cough. Heart hugger in place. Patient using IS. Patient remains on novolog sliding scale, novolog 15 units with meals, and 55 units levemir. Objective - Vital Signs Vital signs: Vital Signs Temp 97.7 F 02/11/18 08:00 Pulse 88 02/11/18 08:00 Resp 18 02/11/18 08:00 BP 159/80 02/11/18 08:00 Pulse Ox 97 02/11/18 08:00 Intake & Output 02/10/18 02/11/18 02/11/18 18:59 06:59 18:59 Intake Total 450 360 Output Total 450 200 600 Balance 0 -200 -240 Weight 112.9 kg Intake: Oral 450 360 Output: Urine 450 200 600 Other: Voiding Method Urinal Urinal Urinal # Voids 1 1 # Bowel Movements 1 ABP, PAP, CO, CI - Last Documented Arterial Blood Pressure 155/71 Pulmonary Artery Pressure 37/16 Cardiac Output 6.8 Cardiac Index 3 - Exam GENERAL: This is a 67-year-old male in no apparent distress at the time of examination. Pleasant and cooperative. HEENT: Head is atraumatic, normocephalic. Pupils are equal, round, and reactive to light. Sclerae anicteric. Conjunctivae are clear. Mucus membranes of the mouth are moist. Neck is supple. RESPIRATORY: Clear throughout. No wheezing. Frequently coughing. No use of accessory muscles. Patient maintaining oxygen saturation greater than 92% on room air. CARDIOVASCULAR: Regular rate and rhythm. S1 and S2 noted. No systolic or diastolic murmur auscultated. No JVD noted. No S3 or S4 noted. GASTROINTESTINAL: No distention noted. Abdomen soft and round. Normal active bowel sounds auscultated x 4 quadrants. No pain or tenderness noted upon palpation. INTEGUMENTARY: No cyanosis. No jaundice. No rashes noted. No cellulitis noted. EXTREMITIES: 2+ peripheral pulses. No evidence of peripheral edema. No calf tenderness noted. NEUROLOGIC: Cranial nerves II-XII intact. PSYCHIATRIC: Awake, alert, and oriented X 3. Appropriate affect. Intact judgement and insight. - Labs CBC & Chem 7: 02/11/18 06:38 02/11/18 06:38 Labs: Abnormal Lab Results - Last 24 Hours (Table) 02/10/18 02/10/18 02/11/18 Range/Units 16:20 21:11 06:38 Hgb 12.2 L (13.0-17.5) gm/dL Hct 37.6 L (39.0-53.0) % BUN (9-20) mg/dL POC Glucose (mg/dL) 104 H 247 H (75-99) mg/dL ALT (21-72) U/L Total Protein (6.3-8.2) g/dL 02/11/18 Range/Units 06:38 Hgb (13.0-17.5) gm/dL Hct (39.0-53.0) % BUN 23 H (9-20) mg/dL POC Glucose (mg/dL) (75-99) mg/dL ALT 15 L (21-72) U/L Total Protein 6.1 L (6.3-8.2) g/dL Microbiology - Last 24 Hours (Table) 02/08/18 10:12 Gram Stain - Final Sputum Sputum Culture - Final Assessment and Plan Plan: ASSESSMENT: S/P CABG x 3, POD #6 Coronary artery disease with previous stent placement x 4 Insulin-dependent diabetes mellitus, hemoglobin A1c 8.8% Hypertension Hyperlipidemia Obstructive sleep apnea History of nicotine dependence Obesity: BMI 37.2 PLAN: Continue postoperative care per Dr. More Discontinue scheduled novolog with meals, sliding scale, and levemir Patient may start using his insulin pump from home. Initiate on previous home settings. Continue accuchecks ACHS Patients to bring in patients insulin pump from home this morning Further recommendations pending patient's course Nurse practitioner note has been reviewed by physician. Signing provider agrees with the documented findings, assessment, and plan of care.
--- NOTE | 2018-02-11 10:12 | P.PN ---
Subjective Progress Note Date: 02/10/18 Principal diagnosis: Status post coronary artery bypass graft 67-year-old male who underwent CABG 3 on 02/05/[address] Miles was consulted for medical management. The patient has a history of COPD, coronary artery disease with 4 stents, diabetes mellitus utilizing insulin pump, hyperlipidemia, hypertension, myocardial infarction, and sleep apnea. He does not utilize a CPAP machine. He is a former cigarette smoker and quit smoking in 1984. Patient smoked 2 packs per day. 02/06/2018 The patient was seen and examined in the intensive care unit this morning by Dr. Miles. The patient remains sedated and intubated. Patient remains on insulin drip. Blood sugars are well controlled and ranging from 118-138. 02/07/2018 Patient seen and examined at the bedside on rounds with Dr. Miles. Patient remains in the ICU. Patient was extubated yesterday. Patient is currently on 15L oxygen. Saturations greater than 92%. Patient is coughing frequently and voices that his chest is sore. Heart hugger in place. Patient remains on insulin drip this morning per protocol. 02/08/2018 Patient seen and examined at the bedside in the intensive care unit by Dr. Miles. Patient is POD #3 CABG. Patient is awake and alert. He is on 5L NC with oxygen saturations greater than 92%. He continues to have occasional productive cough. Insulin drip was discontinued yesterday. Blood sugars over the last 24 hours range from 94-201. He is currently on novolog sliding scale, 10 units novolog with meals, and 30 units levemir at HS. 02/09/2018 Patient has been complaining of cough which is improving improving at this time. No fever no chills. Chest x-ray is negative. Otherwise blood sugars better controlled. No fever no chills. No nausea vomiting or abdominal pain. No diarrhea. 02/10/2018 Patient denied any new complaints today. Patient was transferred to medical floor now. Blood sugar 121 this morning. No commerce of chest pain or shortness of breath. No fever no chills. No nausea vomiting or abdominal pain. All other review of systems negative as above Current medications reviewed Objective - Vital Signs Vital signs: Vital Signs Temp 98.7 F 02/10/18 13:00 Pulse 77 02/10/18 13:00 Resp 21 02/10/18 13:00 BP 129/78 02/10/18 13:00 Pulse Ox 95 02/10/18 13:00 Intake & Output 02/09/18 02/10/18 02/10/18 18:59 06:59 18:59 Intake Total 750 450 Output Total 600 250 450 Balance 150 -250 0 Weight 114.2 kg Intake: Oral 750 450 Output: Urine 600 250 450 Other: Voiding Method Urinal Urinal Urinal # Voids 1 1 1 ABP, PAP, CO, CI - Last Documented Arterial Blood Pressure 155/71 Pulmonary Artery Pressure 37/16 Cardiac Output 6.8 Cardiac Index 3 - Exam GENERAL: This is a 67-year-old male in no apparent distress at the time of examination. Pleasant and cooperative. HEENT: Head is atraumatic, normocephalic. Pupils are equal, round, and reactive to light. Sclerae anicteric. Conjunctivae are clear. Mucus membranes of the mouth are moist. Neck is supple. RESPIRATORY: Some scattered rhonchi noted. No wheezing. Frequently coughing. No use of accessory muscles. Patient maintaining oxygen saturation greater than 92 % on 5L. CARDIOVASCULAR: Mediastinal and pleural chest tubes noted. Regular rate and rhythm. S1 and S2 noted. No systolic or diastolic murmur auscultated. No JVD noted. No S3 or S4 noted. GASTROINTESTINAL: No distention noted. Abdomen soft and round. Normal active bowel sounds auscultated x 4 quadrants. No pain or tenderness noted upon palpation. INTEGUMENTARY: Dressing to chest CDI. JONAS drain noted to upper and lower extremity with serosanguineous drainage. No cyanosis. No jaundice. No rashes noted. No cellulitis noted. EXTREMITIES: 2+ peripheral pulses. No evidence of peripheral edema. No calf tenderness noted. NEUROLOGIC: Cranial nerves II-XII intact. PSYCHIATRIC: Awake, alert, and oriented X 3. Appropriate affect. Intact judgement and insight. - Labs CBC & Chem 7: 02/11/18 06:38 02/11/18 06:38 Labs: Abnormal Lab Results - Last 24 Hours (Table) 02/09/18 02/09/18 02/10/18 Range/Units 17:26 20:28 06:44 RBC (4.30-5.90) m/uL Hgb (13.0-17.5) gm/dL Hct (39.0-53.0) % BUN (9-20) mg/dL Glucose (74-99) mg/dL POC Glucose (mg/dL) 143 H 132 H 121 H (75-99) mg/dL 02/10/18 02/10/18 Range/Units 06:45 06:45 RBC 4.07 L (4.30-5.90) m/uL Hgb 11.4 L (13.0-17.5) gm/dL Hct 35.3 L (39.0-53.0) % BUN 24 H (9-20) mg/dL Glucose 117 H (74-99) mg/dL POC Glucose (mg/dL) (75-99) mg/dL Microbiology - Last 24 Hours (Table) 02/08/18 10:12 Gram Stain - Final Sputum Sputum Culture - Final Assessment and Plan Assessment: S/P CABG x 3, POD #5 Coronary artery disease with previous stent placement x 4 Insulin-dependent diabetes mellitus, hemoglobin A1c 8.8% Hypertension Hyperlipidemia Obstructive sleep apnea History of nicotine dependence Obesity: BMI 37.2 PLAN: Continue postoperative care per Dr. More Increased novolog with meals to 15 units Increased Levemir to 55 units at HS Novolog sliding scale ACHS Maintain tight glucose control. Will make adjustments to insulin regimen depending on glucose trends Ideally, would like to resume patients home insulin pump. May start tomorrow if patients hallucinations improve and patient is able to operate pump and make adjustments as needed Further recommendations pending patient's course Time with Patient: Greater than 30
[2018-02-11 11:56] LABS: Glucose,Whole Blood 129 mg/dL (75-99)
[2018-02-11] MEDS ORDERED: INSULIN PUMP MEAL BOLUS 1 UNIT MISC MISCELLANE SCH ×2 (12:30→17:30)
[2018-02-11] MEDS ORDERED: LOSARTAN 25 MG TAB PO SCH (13:00)
[2018-02-11] MEDS ORDERED: INSULIN PUMP ACTIVE INSULIN 1 EACH MISC MISCELLANE PRN (13:36)
[2018-02-11] MEDS ORDERED: INSULIN PUMP TARGET GLUCOSE 1 EACH MISC MISCELLANE PRN (13:36)
--- NOTE | 2018-02-11 14:25 | P.DS ---
Providers Date of admission: 02/05/18 05:33 Expected date of discharge: 02/11/18 Attending physician: Selam More Consults: 02/05/18 14:07 Consult Physician Routine Consulting Provider: Gaetano Dorado Consult Reason/Comments: Credit Or Loans Officer Consult: post cardiac surgery Do you want consulting provider notified?: Yes Consult Physician Routine Consulting Provider: Alexander Miles Consult Reason/Comments: Medical Management Do you want consulting provider notified?: Yes Consult Physician Routine Consulting Provider: Felicia Randall Consult Reason/Comments: Instrument Room Technician Consult: post cardiac surgery Do you want consulting provider notified?: Yes Primary care physician: Alexander Miles - Discharge Diagnosis(es) (1) History of obstructive sleep apnea Current Visit: No Status: Acute (2) Coronary artery disease Current Visit: No Status: Chronic (3) Family history of premature coronary artery disease Current Visit: No Status: Chronic (4) History of coronary artery stent placement Current Visit: No Status: Chronic (5) Hyperlipidemia Current Visit: No Status: Chronic (6) Hypertension Current Visit: No Status: Chronic (7) Insulin dependent diabetes mellitus Current Visit: No Status: Chronic (8) Obesity (BMI 30-39.9) Current Visit: No Status: Chronic (9) History of myocardial infarction Current Visit: No Status: Resolved (10) Tobacco dependence in remission Current Visit: No Status: Resolved Hospital Course: FINAL DIAGNOSIS: 1. Triple-vessel coronary artery disease 2. Status post stenting to his left anterior coronary artery in March 2016 3. Mild left ventricular dysfunction preoperative ejection fraction of 45-50% 4. Hypertension 5. Hyperlipidemia 6. Obstructive sleep apnea status post surgical revision and non-current CPAP use 7. Insulin-dependent diabetes mellitus managed with home insulin pump 8. Varicose veins 9. Remote history of tobacco dependence quit smoking 30-40 years ago 10. History of myocardial infarction 11. Postoperative paroxysmal atrial fibrillation, an expected outcome of surgery 12. Postoperative respiratory failure, resolved, postoperative period being complicated by both hypoxemic and hypercapnia, an unexpected but potential outcome of surgery PRINCIPAL PROCEDURE: 1. Elective coronary artery bypass grafting 3 using the left internal mammary artery to the left anterior descending coronary artery, left radial artery from the aorta to the second obtuse marginal coronary artery, reverse greater saphenous vein graft from the aorta to the right coronary artery. 2. Endoscopic harvesting of the left radial artery. 3. Endoscopic harvesting of the right greater saphenous vein from the knee to the ankle level. 4. Intraoperative transesophageal echocardiogram, epi- aortic scanning and graft flow measurement using the Medistim system. HISTORY OF PRESENT ILLNESS: This is a 67-year-old gentleman who is followed by Dr. Alexander Miles on an outpatient basis. Patient has a past medical history significant for coronary artery disease with previous stent placement to his left anterior descending coronary artery in March 2016 and December 2016, history of myocardial infarction, insulin-dependent diabetes mellitus, currently on insulin pump, hypertension, hyperlipidemia, family history of early coronary artery disease, obstructive sleep apnea status post surgical revision and no current CPAP use, and remote history of tobacco dependence quit 30-40 years ago. Recently, the patient has had complaints of burning type chest pain with activity which has been relieved by resting. His symptoms have been associated with some shortness of breath and diaphoresis. Subsequently he was seen by Dr. Randall his transplant registered nurse and on 12/30/2017 underwent an elective heart catheterization which demonstrated a 70% stenosis to his right coronary artery, a 90% stenosis to his circumflex coronary artery, a 20% stenosis to his proximal left anterior descending coronary artery, and a 95% stenosis to his mid left anterior descending coronary artery. Also during heart catheterization a left ventriculogram was completed and demonstrated an ejection fraction of 45%. Due to the patient's history of coronary artery disease, above-mentioned symptoms and cardiac catheterization results a consult was placed for cardiothoracic surgery. He was subsequently seen in the office by Dr. Selam More who reviewed the cardiac catheterization films with the patient and his an elective coronary artery bypass grafting surgery was recommended. HOSPITAL COURSE: The patient was admitted to the hospital and after obtaining consent was taken to the operating room where Dr. Selam More performed an elective coronary artery bypass grafting 3 using the left internal mammary artery to left anterior descending coronary artery, a left radial artery from the aorta to the second obtuse marginal coronary artery, and a reverse greater saphenous vein graft from the aorta to the right coronary artery. He also underwent endoscopic harvesting of his left radial artery, endoscopic harvesting of the right greater saphenous vein from the knee to the ankle level , and underwent a intraoperative transesophageal echocardiogram, epi-aortic scanning and graft flow measurement using the Medistim system. He was subsequently transferred to the cardiovascular intensive care unit where he was recovered, monitored hemodynamically, and where he progressed cardiac rehabilitation phase 1. In the immediate postoperative period he required prolonged mechanical ventilation due to some postoperative respiratory failure due to some hypoxemia and hypercapnia which was an unexpected but potential outcome of surgery. He was subsequently extubated, all lines, tubes and supportive drips were discontinued when appropriate and he was transferred to [address] [place] [address] for further monitoring and rehabilitation. His oxygen was eventually titrated down, he continued to work with physical and occupational therapy and was ready to be discharged home on postop day #6. He has received written and verbal instructions regarding his medications, activity restrictions , signs and symptoms requiring physician notification and his follow-up appointments. COMPLICATIONS: His postoperative period was complicated by some paroxysmal atrial fibrillation and postoperative respiratory failure requiring prolonged mechanical ventilator support which was treated accordingly. CONSULTATIONS: 1. Dr. Randall for cardiology management. 2. Dr. Dorado for pulmonary and ventilator management. 3. Dr. Miles for medical management. DISCHARGE INSTRUCTIONS: 1. No driving for 4 weeks, or until physician gives their ok. 2. The patient should sleep in their own bed, no medical bed needed. 3. Stairs are not an issue. If the bedroom is upstairs, it is advised that the patient go up at night and down in the morning for the first week. Go slowly, using handrail and take 1 step at a time. 4. SERG hose are to be worn for 30 days or until physician discontinues. 5. Heart hugger is to be worn 100% of the time until physician discontinues.( except when showering) 6. No lifting, pushing, or pulling more than 10 pounds for 12 weeks. The physician will advise of any restriction changes. 7. The patient is expected to continue the prescribed walking program. 8. Continue pain control per as needed orders. 9. Continue with incentive spirometry and splinting/heart hugger until otherwise directed by the physician. 10. Must shower daily using liquid antibacterial soap and a separate white washcloth for each individual incision. 11. Routine sternal incision care, no ointments, lotions or powders on the incisions. 12. Please notify surgeon/nurse practitioner for temperature greater than 101F or purulent drainage from incisions 13. Prescriptions for first 30 days given per cardiac surgery service. After 30 days, all prescription refills obtained through cardiology/primary care physician. 14. A red arm and has been placed on this patient it should be worn for 30 days post surgery and will be removed by the cardiothoracic surgeons. If an ER visit is necessary, please make sure the number on the red arm band is called. 15. Opioid start talking form was filled out and discussed with the patient, as the patient will be discharged home on 1 week's worth of Conway for pain control. HOME HEALTH SERVICES TO PROVIDE: RN SKILLED HOME CARE SERVICES FOR POST-OP SURGICAL PATIENTS WITH THE FOLLOWING: Coronary Artery Bypass Surgery (CABG), Mitral Valve Replacement/ Repair ( MVR), Aortic Valve Replacement/Repair (AVR) RN TO CONTINUE EDUCATION FROM ``ROAD TO A HEALTH HEART PATIENT EDUCATION MANUAL" (GIVEN TO PATIENT IN THE HOSPITAL) MEDICATION RECONCILIATION WITH EDUCATION NEEDED ON FIRST HOME VISIT EMPHASIZE IMPORTANCE OF WEARING BREAST SUPPORT/HEART HUGGER ENCOURAGE USE OF INCENTIVE SPIROMETER 10 X EVERY HOUR WHILE AWAKE ENCOURAGE UTILIZATION OF LOWER EXTREMITY COMPRESSION STOCKINGS/SERG HOSE and ELEVATE LEGS ABOVE LEVEL OF HEART WHILE AT REST. ENCOURAGE AMBULATION 3-5x/day INCREASING TOLERATES, WHILE AVOID EXTREMES IN TEMPERATURE FREQUENCY: RN TO OPEN THE PATIENT WITHIN 24 HOURS OF DISCHARGE FROM THE HOSPITAL WITH TELEHEALTH INSTALLED AT [facility] – [place], [place], RN TO VISIT 2-3 X A WEEK FOR 4 WEEKS ESTABLISHED BY PATIENT NEEDS. REMOVAL OF SUTURES: NURSING SERVICES TO REMOVE SUTURES TWO WEEKS POST SURGICAL DATE 02/19/2018. If any questions regarding suture removal please call the office at [phone]. LABORATORY: CBC, CMP TO BE DRAWN ON THE THIRD DAY HOME, , 02/14/2018 (RAN STAT) FAX RESULTS TO [phone]. TELEHEALTH PARAMETERS: WEIGHT: NOTIFY MD OF WEIGHT GAIN OF 2 LBS IN 24 HOURS OR 5 LBS IN ONE WEEK HR: NOTIFY MD OF HR <55 BPM OR HR>100 BPM BP: NOTIFY MD IF BP <90/55 OR BP>140/100 O2 SAT: NOTIFY MD IF PO2<93% ON ROOM AIR SEND TELEHEALTH REPORT TO LEGAL SUPPORT MANAGER AND CARDIOVASCULAR SURGEON THE FIRST WEEK OF CARE AND THEN BI-WEEKLY. PLEASE ADDITIONALLY COMMUNICATE ANY ABNORMALS AND NEW FINDINGS TO THE SURGEONS OFFICE. Plan - Discharge Summary Discharge Rx Participant: Yes New Discharge Prescriptions: New HYDROcodone/APAP 5-325MG [Conway 5-325] 1 each PO Q6HR PRN #28 tab PRN Reason: Moderate Pain Amiodarone [Cordarone] 400 mg PO BID #33 tab Aspirin 325 mg PO DAILY #30 tab Benzonatate [Tessalon Perles] 200 mg PO TID #21 cap Budesonide 1 mg INHALATION BID #60 neb Diltiazem Oral [Cardizem*] 30 mg PO QID #30 tab Ezetimibe [Zetia] 10 mg PO DAILY #30 tab Losartan [Cozaar] 25 mg PO DAILY #30 tab Metoprolol Tartrate [Lopressor] 75 mg PO BID #180 tab Pantoprazole [Protonix] 40 mg PO AC-BRKFST #30 tablet.dr Ramos-Cod 6.25-10 mg/5 ml [Phenergan with Codeine] 5 ml PO Q6H PRN #210 ml PRN Reason: Cold Symptoms Sennosides-Docusate Sodium [Senokot-S] 2 each PO HS #60 tab Continue Atorvastatin [Lipitor] 80 mg PO HS #90 tab Levothyroxine Sodium [Synthroid] 50 mcg PO HS Clopidogrel [Plavix] 75 mg PO DAILY INSULIN LISPRO (For Pump) [humaLOG (For Pump)] 0.01 units SQ-PUMP CONTINUOUS Discontinued Metoprolol Tartrate [Lopressor] 50 mg PO DAILY Nitroglycerin Sl Tabs [Nitrostat] 0.4 mg SUBLINGUAL Q5M PRN #25 tab PRN Reason: Chest Pain Isosorbide Mononitrate [Isosorbide Mononitrate ER] 30 mg PO DAILY Aspirin [Adult Low Dose Aspirin EC] 81 mg PO DAILY Enalapril [Vasotec] 20 mg PO DAILY Mupirocin 2% Nasal Oint [Bactroban 2% Nasal Oint] 1 applic NASAL BID Discharge Medication List Atorvastatin [Lipitor] 80 mg PO HS #90 tab 03/30/16 [Rx] Levothyroxine Sodium [Synthroid] 50 mcg PO HS 01/24/18 [History] Clopidogrel [Plavix] 75 mg PO DAILY 02/04/18 [History] INSULIN LISPRO (For Pump) [humaLOG (For Pump)] 0.01 units SQ-PUMP CONTINUOUS 10/25 [History] Amiodarone [Cordarone] 400 mg PO BID #33 tab 02/11/18 [Rx] Aspirin 325 mg PO DAILY #30 tab 02/11/18 [Rx] Benzonatate [Tessalon Perles] 200 mg PO TID #21 cap 02/11/18 [Rx] Budesonide 1 mg INHALATION BID #60 neb 02/11/18 [Rx] Diltiazem Oral [Cardizem*] 30 mg PO QID #30 tab 02/11/18 [Rx] Ezetimibe [Zetia] 10 mg PO DAILY #30 tab 02/11/18 [Rx] HYDROcodone/APAP 5-325MG [Conway 5-325] 1 each PO Q6HR PRN #28 tab 02/11/18 [Rx] Losartan [Cozaar] 25 mg PO DAILY #30 tab 02/11/18 [Rx] Metoprolol Tartrate [Lopressor] 75 mg PO BID #180 tab 02/11/18 [Rx] Pantoprazole [Protonix] 40 mg PO AC-BRKFST #30 tablet. 02/11/18 [Rx] Promethaz-Cod 6.25-10 mg/5 ml [Phenergan with Codeine] 5 ml PO Q6H PRN #210 ml 02/11/18 [Rx] Sennosides-Docusate Sodium [Senokot-S] 2 each PO HS #60 tab 02/11/18 [Rx] Follow up Appointment(s)/Referral(s): Shanel Gutiérrez NPC [Nurse Practitioner] - 02/18/18 1:00 pm ([address] [place] [address] [address] [place], [place]) Felicia Randall MD [STAFF PHYSICIAN] - 02/25/18 3:45 pm Selam More MD [STAFF PHYSICIAN] - 03/08/18 11:30 am () Alexander Miles DO [Primary Care Provider] - 02/19/18 1:20 pm Gaetano Dorado DO [Doctor of Osteopathic Medicine] - 02/22/18 10:30 am [facility] Visiting Nurse, [NON-STAFF] - As Needed Ambulatory/Diagnostic Orders: Complete Blood Count w/diff [LAB.AMB] Time Frame: 02/14/18, Facility: [facility], Location: [facility] Comprehensive Metabolic Panel [LAB.AMB] Time Frame: 02/14/18, Facility: [facility], Location: [facility] Patient Instructions/Handouts: Sternal Precautions (GEN), Coronary Artery Bypass Graft (DC) Discharge Disposition: HOME WITH HOME HEALTH SERVICES
--- NOTE | 2018-02-11 15:04 | P.PN ---
Subjective Progress Note Date: 02/11/18 Principal diagnosis: S/P CABG This is a 67 year old gentleman who is status post four-vessel bypass grafting surgery. He was seen and examined today on the telemetry unit. Continues to have a hacking cough, mostly at night. Chest x-ray was reviewed which does show some atelectasis in the left base. He does have some crackles noted there. Patient is doing well on his incentive spirometry. Blood pressure 158/80 with a heart rate in the 90s. We will start the patient on losartan 25 mg daily today for more optimal blood pressure control. White Blood cell count normal, hemoglobin 12.2, platelet count 248. Sodium 145, potassium 4.3, BUN 23, creatinine 1.2. Objective - Vital Signs Vital signs: Vital Signs Temp 97.7 F 02/11/18 08:00 Pulse 88 02/11/18 11:58 Resp 16 02/11/18 11:58 BP 159/80 02/11/18 08:00 Pulse Ox 97 02/11/18 08:00 Intake & Output 02/10/18 02/11/18 02/11/18 18:59 06:59 18:59 Intake Total 450 600 Output Total 450 200 600 Balance 0 -200 0 Weight 112.9 kg Intake: Oral 450 600 Output: Urine 450 200 600 Other: Voiding Method Urinal Urinal Urinal # Voids 1 1 # Bowel Movements 1 ABP, PAP, CO, CI - Last Documented Arterial Blood Pressure 155/71 Pulmonary Artery Pressure 37/16 Cardiac Output 6.8 Cardiac Index 3 - Exam PHYSICAL EXAMINATION: HEENT: Head is atraumatic, normocephalic. Pupils equal, round. Neck is supple. There is no elevated jugular venous pressure. HEART EXAMINATION: Heart S1, S2 normal. No murmur or gallop heard. CHEST EXAMINATION: Lungs reveal crackles to the left posterior base ABDOMEN: Soft, nontender. Bowel sounds are heard. No organomegaly noted. EXTREMITIES: 2+ peripheral pulses with no evidence of peripheral edema and no calf tenderness noted. Bilateral SERG hose in place. NEUROLOGIC patient is awake, alert and oriented -3. . - Labs CBC & Chem 7: 02/11/18 06:38 02/11/18 06:38 Labs: Abnormal Lab Results - Last 24 Hours (Table) 02/10/18 02/10/18 02/11/18 Range/Units 16:20 21:11 06:38 Hgb 12.2 L (13.0-17.5) gm/dL Hct 37.6 L (39.0-53.0) % BUN (9-20) mg/dL POC Glucose (mg/dL) 104 H 247 H (75-99) mg/dL ALT (21-72) U/L Total Protein (6.3-8.2) g/dL 02/11/18 02/11/18 Range/Units 06:38 11:52 Hgb (13.0-17.5) gm/dL Hct (39.0-53.0) % BUN 23 H (9-20) mg/dL POC Glucose (mg/dL) 129 H (75-99) mg/dL ALT 15 L (21-72) U/L Total Protein 6.1 L (6.3-8.2) g/dL Microbiology - Last 24 Hours (Table) 02/08/18 10:12 Gram Stain - Final Sputum Sputum Culture - Final Assessment and Plan Plan: Assessment and plan #1 status post coronary artery bypass grafting surgery #2 diabetes #3 hypertension #4 hyperlipidemia Number 5 obstructive sleep apnea #6 history of nicotine dependence Plan Patient will be discharged home today. He will follow-up with Dr. Randall in the office post discharge. He has been encouraged regarding the importance of using his incentive spirometry, and coughing and deep breathing. We will add Cozaar 25 mg daily to the patient's medication regime. DNP note has been reviewed, I agree with a documented findings and plan of care. Patient was seen and examined.
[2018-02-11 15:21] VITALS: RESP 14
[2018-02-11 15:41] VITALS: PULSE 75
--- NOTE | 2018-02-11 16:17 | P.PN ---
Subjective Progress Note Date: 02/11/18 Principal diagnosis: Coronary artery disease, status post four-vessel bypass grafting Progress note dated 02/07/2018 67-year-old male postop day #2, status post four-vessel bypass grafting. The patient had some issues with oxygenation and ventilation initially coming out of the operating room. Yesterday, finally after couple weaning attempts, we will extubate the patient. The patient failed his weaning parameters prior to extubation. The patient has a history of diabetes mellitus, managed by insulin pump, CAD with previous myocardial infarction 2016, with previous stent placement to the LAD, hypertension, hyperlipidemia, sleep apnea syndrome and previous tobacco use. The patient did better yesterday after we switched him to dexmedetomidine and DC his propofol. The patient was having arthritis as well. That was treated with narcotics. In addition, the blood pressure was either high or low throughout the day. Needless to say, I'm very happy that we' re able to get him extubated. Currently, the patient is resting comfortably. The patient is currently on 15 L high flow but that'll be titrated down pending his saturations, receiving lactated Ringer's at 50 mL an hour, Cordarone at 1 mg /m, insulin drip at 6.5 units per hour and nitroglycerin at 5 mics per minute. He did develop atrial fibrillation with RVR last night. He was extubated on February 06. Chest x-ray my opinion show some mild fluid overload. He is awake and alert. Progress note dated 02/08/2018 This is a 67-year-old male, postop day #3, status post four-vessel bypass grafting. The patient had some issues with oxygenation and ventilation initially after the surgery. Eventually, the patient was weaned and extubated. This was a day ago. The patient has a history of diabetes mellitus managed by insulin pump, CAD, with previous myocardial infarction, 2017, previous stent placement to the LAD, hypertension, hyperlipidemia, sleep apnea syndrome and previous tobacco use. Currently, the patient's on O2 with 10 L high flow. He' s getting a saline IV at KVO. Chest x-ray seems to show some mild fluid overload. His CVP is not particularly high. He has not been seen by cardiothoracic as yet. I will let them decide whether or not they want to give him some additional diuretic at this point. Other than that, he is resting comfortably. His Cordarone has been weaned off. Nitroglycerin has been weaned off. Labs x-rays and medications are all reviewed. Progress note dated 02/09/2018. 67-year-old male, postop day #4, status post four-vessel bypass grafting. The patient had some initial issues with both oxygenation and ventilation postsurgically. The eventually resolved. He was weaned and extubated. The patient is doing relatively well now. He has a history of diabetes managed by insulin pump CAD previous myocardial infarction and stent placement 2017 hypertension hyperlipidemia sleep apnea syndrome previous tobacco use. The patient's is in the room with him. His only issue right now is a lot of coughing. We had some Tessalon Perles and some codeine containing cough syrup for that. Other than that, he seemed to do relatively well. He is currently receiving O2 at 2 L and no IV. Progress note dated 02/10/2018 67-year-old male, postop day #5, status post four-vessel bypass grafting. The patient is doing much better. His biggest issue right now is persistent cough. Yesterday we added some promethazine with codeine cough syrup as well as some Tessalon Perles. The patient's cough is improved but he still is having some issues. The patient has a history of diabetes CAD myocardial infarction previous stent placement hypertension hyperlipidemia sleep apnea syndrome and previous tobacco use. He is currently still on O2 at 2 L. Hemodynamically he is stable. His cough is a bit better today. On 02/11/2018 patient seen in follow-up on selective care unit. He is ambulating, he is denies any acute distress. He is on room air, with pulse ox of 97%, vital signs are stable, he is afebrile. He still has the persistent coughing, wheezing and bedtime. The patient was started on Phenergan with codeine, and Tessalon Perles, and patient reports improvement with his coughing. Today's chest x-ray was reviewed, and showed stable findings, mild cardiomegaly with pleural effusion and left basilar atelectasis. Lung sounds are positive for bibasilar crackles, no phlegm production. Patient remains on DuoNeb nebulized treatments, and Pulmicort. Anticipate discharge home today, and the patient can go home on promethazine with codeine cough syrup, Tessalon Perles, and Pulmicort nebulized treatments for one week. Patient's Spouse has a nebulizer machine which the patient can use. Patient will be in the follow-up in the office after discharge within 1-2 weeks. Patient remains stable from pulmonary standpoint and is stable for discharge home today. Objective - Vital Signs Vital signs: Vital Signs Temp 97.7 F 02/11/18 08:00 Pulse 75 02/11/18 15:37 Resp 14 02/11/18 12:00 BP 159/80 02/11/18 08:00 Pulse Ox 97 02/11/18 08:00 Intake & Output 02/10/18 02/11/18 02/11/18 18:59 06:59 18:59 Intake Total 450 600 Output Total 450 200 600 Balance 0 -200 0 Weight 112.9 kg Intake: Oral 450 600 Output: Urine 450 200 600 Other: Voiding Method Urinal Urinal Urinal # Voids 1 1 # Bowel Movements 1 ABP, PAP, CO, CI - Last Documented Arterial Blood Pressure 155/71 Pulmonary Artery Pressure 37/16 Cardiac Output 6.8 Cardiac Index 3 - Exam No acute distress, oriented 3. Nasal O2 at [address] HEENT examination is grossly unremarkable. Mucous membranes are moist. No oral lesions. Neck supple. Full range of motion. No adenopathy thyromegaly or neck vein distention. Cardiovascular examination reveals regular rhythm rate. S1-S2 normal. No S3 or S4. No discernible murmur noted. Lungs reveal few scattered rales at posterior bilateral bases. Breath sounds equal. A few crackles are appreciated. No wheezes.. Abdomen soft bowel sounds are heard. No masses or tenderness. Extremities are intact. No cyanosis clubbing or edema. Skin is without rash or lesion. Neurologic examination is brief but nonfocal. - Labs CBC & Chem 7: 02/11/18 06:38 02/11/18 06:38 Labs: Abnormal Lab Results - Last 24 Hours (Table) 02/10/18 02/10/18 02/11/18 Range/Units 16:20 21:11 06:38 Hgb 12.2 L (13.0-17.5) gm/dL Hct 37.6 L (39.0-53.0) % BUN (9-20) mg/dL POC Glucose (mg/dL) 104 H 247 H (75-99) mg/dL ALT (21-72) U/L Total Protein (6.3-8.2) g/dL 02/11/18 02/11/18 Range/Units 06:38 11:52 Hgb (13.0-17.5) gm/dL Hct (39.0-53.0) % BUN 23 H (9-20) mg/dL POC Glucose (mg/dL) 129 H (75-99) mg/dL ALT 15 L (21-72) U/L Total Protein 6.1 L (6.3-8.2) g/dL Assessment and Plan Plan: Assessment: Postop day #6, status post 4 vessel bypass grafting Status post postoperative respiratory failure, resolved, the postoperative period being complicated by both hypoxemic and hypercapnia. History of CAD with previous myocardial infarction, 2017 and previous stent placement in the proximal LAD History of diabetes mellitus, type I, with intensive therapy via insulin pump History of hypertension Hyperlipidemia by history History of sleep apnea syndrome Previous history of tobacco use Plan: Patient can continue on Phenergan with codeine, Tessalon Perles, and Pulmicort nebulized treatments twice daily for another week, he reports improvement with his coughing. He remained stable from pulmonary standpoint, follow-up with Dr. Dorado in the office on 02/22/2017 at 10:30 AM. Patient is stable for discharge home today. I performed a history & physical examination of the patient and discussed their management with my nurse practitioner, Olena Ash. I reviewed the nurse practitioner's note and agree with the documented findings and plan of care. Lung sounds are bibasilar crackles. The findings and the impression was discussed with the patient. I attest to the documentation by the nurse practitioner. Time with Patient: Less than 30
== END 2018-02-11 16:22 | disposition home health service (06) | DRG 235 ==
LOC: 2ORMAIN 05:33 → 6ICU 13:47 → 6SEL 02-10 16:17
PROVIDERS: ADMIT Surgery; ATTEND Surgery
PROC: 06BP4ZZ Excision of Right Saphenous Vein, Percutaneous Endoscopic Approach (ICD-10-PCS; principal; 2018-02-05 08:00)
PROC: 05BA4ZZ Excision of Left Brachial Vein, Percutaneous Endoscopic Approach (ICD-10-PCS; principal; 2018-02-05 08:00)
PROC: 5A1221Z Performance of Cardiac Output, Continuous (ICD-10-PCS; principal; 2018-02-05 08:00)
PROC: 4A0305C Measurement of Arterial Flow, Coronary, Open Approach (ICD-10-PCS; principal; 2018-02-05 08:00)
PROC: 02100Z9 Bypass Coronary Artery, One Artery from Left Internal Mammary, Open Approach (ICD-10-PCS; principal; 2018-02-05 08:00)
PROC: 02100AW Bypass Coronary Artery, One Artery from Aorta with Autologous Arterial Tissue, Open Approach (ICD-10-PCS; principal; 2018-02-05 08:00)
PROC: 021009W Bypass Coronary Artery, One Artery from Aorta with Autologous Venous Tissue, Open Approach (ICD-10-PCS; principal; 2018-02-05 08:00)
DX: I25.10 Atherosclerotic heart disease of native coronary artery without angina pectoris (principal); J95.821 Acute postprocedural respiratory failure; J90 Pleural effusion, not elsewhere classified; J98.11 Atelectasis; E10.9 Type 1 diabetes mellitus without complications; E66.9 Obesity, unspecified; E78.5 Hyperlipidemia, unspecified; E87.70 Fluid overload, unspecified; F17.201 Nicotine dependence, unspecified, in remission; G47.33 Obstructive sleep apnea (adult) (pediatric); I11.9 Hypertensive heart disease without heart failure; I25.2 Old myocardial infarction; I48.0 Paroxysmal atrial fibrillation; I83.90 Asymptomatic varicose veins of unspecified lower extremity; J44.9 Chronic obstructive pulmonary disease, unspecified; Z68.37 Body mass index [BMI] 37.0-37.9, adult; Z79.02 Long term (current) use of antithrombotics/antiplatelets; Z79.4 Long term (current) use of insulin; Z79.82 Long term (current) use of aspirin; Z79.899 Other long term (current) drug therapy; Z82.49 Family history of ischemic heart disease and other diseases of the circulatory system; Z95.5 Presence of coronary angioplasty implant and graft; Z96.41 Presence of insulin pump (external) (internal); Z79.890 Hormone replacement therapy
CPT/HCPCS: 71045; 71046; 80048; 80053; 82330; 82805; 83036; 83735; 84132; 85025; 85027; 85520; 85610; 85730; 86850; 86891; 86900; 86901; 86920; 87070; 87205; 94002; 94003; 94640

== ENCOUNTER → 2018-03-01 | Outpatient (CLI) | payer MEDICARE ==
--- NOTE | 2018-03-01 11:16 | US ---
EXAMINATION TYPE: US venous doppler duplex LE LT DATE OF EXAM: 03/01/2018 10:51 AM COMPARISON: NONE CLINICAL HISTORY: M25.562 LT KNEE PAIN. SIDE PERFORMED: Left TECHNIQUE: The lower extremity deep venous system is examined utilizing real time linear array sonog jose antonio with graded compression, doppler sonography and color-flow sonography. VESSELS IMAGED: External Iliac Vein (EIV) Common Femoral Vein Deep Femoral Vein Greater Saphenous Vein * Femoral Vein Popliteal Vein Small Saphenous Vein * Proximal Calf Veins (* superficial vessels) Left Leg: Negative for DVT IMPRESSION: 1. Left lower extremity venous ultrasound negative for deep venous thrombosis.
== END | disposition home or self-care (01) ==
LOC: RADUSWWP 10:25
PROVIDERS: ATTEND Family Medicine
DX: M25.562 Pain in left knee (principal)

== ENCOUNTER 2019-02-13 10:59 | Day surgery (SDC) | payer MEDICARE ==
[2019-02-10 16:08] VITALS: BMI 34.6
--- NOTE | 2019-02-12 13:37 | HP ---
HISTORY AND PHYSICAL Surgery is 02/13/2019. Wayne Fermin is a 68-year-old patient seen with progressive left knee pain. We discussed treatment options with him. He elected to proceed with arthroscopy. Consent regarding the procedure was obtained. Medical clearance was provided by Dr. Miles. Cardiac clearance was provided by Dr. Randall. PAST MEDICAL HISTORY: Cardiovascular disease, hypertension, hyperlipidemia, insulin-dependent diabetes, hypothyroidism. PAST SURGICAL HISTORY: Noncontributory. DAILY MEDICATIONS: 1. Levothyroxine. 2. Metoprolol. 3. Aspirin. 4. Atorvastatin. 5. Fluconazole. 6. Losartan. 7. NovoLog insulin. 8. Plavix. ALLERGIES: None. SOCIAL HISTORY: Denies current tobacco use. PHYSICAL EXAMINATION: Physical evaluation of the left knee: His range of motion is 0 to 120 degrees. There is tenderness along the medial joint line. Positive medial Gurpreet's. Some crepitus along the medial patellofemoral compartments. Ligaments are stable. Hip rotation is without pain. Distal neurovascular exam is intact. Left knee radiographs reveal moderate medial compartment osteoarthritis of the left knee. MRI revealed medial meniscal tear, MCL sprain, bone contusion. IMPRESSION: 1. Internal derangement left knee with medial meniscal tear. 2. Left knee osteoarthritis. 3. Cardiovascular disease. 4. Hypertension. 5. Hypothyroidism. 6. Insulin-dependent diabetes. PLAN: Left knee arthroscopy with partial meniscectomy and debridement. MMGENOL / TERENCEN: [id number] /
[~2019-02-13 10:59] MED LIST changes: -ALBUMIN HUMAN 25% 50 ML IV ONE; -ALBUMIN HUMAN 5% 500 ML IVPB ONE; -ASPIRIN 325 MG TAB PO ONE; -ATORVASTATIN 10 MG TAB PO ONE; -CALCIUM CHLORIDE 100 MG/ML 10 ML SYRINGE IV ONE; -CHLORHEXIDINE GLUCONATE 15 ML CUP MUCOUS MEM ONE; -CLEVIDIPINE BUTYRATE 25 MG in EMPTY BAG 1 BAG IV ONE; +DEXAMETHASONE SOD PHOSPHATE 10 MG/ML 1 ML VIAL IV ONE; -DEXTROSE 5% IN WATER 1,000 ML with POTASSIUM CHLORIDE 110 MEQ, MAGNESIUM SULFATE 16 MEQ... IV ONE; -DEXTROSE 5% IN WATER 1,000 ML with POTASSIUM CHLORIDE 25 MEQ, SODIUM CHLORIDE 2.5MEQ/ML... IRRIGATION ONE; -HEPARIN SODIUM 1,000 UN/ML (10ML VL) IV ONE; -HEPARIN SODIUM,PORCINE 5,000 UNIT in SODIUM CHLORIDE 0.9% 500 ML IV ONE; +HYDROmorphone 0.5 MG/0.5 ML SYRINGE IVP PRN; -INSULIN REGULAR 100 UNIT in SODIUM CHLORIDE 0.9% 100 ML IV ONE; -LACTATED RINGERS 1,000 ML IV ONE; +LIDOCAINE 1% 20 ML VIAL (10MG/ML) FOR IV START INTRADERMA PRN; -MAGNESIUM SULFATE MG 500 MG/ML VIAL IV ONE; -MANNITOL 25% 12.5 GM/50 ML VIAL IV ONE; -METOPROLOL TARTRATE 12.5 MG TAB PO ONE; +MIDAZOLAM (PF) 2 MG/2 ML VIAL IV PRN; -NITROGLYCERIN SL TABS 0.4 MG TAB SUBLINGUAL ONE; -NITROGLYCERIN-D5W PMX 25 MG/250 ML BTL IV ONE; -NITROGLYCERIN-D5W PMX 50 MG in DEXTROSE/WATER 1 250ML.BAG IV ONE; -NOREPINEPHRIN 4 MG-0.9% NS PMX 4 MG/250 ML ML IV ONE; +ONDANSETRON 4 MG/2 ML VIAL IVP ONE; -PAPAVERINE 360 MG in SODIUM CHLORIDE 0.9% 90 ML IV ONE; -PHENYLEPHRINE 40 MG in SODIUM CHLORIDE 0.9% 250 ML IV ONE; -PHENYLEPHRINE-0.9% NACL SYG 1 MG/10 ML SYRINGE IV ONE; -PROPOFOL 1,000 MG/100 ML VIAL IV ONE; -PROTAMINE SULFATE 10 MG/ML 25 ML VIAL IV ONE; -PROTAMINE SULFATE 250 MG in EMPTY BAG 1 BAG IV ONE; +SCOPOLAMINE 1.5MG/72HR PATCH TRANSDERM ONE; -SODIUM BICARB 8.4% 50 ML SYR (1 MEQ/ML) IV ONE; -SODIUM CHLORIDE 0.9% 1,000 ML IV ONE; -TRANEXAMIC ACID 2,000 MG in SODIUM CHLORIDE 0.9% 180 ML IV ONE; -ceFAZolin 1,000 MG in SODIUM CHLORIDE 0.9% IRRIGATIO 1,000 ML IRRIGATION ONE; -ceFAZolin 2,000 MG in SODIUM CHLORIDE 0.9% 30 ML IVPB ONE; +ceFAZolin IN SWFI 2 GM/20 ML SYRINGE IVP ONE
[2019-02-13] MEDS: LACTATED RINGERS 1,000 ML IV SCH ×2 (11:31→13:07)
[2019-02-13 11:38] LABS: Glucose,Whole Blood 125 mg/dL (75-99)
[2019-02-13] MEDS ORDERED: fentaNYL (PF) 50 MCG/ML 2 ML AMP ONE (13:10)
[2019-02-13] MEDS ORDERED: MIDAZOLAM 2 MG/2 ML VIAL ONE (13:10)
[2019-02-13] MEDS ORDERED: PROPOFOL 10 MG/ML 20 ML VIAL IV ONE (13:10)
[2019-02-13] MEDS ORDERED: LIDOCAINE 1% INJ 10MG/ML (20 ML MDV) ONE (13:10)
[2019-02-13] MEDS ORDERED: BUPIVACAIN-EPI 0.5%-1:200,000 30 ML VIAL SQ ONE ×2 (13:11→13:27)
--- NOTE | 2019-02-13 14:06 | P.OP ---
Date of Procedure: 02/13/19 Preoperative Diagnosis: Internal derangement left knee Postoperative Diagnosis: 1. Tear medial meniscus left knee 2. Grade 2 chondromalacia medial femoral condyle left knee 3. Reactive synovitis medial, lateral and suprapatellar compartments left knee Procedure(s) Performed: 1. Arthroscopic partial medial meniscectomy left knee 2. Arthroscopic chondroplasty medial femoral condyle left knee 3. Arthroscopic partial synovectomy medial, lateral and suprapatellar compartments left knee Anesthesia: REZAA, local Surgeon: Andreas Barton Estimated Blood Loss (ml): 6 Pathology: none sent Condition: stable Disposition: PACU Indications for Procedure: 68-year-old patient seen with progressive left knee pain. After having treatment options discussed, he elected to proceed with arthroscopy. Operative Findings: see description of procedure Description of Procedure: Patient was taken to the operative suite. Patient underwent a general anesthetic by the department of anesthesia. Patient was given preoperative antibiotics. The left lower extremity was placed in a well-padded arthroscopic leg macedo. The left leg was prepped and draped in the normal sterile orthopedic fashion. A lateral parapatellar and suprapatellar incision was made. Trochars were inserted. Arthroscopy was initiated. Suprapatellar pouch revealed diffuse thick reactive synovitis. The patellofemoral joint appeared to articulate congruently. There was grade 1/2 chondromalacia of the patellofemoral joint. The scope was guided into the medial gutter.Bodies or plica were identified. The scope was then guided into the medial compartment. A medial parapatellar incision was made. Trocar inserted followed by probe. There was a complex tear involving the mid body and posterior horn medial meniscus. There was areas of grade 2 chondromalacia of the medial femoral condyle with flap tears. There was thick reactive synovitis anteriorly. I performed a partial medial meniscectomy down to stable tissue. I performed a chondroplasty of the medial femoral condyle down to stable tissue. I performed a partial synovectomy decompressing the thick reactive synovitis. There was good stability about the residual meniscus. Residual osteochondral surface appeared stable. There was good decompression of the synovitis. Scope and probe were then guided into the intercondylar notch. Cruciates were identified, probed and found to be stable. The scope and probe were then guided into lateral compartment.. There was thick reactive synovitis along the anterior aspect lateral compartment. There were some mild grade 1 chondromalacia ch anges. The meniscus was intact. I performed a partial synovectomy decompressing the reactive synovitis. There was good decompression of synovitis. The scope was in guided back into the suprapatellar compartment. I introduced a motorized shaver into the super patellar compartment. I debrided some piecemeal fragments of meniscus I encountered. I performed a partial synovectomy. Shaver was removed. I took one more look on the entire knee, no residual debris. Instruments were now removed from the joint. The joint was infiltrated with .25% Marcaine. Steri-Strips were applied to the portal sites. Sterile dressings were applied. The patient was placed into a SERG hose. No tourniquet was utilized. The patient was awakened, transferred to a bed and taken to recovery stable satisfactory condition.
[2019-02-13 14:11] LABS: Glucose,Whole Blood 155 mg/dL (75-99)
[2019-02-13 14:12] VITALS: TEMP 96.9
[2019-02-13 15:18] VITALS: BP 143/80; RESP 18
[2019-02-13 15:25] VITALS: PULSE 70
== END 2019-02-13 15:55 | disposition home or self-care (01) ==
LOC: OR 10:59
PROVIDERS: ATTEND Orthopaedic Surgery
DX: S83.242A Other tear of medial meniscus, current injury, left knee, initial encounter (principal); X58.XXXA Exposure to other specified factors, initial encounter; M94.262 Chondromalacia, left knee; M65.862 Other synovitis and tenosynovitis, left lower leg; M17.12 Unilateral primary osteoarthritis, left knee; I25.10 Atherosclerotic heart disease of native coronary artery without angina pectoris; I10 Essential (primary) hypertension; E03.9 Hypothyroidism, unspecified; E11.9 Type 2 diabetes mellitus without complications; Z95.1 Presence of aortocoronary bypass graft; I25.2 Old myocardial infarction; G47.33 Obstructive sleep apnea (adult) (pediatric); Z79.02 Long term (current) use of antithrombotics/antiplatelets; Z79.82 Long term (current) use of aspirin; Z79.890 Hormone replacement therapy; Z79.4 Long term (current) use of insulin; Z79.899 Other long term (current) drug therapy
CPT/HCPCS: 29881; J2250; J1100; J2405; J2001; J3010; J2704; J0690

== ENCOUNTER → 2020-02-10 | Outpatient (CLI) | payer MEDICARE ==
[2020-02-10 16:00] LABS: African American GFR (CKD) 79.5 (60.0-200.0); Albumin 4.2 g/dL (3.80-4.90); Albumin/Globulin Ratio 2.21 (1.60-3.17); Anion Gap 10.6 mmol/L (4.00-12.00); BUN/Creat Ratio 20.91 Ratio (12.00-20.00); Calcium 9.4 mg/dL (8.7-10.3); Carbon Dioxide 28.4 mmol/L (21.6-31.8); Chol/HDL Ratio 3.43; Globulin 1.9 g/dL (1.6-3.3); LDL Cholesterol,Calculated 56.2 mg/dL (0.0-131.0); Non-African American GFR(CKD) 68.6 (60.0-200.0); Potassium 4.4 mmol/L (3.5-5.5); Total Bilirubin 0.9 mg/dL (0.3-1.2); Total Protein 6.1 g/dL (6.2-8.2); VLDL Calculation 16.8 mg/dL (5.00-40.00)
[2020-02-10 16:22] LABS: Urine Creatinine 234.2 mg/dL
[2020-02-10 17:28] LABS: Hemoglobin A1C 8.4 % (4.0-6.0)
== END | disposition home or self-care (01) ==
LOC: LABWHC1 09:18
PROVIDERS: ATTEND Internal Medicine Endocrinology, Diabetes & Metabolism
DX: E78.2 Mixed hyperlipidemia (principal); E11.65 Type 2 diabetes mellitus with hyperglycemia
CPT/HCPCS: 36415; 80053; 80061; 82043; 82570; 83036; 84443

== ENCOUNTER → 2020-07-08 | Outpatient (CLI) | payer MEDICARE | END | disposition home or self-care (01) | LOC: LABPAT 10:16 | PROVIDERS: ATTEND Surgery | DX: U07.1 COVID-19 (principal) | CPT/HCPCS: U0003; C9803 ==

== ENCOUNTER 2020-07-16 06:55 | Day surgery (SDC) | payer MEDICARE ==
[2020-07-14 14:35] VITALS: BMI 37.3
[~2020-07-16 06:55] MED LIST changes: -DEXAMETHASONE SOD PHOSPHATE 10 MG/ML 1 ML VIAL IV ONE; -HYDROmorphone 0.5 MG/0.5 ML SYRINGE IVP PRN; +LACTATED RINGERS 1,000 ML IV SCH; +LIDOCAINE 1% (10MG/ML) FOR IV START INTRADERMA PRN; -LIDOCAINE 1% 20 ML VIAL (10MG/ML) FOR IV START INTRADERMA PRN; -MIDAZOLAM (PF) 2 MG/2 ML VIAL IV PRN; -ONDANSETRON 4 MG/2 ML VIAL IVP ONE; -SCOPOLAMINE 1.5MG/72HR PATCH TRANSDERM ONE; -ceFAZolin IN SWFI 2 GM/20 ML SYRINGE IVP ONE
[2020-07-16 07:20] VITALS: TEMP 98.1
[2020-07-16] MEDS ORDERED: PROPOFOL 10 MG/ML 20 ML VIAL IV ONE (07:38)
--- NOTE | 2020-07-16 07:39 | P.GSHP ---
History of Present Illness H&P Date: 07/16/20 69-year-old male presents today for an elective colonoscopy. His last colonoscopy was 7 or 8 years ago. He denies any blood in his stool. He denies any family history of colon cancer. He denies any personal history of colon polyps. He states that the prep was satisfactory. He denies any nausea vomiting. He denies any recent fevers, chills, chest pain or shortness of breath. He does state that he has had a previous hemorrhoid surgery. - Review of Systems All systems: negative Past Medical History Past Medical History: Coronary Artery Disease (CAD), COPD, Diabetes Mellitus, Hyperlipidemia, Hypertension, Myocardial Infarction (AL), Sleep Apnea/CPAP/BIPAP Additional Past Medical History / Comment(s): NO CPAP MACHINE, ARTHRITIS KNEES, VARICOSE VEINS, SOB WITH WALKING, INSULIN PUMP. Last Myocardial Infarction Date:: 12/18/16 History of Any Multi-Drug Resistant Organisms: None Reported Past Surgical History: Appendectomy, Coronary Bypass/CABG, Heart Catheterization With Stent, Hernia Repair, Orthopedic Surgery, Tonsillectomy Additional Past Surgical History / Comment(s): 4 HEART STENTS (2016 @ [facility] & 2017 @ [place]), surgery for sleep apnea, INGUINAL HERNIA, LT KNEE SCOPE Past Anesthesia/Blood Transfusion Reactions: No Reported Reaction Date of Last Stent Placement:: 12/18/16 Smoking Status: Former smoker - Past Family History Mother Family Medical History: Osteoarthritis (OA) Additional Family Medical History / Comment(s): . Father Family Medical History: Coronary Artery Disease (CAD), Myocardial Infarction (AL) Additional Family Medical History / Comment(s): HAD QUAD BYPASS . AT AGE 60 FROM [place] Medications and Allergies Home Medications Medication Instructions Recorded Confirmed Type Atorvastatin [Lipitor] 80 mg PO HS #90 tab 03/30/16 07/16/20 Rx Levothyroxine Sodium [Synthroid] 100 mcg PO QAM 01/24/18 07/16/20 History Ezetimibe [Zetia] 10 mg PO DAILY #30 tab 02/11/18 07/16/20 Rx Aspirin 81 mg PO DAILY 02/10/19 07/16/20 History Insulin Aspart (For Pump) [NovoLOG 0.01 unit SQ-PUMP CONTINUOUS 02/10/19 07/16/20 History (For Pump)] Levothyroxine Sodium [Tirosint] 50 mcg PO HS 02/10/19 07/16/20 History Losartan [Cozaar] 25 mg PO QAM 02/10/19 07/16/20 History Metoprolol Tartrate [Lopressor] 50 mg PO BID 02/10/19 07/16/20 History Allergies Allergy/AdvReac Type Severity Reaction Status Date / Time No Known Allergies Allergy Verified 07/16/20 07:19 Surgical - Exam Osteopathic Statement: *. No significant issues noted on an osteopathic structural exam other than those noted in the History and Physical/Consult. Vital Signs Temp Pulse Resp BP Pulse Ox 98.1 F 87 16 157/83 98 07/16/20 07:07 07/16/20 07:07 07/16/20 07:07 07/16/20 07:07 07/16/20 07:07 - General well developed, well nourished, no distress - Eyes PERRL - Respiratory normal respiratory effort - Abdomen Soft, nontender, nondistended, no rebound, no guarding - Psychiatric oriented to time, oriented to person, oriented to place Assessment and Plan Plan: 69-year-old male presents for elective screening colonoscopy. Plan is for colonoscopy. Further recommendations after procedure.
[2020-07-16 07:42] LABS: Glucose,Whole Blood 87 mg/dL (75-99)
--- NOTE | 2020-07-16 08:01 | P.PCN ---
Date of Procedure: 07/16/20 Preoperative Diagnosis: Screening Postoperative Diagnosis: Transverse colon polyp Rectal polyp Internal hemorrhoids Procedure(s) Performed: Colonoscopy with hot snare polypectomy Surgeon: Idalia Duff Pathology: other (Polyps of the transverse colon and rectum) Condition: stable Disposition: same day Indications for Procedure: 69-year-old male presents for screening colonoscopy. He last colonoscopy was approximately 7 or 8 years ago. No history of polyps. No family history of colon cancer. Operative Findings: Transverse colon polyp Rectal polyp Internal hemorrhoids Description of Procedure: The patient was brought into the endoscopy suite. The patient was placed in left lateral decubitus position and adequate sedation was achieved using conscious sedation. A digital rectal exam was performed and mild internal hemorrhoids were palpated. An endoscope was then placed in the rectum and advanced to the cecum as identified by landmarks including the appendiceal orifice and the ileocecal valve. The prep was good. The Scope Was Then Slowly Withdrawn, Examining for Any Mucosal Abnormalities. The Cecum, Ascending, Transverse, Descending and Sigmoid Colon Were Visualized Adequately. A Small Polyp Was Noted in the Transverse Colon. This Was Removed with Hot Snare Polypectomy. An Additional Larger Polyp Was Noted in the Rectum. This Was Removed with Hot Snare Polypectomy. No Evidence of Diverticulosis. Retroflexion Was Performed in the Rectum and Mild Internal Hemorrhoids Were Visible. Excess Air Was Removed, the Colonoscope Withdrawn and the Procedure Terminated. The Patient Was Then Transferred to Recovery Unit in Stable Condition. Repeat Colonoscopy Should Be Performed in 5 Years.
[2020-07-16 08:19] VITALS: BP 132/75; PULSE 50; RESP 18
== END 2020-07-16 08:47 | disposition home or self-care (01) ==
LOC: ORWHC2ENDO 06:55
PROVIDERS: ATTEND Surgery
DX: Z12.11 Encounter for screening for malignant neoplasm of colon (principal); D12.8 Benign neoplasm of rectum; D12.3 Benign neoplasm of transverse colon; K64.8 Other hemorrhoids; I10 Essential (primary) hypertension; I25.10 Atherosclerotic heart disease of native coronary artery without angina pectoris; I25.2 Old myocardial infarction; J44.9 Chronic obstructive pulmonary disease, unspecified; E78.5 Hyperlipidemia, unspecified; E11.9 Type 2 diabetes mellitus without complications; M17.9 Osteoarthritis of knee, unspecified; I83.90 Asymptomatic varicose veins of unspecified lower extremity; G47.33 Obstructive sleep apnea (adult) (pediatric); Z79.4 Long term (current) use of insulin; Z79.890 Hormone replacement therapy; Z79.899 Other long term (current) drug therapy; Z95.5 Presence of coronary angioplasty implant and graft; Z95.1 Presence of aortocoronary bypass graft; Z98.890 Other specified postprocedural states; Z87.891 Personal history of nicotine dependence; Z82.61 Family history of arthritis; Z82.49 Family history of ischemic heart disease and other diseases of the circulatory system; Z79.82 Long term (current) use of aspirin
CPT/HCPCS: 88305; 45385; J2704